=== PATIENT | female | born 1930 | race Caucasian/White ===

== ENCOUNTER 2016-12-04 10:26 | Day surgery (SDC) | payer MEDICARE, OTHER ==
[~2016-12-04] VITALS: Ht 162.6 cm; Wt 62.0 kg
[2016-12-04] VITALS (22 sets, daily range): BP systolic 93–155; BP diastolic 53–82; PULSE 64–80; RESP 13–22; TEMP 96–98.3; O2SAT 91–100; Ht 162.6 cm; Wt 62.0 kg
[~2016-12-04 10:26] MED LIST: ACET-1651 PO; ASCO-324 PO; CEFAZOLIN 1 GRAM INJECTION IV ONE; LEVO150T11 PO; LIDOCAINE 1% (10mg/ml) 2ml SDV INJ ONE; METH25VI19 IJ; MULT-806 PO; NORMAL SALINE 1,000 ML IV ONE; NOZIN NASAL SWAB NS PRN; RIVA1.5C7 PO; ROSU10TA13 PO
--- OUTSIDE RECORDS SUMMARY | 2016-12-04 10:29 | XMS REPORT | Referral Summary ---
Author Author [facility], Shobha [facility], Surgery Organization [facility], [facility], Surgery Address Unknown Phone Unavailable Care Team Providers Care Diamond Cleaver Name Role Phone ConradsofyaEl Primary Care Physician [phone] Encounter VC Date(s): 12/13/14 - 12/13/14 [facility] [address] [place], [place] [address] Discharge Diagnosis: Port-a-cath in place Discharge Disposition: 01-Home or Self Care Attending Physician: Robert Harrell MD Admitting Physician: Robert Harrell MD Referring Physician: Rhiannon Adkins MD Vital Signs No data available for this section Problem List Condition Effective Dates Status Health Status Informant Glucocorticoid Active deficiency(Confirmed ) COPD(Confirmed) Active Macular degeneration Active (senile) unspec(Confirmed) Generalized Active osteoarthrosis, involving multiple sites(Confirmed) Depressive disorder, Active not elsewhere classified(Confirmed ) High risk medication Active use(Confirmed) Essential Active hypertension (disorder)(Confirmed ) 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) Esophageal Active reflux(Confirmed) Personal history of Active unspecified circulatory disease(Confirmed) Unspecified Active hypothyroidism(Confi rmed) Malignant neoplasm Active of breast (female), unspecified site(Confirmed) Malignant neoplasm Active of rectosigmoid junction(Confirmed) Mixed Active hyperlipidemia(Confi rmed) Osteoarthrosis site Active unspecified(Confirme d) Pure Active hypercholesterolemia (Confirmed) Rheumatoid Active arthritis(Confirmed) Unspecified vitamin Active D deficiency(Confirmed ) Allergies, Adverse Reactions, Alerts Substance Reaction Severity Status aspirin Dizziness Active clindamycin Active EPINEPHrine Active omeprazole Dizziness Active vancomycin Active Medications Calcium 600+D 600 mg-200 intl units oral tablet 1 tabs, Oral, BID, # 600 tabs, 0 Refill(s), other reason (Rx) Start Date: 04/14/15 Status: Ordered Crestor 10 mg oral tablet 10 mg 1 tabs, Oral, Daily, # 30 tabs, 0 Refill(s) Start Date: 04/14/15 Status: Ordered escitalopram 10 mg oral tablet 10 mg 1 tabs, Oral, Daily, # 90 tabs, 0 Refill(s) Start Date: 04/14/15 Status: Ordered folic acid 1 mg oral tablet 3 mg 3 tabs, Oral, Daily, # 270 tabs, 3 Refill(s), Pharmacy: [facility], 3 tabs Oral Daily Start Date: 06/16/15 Status: Ordered Lasix 20 mg oral tablet 1 tabs, Oral, Daily, # 90 tabs, 0 Refill(s) Start Date: 04/12/14 Status: Ordered levothyroxine 137 mcg (0.137 mg) oral tablet 1 tabs, Oral, Daily, # 90 tabs, 0 Refill(s) Start Date: 04/12/14 Status: Ordered Lutein 20 mg oral tablet 40 mg 2 tabs, Oral, Daily, # 60 tabs, 0 Refill(s), other reason (Rx) Start Date: 04/14/15 Status: Ordered methotrexate 25 mg/mL injectable solution 0.9 mL, SubCutaneous, qWeek, ON TUESDAYS. PLEASE DISPENSE LARGE VIAL, PT CANNOT USE SMALL VIALS D/T HAND DEXERITY, # 10 mL, 1 Refill(s), Pharmacy: [facility], 0.9 mL SubCutaneous qWeek,Instr:ON TUESDAYS. PLEASE DISPENSE LARGE VIAL, P... Start Date: 12/08/14 Status: Ordered miconazole 50 mg buccal tablet 50 mg 1 tabs, Buccal, QID, # 40 tabs, 0 Refill(s), Pharmacy: [facility], 1 tabs Buccal QID Start Date: 06/16/15 Status: Ordered oxyCODONE-acetaminophen 7.5 mg-325 mg oral tablet 1 tabs, Oral, q6hr, as needed for pain, # 120 tabs, 0 Refill(s) Start Date: 06/16/15 Status: Ordered potassium chloride 20 mEq oral tablet, extended release See Instructions, TAKE 1 TABLET BY MOUTH DAILY WITH FUROSEMIDE, # 30 tabs, 2 Refill(s), eRx: [facility], TAKE 1 TABLET BY MOUTH DAILY WITH FUROSEMIDE Start Date: 04/26/14 Status: Ordered Tylenol Extra Strength 500 mg, Oral, TID, 0 Refill(s) Start Date: 04/12/14 Status: Ordered Vitamin C 500 mg oral tablet 1 tabs, Oral, Daily, # 90 tabs, 0 Refill(s) Start Date: 04/12/14 Status: Ordered Vitamin C 500 mg oral tablet 500 mg 1 tabs, Oral, Daily, # 30 tabs, 0 Refill(s), other reason (Rx) Start Date: 04/14/15 Status: Ordered Vitamin D3 1000 intl units oral tablet 1 tabs, Oral, Daily, # 30 tabs, 0 Refill(s) Start Date: 04/12/14 Status: Ordered Results No data available for this section Immunizations Vaccine Date Refusal Reason tetanus/diphth/pertuss (Tdap) adult/adol 06/03/01 influenza virus vaccine, H1N1, inactivat 07/21/09 influenza virus vaccine, live 05/02/11 influenza virus vaccine, live 04/14/09 influenza virus vaccine, live 05/16/07 pneumococcal 23-polyvalent vaccine 08/05/94 tetanus-diphth toxoids (Td) adult/adol 07/05/06 zoster vaccine live 09/05/07 Procedures Procedure Date Related Diagnosis Body Site Removal of tunneled central venous access 12/13/14 device, with subcutaneous port or pump, central or peripheral insertion Left hip hemiarthroplasty dislocation - 02/04/11 reduction Hip replacement L 09/2010 Colonoscopies 08/2008 Esophagogastroduodenoscopy 08/2008 Cataract extraction L1 06/17/04 Cataract extraction R 05/17/04 Colectomy 2003 Colon cancer surgery2 2003 RT Breast bx & Lt 2001 Left ankle and foot fusion 2000 Knee replacement L 1999 Right hip pinning 1990 Back surgery 1989 TAMIKA BSO - Total abdominal hysterectomy and 1974 bilateral salpingo-oophorectomy Back surgery 1970 Hysterectomy 1970 Tonsillectomy 195 Appendectomy 1950 Lt and rt breast bx with modified Mastectomy Modified radical rt breast Ring finger pinned Rt Carpal tunnel release 1Dr. Harsha 218 inches removed Social History Social History Type Response Smoking Status Never smoker Assessment and Plan Extracted from: Title: Ambulatory Patient Education Author: Robert Harrell MD Date : 12/13/14 Ophthalmology Incision Care An incision is when a surgeon cuts into your body tissues. After surgery, the incision needs to be cared for properly to prevent infection. HOME CARE INSTRUCTIONS Take all medicine as directed by your caregiver. Only take over-the- counter or prescription medicines for pain, discomfort, or fever as directed by your caregiver. Do not remove your bandage (dressing ) or get your incision wet until your surgeon gives you permission. In the event that your dressing becomes wet, dirty , or starts to smell, change the dressing and call your surgeon for instructions as soon as possible. Take showers. Do not take tub baths, swim, or do anything that may soak the wound until it is healed. Resume your normal diet and activities as directed or allowed. Avoid lifting any weight until you are instructed otherwise. Use anti-itch antihistamine medicine as directed by your caregiver. The wound may itch when it is healing. Do not pick or scratch at the wound. Follow up with your caregiver for stitch (suture ) or staple removal as directed. Drink enough fluids to keep your urine clear or pale yellow. SEEK MEDICAL CARE IF: You have redness, swelling, or increasing pain in the wound that is not controlled with medicine. You have drainage, blood, or pus coming from the wound that lasts longer than 1 day. You develop muscle aches, chills, or a general ill feeling. You notice a bad smell coming from the wound or dressing. Your wound edges separate after the sutures, enid, or skin adhesive strips have been removed. You develop persistent nausea or vomiting. SEEK IMMEDIATE MEDICAL CARE IF: You have a fever. You develop a rash. You develop dizzy episodes or faint while standing. You have difficulty breathing. You develop any reaction or side effects to medicine given. MAKE SURE YOU: Understand these instructions. Will watch your condition. Will get help right away if you are not doing well or get worse. Document Released: 02/08/2006 Document Revised: 10/13/2012 Document Reviewed: ExitCare Patient Information 2014 [employer]. No follow up information was provided. Extracted from: Title: Office Visit Note Author: Robert Harrell MD Date: 12/13/14 Assessment/Plan 1.Port-a-cath in place Left chest port-a-cath removed today in clinic. Technique: Skin and subcutaneous tissue injected with 1% lidocaine with epinephrine. Incision was made though prior scar and carried down to the port. Capsule was incised and scar divided that had grown in the anchoring points of the port. Scar was then incised around the catheter itself. Catheter was then slowly withdrawn easily with no resistance and pressure was held at the catheter insertion site of the left subclavianvein for 5 minutes. Hemostasis was good. 3-0 Vicryl U stitch was placed where catheter tunneled into the subcutaneous tissue. Incision was then closed in 2 layers. 3-0 Vicryl deep dermal sutures and 4-0 Monocryl subcuticular stitch. Dermabond skin glue was placed for dressing. Catheter was intact and the tip was not frayed. Incision care instructions given. Tylenol or ibuprofen as needed for pain. Instructed them to call with any questions or concerns.
--- OUTSIDE RECORDS SUMMARY | 2016-12-04 10:30 | XMS REPORT | Referral Summary ---
Author Author [facility], Rheumatology Organization [facility], Rheumatology Address Unknown Phone Unavailable Care Team Providers Care Registered Nurse Bone Marrow Transplant Name Role Phone El Yanez Primary Care Physician [phone] Encounter VC Date(s): 01/16/16 - 01/16/16 [facility], Rheumatology [address] [place], [place] [address] Discharge Diagnosis: Rheumatoid arthritis Discharge Diagnosis: Primary generalized (osteo)arthritis Discharge Diagnosis: Glucocorticoid deficiency Discharge Diagnosis: Depressive disorder, not elsewhere classified Discharge Diagnosis: High risk medication use Discharge Disposition: 01-Home or Self Care Attending Physician: Rhiannon Adkins MD Admitting Physician: Rhiannon Adkins MD Referring Physician: El Yanez MD Vital Signs Most recent to 1 oldest [Reference Range]: Temperature Oral 36.7 degC [35.8-37.3 degC] (01/16/16 9:44 AM) Peripheral Pulse 71 bpm Rate [60-100 bpm] (01/16/16 9:44 AM) Blood Pressure 109/58 mmHg [90-140/60-90 mmHg] (01/16/16 9:44 AM) Problem List Condition Effective Dates Status Health Status Informant Glucocorticoid Active deficiency(Confirmed ) COPD(Confirmed) Active Macular degeneration Active (senile) unspec(Confirmed) High risk medication Active use(Confirmed) Essential Active hypertension (disorder)(Confirmed ) 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) Personal history of Active unspecified circulatory disease(Confirmed) Unspecified Active hypothyroidism(Confi rmed) Primary generalized Active (osteo)arthritis(Con firmed) Malignant neoplasm Active of breast (female), unspecified site(Confirmed) Malignant neoplasm Active of rectosigmoid junction(Confirmed) Mixed Active hyperlipidemia(Confi rmed) Postmenopausal bone < 3/14/16 Resolved loss(Confirmed) Pure Active hypercholesterolemia (Confirmed) Depressive disorder, Active not elsewhere classified(Confirmed ) Rheumatoid Active arthritis(Confirmed) Allergies, Adverse Reactions, Alerts Substance Reaction Severity Status aspirin Dizziness Active clindamycin Active donepezil unwanted dreams, generalized unease Medium Active EPINEPHrine Active omeprazole Dizziness Active vancomycin [...] Daily, # 270 tabs, 3 Refill(s), Pharmacy: [facility], 3 tabs Oral Daily Start Date: 07/18/15 Status: Ordered Lasix 20 mg oral tablet [...] Status: Ordered methotrexate 25 mg/mL injectable solution 22.5 mg 0.9 mL, SubCutaneous, qWeek, ON TUESDAYS. PLEASE DISPENSE LARGE VIAL, PT CANNOT USE SMALL VIALS D/T HAND DEXERITY, # 10 mL, 1 Refill(s), Pharmacy: [facility], 0.9 mL SubCutaneous qWeek,Instr:ON TUESDAYS. PLEASE DISPENSE LARGE... Start Date: 07/18/15 Status: Ordered miconazole 50 mg buccal tablet 50 mg 1 tabs, Buccal, QID, # 40 tabs, 0 Refill(s), Pharmacy: [facility], 1 tabs Buccal QID Start Date: 06/16/15 Status: Ordered oxyCODONE-acetaminophen 7.5 mg-325 mg oral tablet 1 tabs, Oral, q6hr, as needed for pain, # 120 tabs, 0 Refill(s) Start Date: 06/16/15 Status: Ordered potassium chloride 20 mEq oral tablet, extended release See Instructions, TAKE 1 TABLET BY MOUTH DAILY WITH FUROSEMIDE, # 30 tabs, 2 Refill(s), eRx: [facility], TAKE 1 TABLET BY MOUTH DAILY WITH FUROSEMIDE Start Date: 04/26/14 Status: Ordered rivastigmine 1.5 mg oral capsule 1.5 mg 1 caps, Oral, BID, # 180 caps, 0 Refill(s) Start Date: 01/16/16 Status: Ordered Tylenol Extra Strength 500 mg, [...] vaccine, H1N1, inactivat 07/21/09 influenza virus vaccine, inactivated1 05/05/15 influenza virus vaccine, live 05/02/11 influenza virus vaccine, live 04/14/09 influenza virus vaccine, live 05/16/07 pneumococcal 23-polyvalent vaccine2 05/05/15 pneumococcal 23-polyvalent vaccine 08/05/94 tetanus-diphth toxoids (Td) adult/adol 07/05/06 zoster vaccine live 09/05/07 1Result Comment: [07/18/2015] PCP OFFICE 2Result Comment: [07/18/2015] PCP OFFICE Procedures Procedure Date Related Diagnosis Body Site Left hip hemiarthroplasty dislocation - 02/04/11 reduction Hip replacement L 09/2010 Colonoscopies 08/2008 Esophagogastroduodenoscopy 08/2008 Cataract extraction L1 06/17/04 Cataract extraction R 05/17/04 Colectomy 2003 Colon cancer surgery2 2002 RT Breast bx & Lt 2001 Left ankle and foot fusion 2000 Knee replacement L 1999 Right hip pinning 1990 Back surgery 1989 TAMIKA BSO - Total abdominal hysterectomy and 1974 bilateral salpingo-oophorectomy Back surgery 1970 Hysterectomy 1970 Tonsillectomy 1953 Appendectomy 1950 Lt and rt breast bx with modified Mastectomy Modified radical rt breast Ring finger pinned Rt Carpal tunnel release 1Dr. Harsha 218 inches removed Social History Social History Type Response Smoking Status Never smoker Assessment and Plan Extracted from: Title: Office Visit Note Author: Rhiannon Adkins MD Date: 01/16/16 Assessment/Plan 1.Rheumatoid arthritis 2.Primary generalized (osteo)arthritis 3.Depressive disorder, not elsewhere classified 4.Glucocorticoid deficiency 5.High risk medication use
--- OUTSIDE RECORDS SUMMARY | 2016-12-04 10:30 | XMS REPORT | Referral Summary ---
Author Author [facility], Rheumatology Organization [facility], Rhe[facility]ology Address Unknown Phone Unavailable Care Team Providers Care Digital Asset Specialist Name Role Phone Conradsofya El Primary Care Physician [phone] Encounter VC Date(s): 04/14/15 - 04/14/15 [facility], Rheumatology [address] [place], [place] [address] Discharge Diagnosis: Rheumatoid arthritis Discharge Diagnosis: Generalized osteoarthrosis, involving multiple sites Discharge Diagnosis: High risk medication use Discharge Diagnosis: Depressive disorder, not elsewhere classified Discharge Diagnosis: Unspecified vitamin D deficiency Discharge Disposition: 01-Home or Self Care Attending Physician: Rhiannon Adkins MD Admitting Physician: Rhiannon Adkins MD Vital Signs Most recent to 1 oldest [Reference Range]: Temperature Oral 36.6 degC [35.8-37.3 degC] (04/14/15 9:35 AM) Peripheral Pulse 70 bpm Rate [60-100 bpm] (04/14/15 9:35 AM) Blood Pressure 95/56 mmHg [90-140/60-90 mmHg] (04/14/15 9:35 AM) Problem List Condition Effective Dates Status [...] Mixed Active hyperlipidemia(Confi rmed) Postmenopausal bone < 14/16 Resolved loss(Confirmed) Pure Active hypercholesterolemia (Confirmed) Depressive [...] Daily, # 270 tabs, 3 Refill(s), Pharmacy: [facility], 3 tabs Oral Daily Start Date: 07/18/15 [...] # 10 mL, 1 Refill(s), Pharmacy: [facility], 0.9 mL SubCutaneous qWeek,Instr:ON TUESDAYS. PLEASE DISPENSE LARGE... Start Date: 07/18/15 Status: Ordered miconazole 50 mg buccal tablet 50 mg 1 tabs, Buccal, QID, # 40 tabs, 0 Refill(s), Pharmacy: [facility], 1 tabs Buccal QID Start Date: 06/16/15 Status: Ordered oxyCODONE-acetaminophen 7.5 mg-325 mg oral tablet 1 tabs, Oral, q6hr, as needed for pain, # 120 tabs, 0 Refill(s) Start Date: 06/16/15 Status: Ordered potassium chloride 20 mEq oral tablet, extended release See Instructions, TAKE 1 TABLET BY MOUTH DAILY WITH FUROSEMIDE, # 30 tabs, 2 Refill(s), eRx: [facility], TAKE 1 TABLET BY MOUTH DAILY WITH [...] Refill(s) Start Date: 04/12/14 Status: Ordered Results Hematology Most recent to 1 oldest [Reference Range]: WBC [4.8-10.8 6.4 10*3/uL 10*3/uL] (04/14/15 11:20 AM) RBC [4.00-5.20] 3.76 *LOW* (04/14/15 11:20 AM) Hgb [12.0-16.0 11.5 gm/dL gm/dL] *LOW* (04/14/15 11:20 AM) Hct [37.0-47.0 %] 35.9 % *LOW* (04/14/15 11:20 AM) MCV [82.0-99.0 fL] 95.5 fL (04/14/15 11:20 AM) MCH [27.0-32.0 pg] 30.6 pg (04/14/15 11:20 AM) MCHC [32.0-36.0 32.0 gm/dL gm/dL] (04/14/15 11:20 AM) RDW [11.5-14.5 %] 13.6 % (04/14/15 11:20 AM) Platelet [150-400 213 10*3/uL 10*3/uL] (04/14/1520 AM) MPV [8.8-14.8 fL] 10.5 fL (04/14/15 AM) Immature 0.3 % Granulocytes (04/14/15) [0.0-1.0 %] Neutrophils [51-75 59 % %] (04/14/15 AM) Lymphocytes [20-46 23 % %] (04/14/15 AM) Monocytes [4-11 %] 11 % (04/14/15 AM) Eosinophils [0-4 %] 6 % *HI* (04/14/15) Basophils [0-2 %] 1 % (04/14/15 AM) Neutro Absolute 3.82 10*3 [1.90-7.00 10*3] (04/14/15 AM) Lymph Absolute 1.47 10*3 [0.80-3.30 10*3] (04/14/15 AM) [place] Absolute 0.69 10*3 [0.30-1.00 10*3] (04/14/15 AM) Eos Absolute 0.40 10*3 [0.00-0.50 10*3] (04/14/15 AM) Baso Absolute 0.03 10*3 [0.00-0.20 10*3] (04/14/15 AM) Chemistry Most recent to 1 oldest [Reference Range]: Sodium Lvl [135-144 143 mEq/L mEq/L] (04/14/15 AM) Potassium Lvl 4.6 mEq/L [3.5-5.2 mEq/L] (04/14/15 AM) Chloride [99-111 108 mEq/L mEq/L] (04/14/15 AM) CO2 [22-31 mEq/L] 26 mEq/L (04/14/15 AM) AGAP [3-20] 9 (04/14/15 AM) BUN [10-20 mg/dL] 32 mg/dL *HI* (9/10/15 11:20 AM) Glucose Lvl [70-99 100 mg/dL mg/dL] *HI* (04/14/15 11:20 AM) Creatinine Lvl 1.65 mg/dL [0.57-1.11 mg/dL] *HI* (04/14/15 11:20 AM) eGFR [>60 mL/min] 30 mL/min 1 *ABN* (04/14/15 11:20 AM) Calcium Lvl 9.9 mg/dL [8.9-10.5 mg/dL] (04/14/15 11:20 AM) Albumin Lvl [3.4-4.8 4.0 gm/dL gm/dL] (04/14/15 11:20 AM) Total Protein 6.6 gm/dL [6.2-8.1 gm/dL] (04/14/15 11:20 AM) Globulin [1.8-4.0 2.6 gm/dL gm/dL] (04/14/15 11:20 AM) ALT [0-55 U/L] 11 U/L (04/14/15:20 AM) AST [5-34 U/L] 20 U/L (04/14/15 11:20 AM) Alk Phos [40-150 63 U/L U/L] (04/14/15 11:20 AM) Bili Total [0.2-1.2 0.4 mg/dL mg/dL] (04/14/15 11:20 AM) 1Result Comment: Multiply eGFR results by 1.21 for race. Immunizations Vaccine Date Refusal Reason tetanus/diphth/pertuss (Tdap) [...] surgery2 2003 RT Breast bx & Lt 2002 Left ankle and foot fusion 2001 Knee replacement L 1999 Right hip pinning [...] Extracted from: Title: Ambulatory Patient Education Author: Rhiannon Adkins MD Date: 05/19 Home Health Care Immunosuppression Immunosuppression is the use of medicine to lower your body's immune response. Your immune response is your body's natural reaction to defend against something new or unknown that enters your body, such as viruses and bacteria. WHY AM I RECEIVING IMMUNOSUPPRESSION? You may be receiving immunosuppression to hold back your body's immune response for one of the following reasons: As treatment for an autoimmune disorder. These disorders cause your body to use the immune response to attack itself. To prevent your body from rejecting a transplant of cells, tissues, or organs that you have received from a donor. When you receive a transplant from a donor, your immune system knows that something is new and unknown to your body. Sometimes this triggers an immune response to attack the transplant. To prevent inflammation caused by certain long-term (chronic) conditions such as asthma or chronic obstructive pulmonary disease (COPD). Often these types of chronic conditions are associated with severe immune responses. These responses can cause inflammation that can lead to life-threatening situations. Suppression of your body's immune system also affects your body's ability to defend itself and can lead to certain side effects. WHAT ARE THE SIDE EFFECTS OF IMMUNOSUPPRESSION? The major side effect of immunosuppression is an increased risk of infection. You should call your health care provider if you have the following signs or symptoms of an infection: A fever. Drainage or bad odor of drainage from your surgical scar if you had an organ transplant. Burning when you pass your urine. A cold or cough that will not go away. Body aches. Other side effects typically go away as your body adjusts to the medicine. These side effects can include: Nausea and vomiting. Loss of appetite. Increased hair growth. Shaky hands (hand tremor). Adjusting medicine dosages or treating the side effects will often decrease problems. WHY IS IT IMPORTANT FOR ME TO TAKE MY MEDICINE EXACTLY INSTRUCTED? In order for immunosuppression to work, your body needs to have just the right level of medicine all of the time. For this to happen, your health care provider will tell you exactly how much and exactly when you need to take your medicine. It is very important to follow your health care provider's instructions. Even missing a single dose can cause your condition to worsen. If you forget a dose of medicine, take it as soon as you remember and call your health care provider right away. However, if you miss a dose and it is time to take your next dose, do not take a double dose. WHAT CAN HELP ME DEVELOP A ROUTINE TO TAKE MY MEDICINE EXACTLY INSTRUCTED? Use a tool such as a pill organizer, a written chart from your health care provider, a notebook, a binder, or your own calendar to organize your daily medicine(s). Your tool should help you keep track of the: Name of the medicine and the dose. Days to take the medicine(s). Time of day to take the medicine(s). Set cues or reminders for taking your medicine(s), such as setting an alarm on a clock or cell phone. Review your medicine schedule with family members or friends so they can help you remember when to take your medicine(s) and how much to take. Document Released: 07/27/2014 Document Reviewed: 06/23/2014 ExitCare Patient Information 2015 [facility]. This information is not intended to replace advice given to you by your health care provider. Make sure you discuss any questions you have with your health care provider. No follow up information was provided. Extracted from: Title: Office Visit Note Author: Rhiannon Adkins MD Date: 04/14/15 Assessment/Plan 1.Rheumatoid arthritis 2.Generalized osteoarthrosis, involving multiple sites 3.Unspecified vitamin D deficiency 4.Depressive disorder, not elsewhere classified 5.High risk medication use Ordered: Comprehensive Metabolic Panel Orders: ascorbic acid, 500 mg 1 tabs, Oral, Daily, # 30 tabs, 0 Refill(s), other reason (Rx) calcium-vitamin D, 1 tabs, Oral, BID, # 600 tabs, 0 Refill(s), other reason ( Rx) lutein, 40 mg 2 tabs, Oral, Daily, # 60 tabs, 0 Refill(s), other reason (Rx) oxyCODONE-acetaminophen, 1 tabs, Oral, q6hr, as needed for pain, # 120 tabs, 0 Refill(s) CBC w/ Differential CBC w/ Differential CBC w/ Differential Comprehensive Metabolic Panel Comprehensive Metabolic Panel Comprehensive Metabolic Panel
--- OUTSIDE RECORDS SUMMARY | 2016-12-04 10:30 | XMS REPORT ---
Author Author HITESH CONROY [facility] and [facility] Address Unknown Phone Unavailable Care Team Providers Care Power House Control Room Operator Name Role Phone Dr. NILSA PACE Primary Care Physician Unavailable Allergies Allergy Description Allergy Type IODINE-CONTAINING Drug allergy (disorder) CONTRAST MEDIA, IODINE RELATED Drug allergy (disorder) Procedures Procedure Type Procedure Description Date Physicians No codified procedures found for this patient. Results TSH Observation Test Name Observation Test Result Observation Test Units Observation Test Date Observation Test Time TSH 0.27 uIU/mL 2012 15:57 THYROXINE (T4) FREE Observation Test Name Observation Test Result Observation Test Units Observation Test Date Observation Test Time FT4 1.19 ng/dL 2012 15:58 History of Immunizations Immunization Date Influenza, seasonal, injectable 05/06/2012 pneumococcal, unspecified formulation 05/05/2011 Plan of Care Item Text No plan of care items. Procedure Date/Time/Initials Critical? Status No plan of care procedures. Medication List Medication Dose Units Frequency Start Date/Time Status Diltiazem HCl 120MG Oral Tablet 120 MILLIGRAMS DAILY 10/06/12 Active Methotrexate Sodium 25MG/ML Injection Solution 0.9 EACH WEEKLY 10/06/12 Active Optive 0.5%-0.9% Ophthalmic Solution 1 EACH TWICE A DAY 10/06/12 Active Klor-Con 10 10MEQ Oral Tablet, Extended Release 20 MEQ DAILY 10/06/12 Inactive Tylenol Extra Strength 500MG Oral Capsule 500 MILLIGRAMS NEEDED 10/06/12 Active Vitamin C 500MG Oral Tablet 500 MILLIGRAMS DAILY 10/06/12 Active Crestor 10MG Oral Tablet 10 MILLIGRAMS AT BEDTIME 10/06/12 Active Calcitrate 950MG Oral Tablet 950 MILLIGRAMS THREE TIMES DAILY 10/06/12 Active Folic Acid 0.4MG Oral Tablet 0.4 MILLIGRAMS DAILY 10/06/12 Active Lasix 20MG Oral Tablet 20 MILLIGRAMS DAILY 10/06/12 Active Lutein 20MG Oral Tablet 20 MILLIGRAMS DAILY 10/06/12 Active Refresh Ophthalmic Solution 1 EACH NEEDED 10/06/12 Active Levothyroxine Sodium 0.137MG Oral Tablet 0.137 MILLIGRAMS DAILY 10/06/12 Active Doxycycline 100MG Oral Capsule 100 MILLIGRAMS TWICE A DAY 10/06/12 Inactive Problem List Problem Entered Date Resolved Date CHRONIC KIDNEY DISEASE 10/08/2012
--- OUTSIDE RECORDS SUMMARY | 2016-12-04 10:30 | XMS REPORT | Referral Summary ---
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 Discharge Diagnosis: CRI (chronic renal insufficiency) Discharge Disposition: 01-Home or Self Care Attending Physician: Rhiannon Adkins MD Admitting Physician: Rhiannon Adkins MD Referring Physician: Robert Rodriguez MD Vital Signs Most recent to 1 oldest [Reference Range]: Temperature Oral 36.8 degC [35.8-37.3 degC] (01/12/15 10:11 AM) Peripheral Pulse 78 bpm Rate [60-100 bpm] (01/12/15 10:11 AM) Blood Pressure 120/56 mmHg [90-140/60-90 mmHg] (01/12/15 10:11 AM) Problem List Condition Effective Dates Status [...] folic acid 1 mg oral tablet 3 tabs, Oral, Daily, 0 Refill(s) Start Date: 04/12/14 Status: Ordered Lasix 20 mg oral tablet [...] # 10 mL, 1 Refill(s), Pharmacy: [facility], 0.9 mL SubCutaneous qWeek,Instr:ON TUESDAYS. PLEASE DISPENSE LARGE VIAL, P... Start Date: 12/08/14 Status: Ordered oxyCODONE-acetaminophen 7.5 mg-325 mg oral tablet 1 tabs, Oral, q6hr, as needed for pain, # 120 tabs, 0 Refill(s) Start Date: 04/14/15 Status: Ordered potassium chloride 20 mEq oral tablet, extended release See Instructions, TAKE 1 TABLET BY MOUTH DAILY WITH FUROSEMIDE, # 30 tabs, 2 Refill(s), eRx: [facility], TAKE 1 TABLET BY MOUTH DAILY [...] to 1 oldest [Reference Range]: WBC [4.8-10.8 7.0 10*3/uL 10*3/uL] (01/12/15 11:43 AM) RBC [4.00-5.20 3.66 10*6/uL 10*6/uL] *LOW* (01/12/15 11:43 AM) Hgb [12.0-16.0 11.0 gm/dL gm/dL] *LOW* (01/12/15 11:43 AM) Hct [37.0-47.0 %] 34.6 % *LOW* (01/12/15 11:43 AM) MCV [82.0-99.0 fL] 94.5 fL (01/12/15 11:43 AM) MCH [27.0-32.0 pg] 30.1 pg (01/12/15 11:43 AM) MCHC [32.0-36.0 31.8 gm/dL gm/dL] *LOW* (01/12/15 11:43 AM) RDW [11.5-14.5 %] 16.3 % *HI* (01/12/15 11:43 AM) Platelet [150-400 184 10*3/uL 10*3/uL] (01/12/15 11:43 AM) MPV [8.8-14.8 fL] 10.3 fL (01/12/1543 AM) Immature 0.1 % Granulocytes (01/12/15) [0.0-1.0 %] Neutrophils [51-75 71 % %] (01/12/15 AM) Lymphocytes [20-46 19 % %] *LOW* (01/12/15) Monocytes [4-11 %] 7 % (01/12/15 AM) Eosinophils [0-4 %] 2 % (01/12/15 AM) Basophils [0-2 %] 0 % (01/12/1543 AM) Neutro Absolute 5.01 10*3 [1.90-7.00 10*3] (01/12/15 AM) Lymph Absolute 1.33 10*3 [0.80-3.30 10*3] (01/12/1543 AM) [place] Absolute 0.52 10*3 [0.30-1.00 10*3] (01/12/1543 AM) Eos Absolute 0.14 10*3 [0.00-0.50 10*3] (01/12/1543 AM) Baso Absolute 0.02 10*3 [0.00-0.20 10*3] (01/12/15 AM) Chemistry Most recent to 1 oldest [Reference Range]: Sodium Lvl [135-144 145 mEq/L mEq/L] *HI* (01/12/15 AM) Potassium Lvl 4.2 mEq/L [3.5-5.2 mEq/L] (01/12/15 AM) Chloride [99-111 110 mEq/L mEq/L] (01/12/15 AM) CO2 [22-31 mEq/L] 23 mEq/L (01/12/15 AM) AGAP [3-20] 12 (01/12/15 AM) BUN [10-20 mg/dL] 20 mg/dL (01/12/1543 AM) Glucose Lvl [70-99 84 mg/dL mg/dL] (01/12/15 AM) Creatinine Lvl 1.71 mg/dL [0.57-1.11 mg/dL] *HI* (01/12/15 11:43 AM) eGFR [>60 mL/min] 28 mL/min 1 *ABN* (01/12/15 11:43 AM) Calcium Lvl 9.3 mg/dL [8.9-10.5 mg/dL] (01/12/15 11:43 AM) Albumin Lvl [3.4-4.8 4.0 gm/dL gm/dL] (01/12/15 11:43 AM) Total Protein 6.5 gm/dL [6.2-8.1 gm/dL] (01/12/15 11:43 AM) Globulin [1.8-4.0 2.5 gm/dL gm/dL] (01/12/15 11:43 AM) ALT [0-55 U/L] 7 U/L (01/12/15 11:43 AM) AST [5-34 U/L] 18 U/L (01/12/15 11:43 AM) Alk Phos [40-150 57 U/L U/L] (01/12/15 11:43 AM) Bili Total [0.2-1.2 0.4 mg/dL mg/dL] (01/12/15 11:43 AM) 1Result Comment: Multiply eGFR results by [...] L1 06/17/04 Cataract extraction R 05/17/04 Colectomy 2002 Colon cancer surgery2 2002 RT Breast bx & Lt 2001 Left ankle and foot fusion 2000 Knee replacement L 1999 Right hip pinning 1990 Back surgery 1989 TAMIKA BSO - Total abdominal hysterectomy and 1974 bilateral salpingo-oophorectomy Back surgery 1970 Hysterectomy 1970 Tonsillectomy 1952 Appendectomy 1949 Lt and rt breast bx with modified Mastectomy Modified radical rt breast Ring finger pinned Rt Carpal tunnel release 1Dr. Harsha 218 inches removed Social History Social History Type Response Smoking Status Never smoker Assessment and Plan Extracted from: Title: Ambulatory Patient Education Author: Rhiannon Adkins MD Date: 05/19 [facility] Medicine Yesenia Infection, Adult A yesenia infection (also called yeast, fungus and Monilia infection) is an overgrowth of yeast that can occur anywhere on the body. A yeast infection commonly occurs in warm, moist body areas. Usually, the infection remains localized but can spread to become a systemic infection. A yeast infection may be a sign of a more severe disease such as diabetes, leukemia, or AIDS. A yeast infection can occur in both men and women. In women, Yesenia vaginitis is a vaginal infection. It is one of the most common causes of vaginitis. Men usually do not have symptoms or know they have an infection until other problems develop. Men may find out they have a yeast infection because their sex partner has a yeast infection. Uncircumcised men are more likely to get a yeast infection than circumcised men. This is because the uncircumcised glans is not exposed to air and does not remain as dry as that of a circumcised glans. Older adults may develop yeast infections around dentures. CAUSES Women Antibiotics. Steroid medication taken for a long time. Being overweight (obese ). Diabetes. Poor immune condition. Certain serious medical conditions. Immune suppressive medications for organ transplant patients. Chemotherapy. . Menstration. Stress and fatigue. Intravenous drug use. Oral contraceptives. Wearing tight-fitting clothes in the crotch area. Catching it from a sex partner who has a yeast infection. Spermicide. Intravenous, urinary, or other catheters. Men Catching it from a sex partner who has a yeast infection. Having oral or anal sex with a person who has the infection. Spermicide. Diabetes. Antibiotics. Poor immune system. Medications that suppress the immune system. Intravenous drug use. Intravenous, urinary, or other catheters. SYMPTOMS Women Thick, white vaginal discharge. Vaginal itching. Redness and swelling in and around the vagina. Irritation of the lips of the vagina and perineum. Blisters on the vaginal lips and perineum. Painful sexual intercourse. Low blood sugar (hypoglycemia ). Painful urination. Bladder infections. Intestinal problems such as constipation, indigestion, bad breath, bloating , increase in gas, diarrhea, or loose stools. Men Men may develop intestinal problems such as constipation, indigestion, bad breath, bloating, increase in gas, diarrhea, or loose stools. Dry, cracked skin on the penis with itching or discomfort. Jock itch. Dry, flaky skin. Athlete's foot. Hypoglycemia. DIAGNOSIS Women A history and an exam are performed. The discharge may be examined under a microscope. A culture may be taken of the discharge. Men A history and an exam are performed. Any discharge from the penis or areas of cracked skin will be looked at under the microscope and cultured. Stool samples may be cultured. TREATMENT Women Vaginal antifungal suppositories and creams. Medicated creams to decrease irritation and itching on the outside of the vagina. Warm compresses to the perineal area to decrease swelling and discomfort. Oral antifungal medications. Medicated vaginal suppositories or cream for repeated or recurrent infections. Wash and dry the irritation areas before applying the cream. Eating yogurt with lactobacillus may help with prevention and treatment. Sometimes painting the vagina with gentian jayde solution may help if creams and suppositories do not work. Men Antifungal creams and oral antifungal medications. Sometimes treatment must continue for 30 days after the symptoms go away to prevent recurrence. HOME CARE INSTRUCTIONS Women Use cotton underwear and avoid tight-fitting clothing. Avoid colored, scented toilet paper and deodorant tampons or pads. Do not douche. Keep your diabetes under control. Finish all the prescribed medications. Keep your skin clean and dry. Consume milk or yogurt with lactobacillus active culture regularly. If you get frequent yeast infections and think that is what the infection is, there are kaqk-nwb-[id number] medications that you can get. If the infection does not show healing in 3 days, talk to your caregiver. Tell your sex partner you have a yeast infection. Your partner may need treatment also, especially if your infection does not clear up or recurs. Men Keep your skin clean and dry. Keep your diabetes under control. Finish all prescribed medications. Tell your sex partner that you have a yeast infection so they can be treated if necessary. SEEK MEDICAL CARE IF: Your symptoms do not clear up or worsen in one week after treatment. You have an oral temperature above 102 F (38.9 C). You have trouble swallowing or eating for a prolonged time. You develop blisters on and around your vagina. You develop vaginal bleeding and it is not your menstrual period. You develop abdominal pain. You develop intestinal problems as mentioned above. You get weak or lightheaded. You have painful or increased urination. You have pain during sexual intercourse. MAKE SURE YOU: Understand these instructions. Will watch your condition. Will get help right away if you are not doing well or get worse. Document Released: 08/29/2005 Document Revised: 10/13/2012 Document Reviewed: [facility] Patient Information 2014 [place]. No follow up information was provided.
--- OUTSIDE RECORDS SUMMARY | 2016-12-04 10:31 | XMS REPORT | Continuity of Care Document ---
Author Author Rhiannon Adkins MD [facility] Address [address] [place] [address] Phone Care Team Providers Care Surveillance Supervisor Name Role Phone Will, Jaya Shen Payers Payer name Insurance type Covered alliance party ID Authorization(s) Unknown Problems Condition Effective Dates (start - stop) Clinical Status Rheumatoid Arthritis - *Controlled Rheumatoid Arthritis - *Controlled Osteoarthritis, Generalized - *Chronic Therapeutic Drug Monitoring - *Chronic Cough - *Chronic Other diseases of nasal cavity and sinuses - *Acute Rheumatoid arthritis - *Chronic Unspecified acquired hypothyroidism - *Chronic Other and unspecified hyperlipidemia - *Chronic Unspecified essential hypertension - *Chronic Depressive disorder, not elsewhere classified - *Chronic Malignant neoplasm of breast (female), unspecified site - * Chronic Other malaise and fatigue - *Chronic Rheumatoid Arthritis - *Controlled Osteoarthritis, Generalized - *Stable Therapeutic Drug Monitoring - *Chronic Rheumatoid Arthritis - *Controlled Osteoarthritis, Generalized - *Stable Therapeutic Drug Monitoring - Chronic Lumbago - *Worse Pain in limb - *Acute Anxiety state, unspecified - *Chronic Esophageal reflux - *Chronic 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 - *Acute Esophageal reflux - *Chronic Anxiety state, unspecified - *Chronic - Pain in limb - *Chronic GLUCOCORTICOID DEFICIENT - *Chronic Open wound of foot except toe(s) alone, complicated - *Acute Exudative senile macular degeneration of retina - *Chronic Rheumatoid Arthritis - *Chronic Osteoarthritis, Generalized - *Chronic Therapeutic Drug Monitoring - *Chronic HX-CIRCULATORY DIS NOS - MAL DIDI RECTOSIGMOID JCT - MALIGN NEOPL BREAST NOS - HYPOTHYROIDISM NOS - GLUCOCORTICOID DEFICIENT - VITAMIN D DEFICIENCY NOS - PURE HYPERCHOLESTEROLEM - 311 - DEPRESSIVE DISORDER NEC - MACULAR DEGENERATION NOS - 496 - CHR AIRWAY OBSTRUCT NEC - ESOPHAGEAL REFLUX - RHEUMATOID ARTHRITIS - OSTEOARTHROS NOS-UNSPEC - Rheumatoid Arthritis - *Controlled Depression - *Controlled Osteoarthritis, Generalized - *Chronic Therapeutic Drug Monitoring - *Chronic Rheumatoid Arthritis - *Controlled Depression - *Controlled Osteoarthritis, Generalized - Chronic Therapeutic Drug Monitoring - Chronic Chronic kidney disease, unspecified - *Chronic Pain in limb - *Acute Osteoarthrosis, generalized, involving unspecified site - * Chronic Rheumatoid Arthritis - *Controlled Osteoarthritis, Generalized - *Chronic Therapeutic Drug Monitoring - *Chronic Glucocorticoid deficiency - Asymptomatic Unspecified hypothyroidism - *Controlled Lumbago - *Worse Unspecified vitamin d deficiency - *Chronic Rheumatoid Arthritis - Chronic Osteoarthritis, Generalized - Chronic Therapeutic Drug Monitoring - Chronic Depression - Chronic Rheumatoid Arthritis - Chronic Osteoarthritis, Generalized - Chronic Therapeutic Drug Monitoring - Chronic Depression - Chronic Esophageal reflux - *Chronic Shortness of breath - *Chronic Chronic airway obstruction, not elsewhere classified - Mild Cough - *Acute Acute bronchitis - *Acute Unspecified cellulitis and abscess of toe - *Acute Acute bronchitis - *Acute Pain in limb - *Acute Family History Family Member Diagnosis Age At Onset Status Father (Unknown) epilepsy Yes sibling (Unknown) Cancer -colon Yes siblings (Unknown) Cancer -brain tumor Yes sibling (Unknown) Fibrocystic Breast Disease Yes Daughter (Unknown) Diabetes Yes Mother (Unknown) Cancer -breast Yes sibling (Unknown) Diabetes Yes Social History Social History Element Description Quantity Unknown Allergies, Adverse Reactions, Alerts Substance Reaction Severity Status ASPIRIN Dizziness Unknown OMEPRAZOLE Dizziness Unknown OMEPRAZOLE MAGNESIUM Dizziness Unknown VANCOMYCIN Unknown EPINEPHRINE Unknown MEPERIDINE HCL Unknown ESOMEPRAZOLE MAG Unknown CLINDAMYCIN Unknown METHOTREXATE Unknown NALTREXONE ANALOGUES Unknown METOPROLOL SUCCINATE MENTAL CHANGES,CONFUSION Unknown KETOROLAC TROMETHAMINE Unknown WARNIN allergie(s) could not be collected because the type is not supported. Please contact the source practice for further details. Medications Medication Instructions Dosage Effective Dates (start - stop) Status mupirocin 2 % topical ointment apply by topical route 2 times every day a small amount to the affected area 0 - Active Crestor 10 mg tablet take 1 tablet (10MG) by oral route every day 10 MG - Active lutein 6 mg capsule dly - Active Vitamin C 500 mg tablet take 1 Tablet by Oral route every day 0 2010 - Active multivitamin tablet take 1 tablet by oral route every day with food 0 - Active CALCIUM + VIT D (unknown strength) take 1 Tablet by Oral route every day - Active diltiazem 120 mg tablet as directed - Active Lasix 20 mg tablet take 1 tablet (20MG) by oral route every day 20 MG - Active Levothroid 137 mcg tablet take 1 tablet (137MCG) by oral route every day 137 MCG - Active Tylenol Extra Strength 500 mg tablet take 1 tablet tid - Active methotrexate sodium 25 mg/mL injection solution INJECT 0.9 ML'S INTRAMUSCULARLY ONCE WEEKLY. - Active folic acid 1 mg tablet TAKE 3 TABLETS DAILY - Active potassium chloride ER 20 mEq tablet,extended release(part/cryst) take 1 by Oral route every day 0 - Active Immunizations Vaccine Date Status Comments flu (split) (3 yrs or older) completed - Completed reason: Previously given Influenza, H1N1, IM completed - Completed reason: Previously Given pneumo (2 yrs or older) (PPV23) completed - Completed reason: Previously Given Tdap completed - Completed reason: Previously Given flu (split) (3 yrs or older) completed flu (split) (3 yrs or older) completed - Completed reason: other registry Td (adult) completed - Completed reason: Previously Given Zoster completed - Completed reason: previously given Results Test Name Date and Time Measure Units Reference Range Abnormal Flag Comments Panel Description: CBC WBC 10:11:00 12.1 K/uL 4.8-10.8 H RBC 10:11:00 4.07 M/uL 4.00-5.20 HGB 10:11:00 12.2 g/dl 12.0-16.0 HCT 10:11:00 37.6 % 37.0-47.0 MCV 10:11:00 92.4 fL 82.0-99.0 MCH 10:11:00 30.0 pg 27.0-32.0 MCHC 10:11:00 32.4 g/dL 32.0-36.0 RDW 10:11:00 15.3 % 11.5-14.5 H MPV 10:11:00 11.0 fL 8.8-14.8 Platelet Count 10:11:00 221 K/uL 150-400 Immature Granulocytes 10:11:00 0.2 % 0.0-1.0 Absolute Neutrophils 10:11:00 8.00 THOUS 1.90-7.00 H Absolute Lymphocytes 10:11:00 2.22 THOUS 0.80-3.30 Absolute Monocytes 10:11:00 1.59 THOUS 0.30-1.00 H Absolute Eosinophils 10:11:00 0.25 THOUS 0.00-0.50 Absolute Basophils 10:11:00 0.03 THOUS 0.00-0.20 Neutrophils 10:11:00 66 % 51-75 Lymphocytes 10:11:00 18 % 20-46 L Monocytes 10:11:00 13 % 4-11 H Eosinophils 10:11:00 2 % 0-4 Basophils 10:11:00 0 % 0-2 Testing performed at [facility] [address] [facility] [address] Custom Framing Specialist Mello Ramirez MD Panel Description: Chemistry Profile Glucose 10:11:00 67 mg/dL 70-99 L BUN 10:11:00 28 mg/dL 10-20 H Creatinine 10:11:00 1.44 mg/dL 0.57-1.11 H Calcium 10:11:00 9.8 mg/dL 8.9-10.5 Sodium 10:11:00 144 mEq/L 135-144 Potassium 10:11:00 4.4 mEq/L 3.5-5.2 Chloride 10:11:00 110 mEq/L 99-111 CO2 10:11:00 25 mEq/L 22-31 Albumin 10:11:00 4.0 g/dL 3.4-4.8 Bilirubin Total 10:11:00 0.5 mg/dL 0.2-1.2 Alkaline Phosphatase 10:11:00 59 U/L 40-150 Protein 10:11:00 6.9 g/dL 6.2-8.1 ALT (SGPT) 10:11:00 11 U/L 0-55 AST (SGOT) 10:11:00 17 U/L 5-34 Anion Gap 10:11:00 9 3-20 Globulin 10:11:00 2.9 g/dL 1.8-4.0 Testing performed at [facility] [address] [address] Custom Framing Specialist Mello Ramirez MD Panel Description: EGFR-[facility] eGFR 10:11:00 35 mL/min >60 A Multiply eGFR results by 1.21 for race.Testing performed at [facility] [address] [address] Custom Framing Specialist Mello Ramirez MD Vital Signs Date / Time: Height Weight Pulse Rate Blood Pressure Temperature /10:15:00 64.00 in 134.00 lbs 73 /min 106/56 mm[Hg] 97.5 F Procedures Procedure Date Unknown Encounters Encounter Location Date Patient Visit [facility] Rheum Patient Visit [facility] Patient Visit [facility] Patient Visit [facility] Patient Visit [facility] Endo Patient Visit [facility] Patient Visit [facility] Patient Visit [facility] Patient Visit [facility] Patient Visit [facility] Patient Visit [facility] Patient [facility] Patient Visit [facility] Patient Visit [facility] Patient Visit [facility] Rhe[facility] Patient Visit [facility] Patient Visit [facility] Patient Visit [facility] Patient Visit [facility] Patient Visit [facility] Patient Visit [facility] Patient Visit [facility] Patient Visit [facility] Patient Visit [facility] Patient Visit [facility] Patient Visit [facility] Patient Visit [facility] Advance Directives Directive Effective Date Unknown
--- OUTSIDE RECORDS SUMMARY | 2016-12-04 10:31 | XMS REPORT | Referral Summary ---
Author Author [facility] Organization [facility] Address Unknown Phone Unavailable Care Team Providers Care Survey Associate Name Role Phone El Yanez Primary Care Physician [phone] Encounter VC Date(s): 01/16/16 - 01/16/16 [facility] [address] [place], [place] [address] Discharge Diagnosis: Rheumatoid arthritis Discharge Diagnosis: [...] Daily, # 270 tabs, 3 Refill(s), Pharmacy: [facility], 3 tabs Oral Daily Start Date: [...] # 10 mL, 1 Refill(s), Pharmacy: [facility], 0.9 mL SubCutaneous qWeek,Instr:ON TUESDAYS. PLEASE DISPENSE LARGE... Start Date: 07/18/15 Status: Ordered miconazole 50 mg buccal tablet 50 mg 1 tabs, Buccal, QID, # 40 tabs, 0 Refill(s), Pharmacy: [facility], 1 tabs Buccal QID Start Date: 06/16/15 Status: Ordered oxyCODONE-acetaminophen 7.5 mg-325 mg oral tablet 1 tabs, Oral, q6hr, as needed for pain, # 120 tabs, 0 Refill(s) Start Date: 06/16/15 Status: Ordered potassium chloride 20 mEq oral tablet, extended release See Instructions, TAKE 1 TABLET BY MOUTH DAILY WITH FUROSEMIDE, # 30 tabs, 2 Refill(s), eRx: [facility], TAKE 1 TABLET BY MOUTH DAILY [...]
--- OUTSIDE RECORDS SUMMARY | 2016-12-04 10:31 | XMS REPORT | CCD ---
Author Author ROBY AMADOR Organization Unknown Address [address], [place] [id number] Phone 0 Care Team Providers Care Education Instructor Name Role Phone MARCIAPerlitaLATASHA Attending Physician [phone] Vital Signs Unknown or Not Available. Allergies Allergy Code Allergy Type Reaction Status CONTRAST MEDIA, IODINE RELATED 0 Drug allergy LOW GFR, NEPHRO DRMelissa STATES NEVER TO HAVE CONTRAST DYE Active IODINE-CONTAINING 0 Drug allergy LOW GFR- NEPHRO STATES NEVER TO HAVE CONTRAST DYE Active Procedures Unknown or Not Available. History of Immunizations Immunization Code Date pneumococcal, unspecified formulation 109 05/05/2011 Influenza, seasonal, injectable 141 05/06 Problems Problem Code Start Date Resolved Date Status CHRONIC KIDNEY DISEASE [id number] Active Results Unknown or Not Available. Active Medications Medication Code Dose Units Frequency Route Modification Start Date/Time Lasix 20MG Oral Tablet 914104 20 MILLIGRAMS DAILY ORAL 10/06/2012 09:17 Prescription Detail 20 MILLIGRAMS ORAL DAILY Levothyroxine Sodium 0.137MG Oral Tablet 317608 0.137 MILLIGRAMS DAILY ORAL 10/06/2012 09:17 Prescription Detail 0.137 MILLIGRAMS ORAL DAILY Lutein 20MG Oral Tablet [id number] 20 MILLIGRAMS DAILY ORAL 10/06/2012 09:17 Prescription Detail 20 MILLIGRAMS ORAL DAILY Refresh Ophthalmic Solution [id number] 1 EACH NEEDED OPTHALMIC 10/06/2012 09:17 Prescription Detail 1 EACH OPTHALMIC NEEDED Calcitrate 950MG Oral Tablet [id number] 950 MILLIGRAMS THREE TIMES DAILY ORAL 10/06/2012 09:17 Prescription Detail 950 MILLIGRAMS ORAL THREE TIMES DAILY Crestor 10MG Oral Tablet [id number] 10 MILLIGRAMS AT BEDTIME ORAL 10/06/2012 09:17 Prescription Detail 10 MILLIGRAMS ORAL AT BEDTIME Methotrexate Sodium 25MG/ML Injection Solution [id number] 0.9 EACH WEEKLY INJECTION 10/06/2012 09:17 Prescription Detail 0.9 EACH INJECTION WEEKLY Optive 0.5%-0.9% Ophthalmic Solution [id number] 1 EACH TWICE A DAY OPTHALMIC 10/06/2012 09:17 Prescription Detail 1 EACH OPTHALMIC TWICE A DAY Tylenol Extra Strength 500MG Oral Capsule [id number] 500 MILLIGRAMS NEEDED ORAL 10/06/2012 09:17 Prescription Detail 500 MILLIGRAMS ORAL NEEDED Vitamin C 500MG Oral Tablet [id number] 500 MILLIGRAMS DAILY ORAL 10/06/2012 09:17 Prescription Detail 500 MILLIGRAMS ORAL DAILY Diltiazem HCl 120MG Oral Tablet [id number] 120 MILLIGRAMS DAILY ORAL 10/06/2012 09:17 Prescription Detail 120 MILLIGRAMS ORAL DAILY Medications Administered During Visit Unknown or Not Available. Encounters Encounter Diagnosis Diagnosis Code Start Date Encounter for screening mammogram for malignant neoplasm of breast Z1231 05/06/2015 Social History Smoking Status Code Start Date End Date Never smoker [id number] Patient Decision Aids Unknown or Not Available. Discharge Instructions You were admitted to [facility] on 05/06/2015 with a principal diagnosis of Encounter for screening mammogram for malignant neoplasm of breast. You were discharged from [facility] on 05/06/2015. Should you have any questions prior to discharge, please contact a member of your healthcare team. If you have left the hospital and have any questions, please contact your primary care physician. Chief Complaint and Reason For Visit Chief Complaint Date of Onset MAMMO Function Status Unknown or Not Available. Plan of Care Unknown or Not Available. Referral/Transition of Care Unknown or Not Available.
--- OUTSIDE RECORDS SUMMARY | 2016-12-04 10:31 | XMS REPORT | Continuity of Care Document ---
Author Author Renee Mendes [facility] Address [address] [place] [address] Phone Care Team Providers Care Nurse Supervisor Name Role Phone WillJaya PP Payers Payer name Insurance type Covered republican ID Authorization(s) Unknown Problems Condition Effective Dates (start - stop) Clinical Status Rheumatoid Arthritis - *Controlled Osteoarthritis, Generalized - *Stable Therapeutic Drug Monitoring - *Chronic Rheumatoid Arthritis - *Controlled Osteoarthritis, Generalized - *Stable Therapeutic Drug Monitoring - Chronic Lumbago - *Worse Rheumatoid arthritis - *Chronic Unspecified acquired hypothyroidism - *Chronic Other and unspecified hyperlipidemia - *Chronic Unspecified essential hypertension - *Chronic Depressive disorder, not elsewhere classified - *Chronic Malignant neoplasm of breast (female), unspecified site - * Chronic Other malaise and fatigue - *Chronic Esophageal reflux - *Chronic Shortness of breath - *Chronic Chronic airway obstruction, not elsewhere classified - 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 - *Chronic Rheumatoid Arthritis - *Chronic Osteoarthritis, Generalized - *Chronic Therapeutic Drug Monitoring - *Chronic Pain in limb - *Acute Anxiety state, unspecified - *Chronic Esophageal reflux - *Chronic 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 - *Acute Esophageal reflux - *Chronic Anxiety state, unspecified - *Chronic - Pain in limb - *Chronic GLUCOCORTICOID DEFICIENT - *Chronic Open wound of foot except toe(s) alone, complicated - *Acute HX-CIRCULATORY DIS NOS - MAL DIDI RECTOSIGMOID [...] Drug Monitoring - Chronic Depression - Chronic Cough - *Acute Acute bronchitis - *Acute [...] Dosage Effective Dates (start - stop) Status Tylenol Extra Strength 500 mg tablet take 1 tablet tid - Active Crestor 10 mg tablet take [...] 120 mg tablet as directed - Active Advair Diskus 250 mcg-50 mcg/dose powder for inhalation inhale 1 puff by inhalation route 2 times every day in the morning and evening approximately 12 hours apart 0 - Active Lasix 20 mg tablet take 1 tablet (20MG) by oral route every day 20 MG - Active Levothroid 137 mcg tablet take 1 tablet (137MCG) by oral route every day 137 MCG - Active as directed - Active folic acid 1 mg tablet TAKE 3 TABLETS DAILY - Active potassium chloride ER 20 mEq tablet,extended release(part/cryst) take 1 by Oral route every day 0 - Active methotrexate sodium 25 mg/mL Injection INJECT 0.9 ML'S INTRAMUSCULARLY ONCE WEEKLY. - Active Immunizations Vaccine Date Status Comments Tdap completed - Completed reason: Previously Given pneumo (2 yrs or older) (PPV23) completed - Completed reason: Previously Given flu (split) (3 yrs or older) completed - Completed reason: Previously given Influenza, H1N1, IM completed - Completed reason: Previously Given flu (split) (3 yrs or older) completed flu (split) (3 yrs or older) completed - Completed reason: other registry Zoster completed - Completed reason: previously given Td (adult) completed - Completed reason: Previously Given Results Test Name Date and Time Measure Units Reference Range Abnormal Flag Comments Panel Description: CBC WBC 11:25:00 5.4 K/uL 4.8-10.8 RBC 11:25:00 4.13 M/uL 4.00-5.20 HGB 11:25:00 12.0 g/dl 12.0-16.0 HCT 11:25:00 38.2 % 37.0-47.0 MCV 11:25:00 92.5 fL 82.0-99.0 MCH 11:25:00 29.1 pg 27.0-32.0 MCHC 11:25:00 31.4 g/dL 32.0-36.0 L RDW 11:25:00 14.8 % 11.5-14.5 H MPV 11:25:00 10.7 fL 8.8-14.8 Platelet Count 11:25:00 269 K/uL 150-400 Immature Granulocytes 11:25:00 0.2 % 0.0-1.0 Absolute Neutrophils 11:25:00 2.86 THOUS 1.90-7.00 Absolute Lymphocytes 11:25:00 1.32 THOUS 0.80-3.30 Absolute Monocytes 11:25:00 0.95 THOUS 0.30-1.00 Absolute Eosinophils 11:25:00 0.22 THOUS 0.00-0.50 Absolute Basophils 11:25:00 0.08 THOUS 0.00-0.20 Neutrophils 11:25:00 53 % 51-75 Lymphocytes 11:25:00 24 % 20-46 Monocytes 11:25:00 18 % 4-11 H Eosinophils 11:25:00 4 % 0-4 Basophils 11:25:00 2 % 0-2 Testing performed at [facility] [address] [place] [address] Polishing Wheel Repairer Mello Ramirez MD Panel Description: Chemistry Profile Glucose 11:25:00 87 mg/dL 70-99 BUN 11:25:00 28 mg/dL 10-20 H Creatinine 11:25:00 1.65 mg/dL 0.57-1.11 H Calcium 11:25:00 9.9 mg/dL 8.9-10.5 Sodium 11:25:00 144 mEq/L 135-144 Potassium 11:25:00 4.5 mEq/L 3.5-5.2 Chloride 11:25:00 108 mEq/L 99-111 CO2 11:25:00 26 mEq/L 22-31 Albumin 11:25:00 4.3 g/dL 3.4-4.8 Bilirubin Total 11:25:00 0.5 mg/dL 0.2-1.2 Alkaline Phosphatase 11:25:00 58 U/L 40-150 Protein 11:25:00 6.9 g/dL 6.2-8.1 ALT (SGPT) 11:25:00 13 U/L 0-55 AST (SGOT) 11:25:00 26 U/L 5-34 Anion Gap 11:25:00 10 3-20 Globulin 11:25:00 2.6 g/dL 1.8-4.0 Testing performed at [facility] [address] [place] [address] Polishing Wheel Repairer Mello Ramirez MD Panel Description: EGFR-[facility] eGFR 11:25:00 30 mL/min >60 A Multiply eGFR results by 1.21 for race.Testing performed at [facility] [address] [address] Polishing Wheel Repairer Mello Ramirez MD Vital Signs Date / Time: Height Weight Pulse Rate Blood Pressure Temperature /10:25:00 64.00 in 136.00 lbs 68 /min 102/62 mm[Hg] 97.9 F Procedures Procedure Date Unknown Encounters Encounter Location Date Patient Visit [facility] [place] Rhe[place] Patient Visit [facility] Patient Visit [facility] Patient Visit [facility] Patient Visit [facility] Patient Visit [facility] [place] Patient Visit [facility] [place] Patient Visit [facility] [place] [facility] Patient Visit [facility] [place] [facility] Patient Visit [facility] Patient Visit [facility] Patient Visit [facility] Patient Visit [facility] Patient Visit [facility] Patient [place] Patient Visit [facility] [place] [facility] Patient Visit [facility] Patient Visit [facility] Patient Visit [facility] [place] Patient Visit [facility] [place] Patient Visit [facility] Patient Visit [facility] [place] Patient Visit [facility] Patient Visit [facility] Patient Visit [facility] Advance Directives Directive Effective Date Unknown
--- OUTSIDE RECORDS SUMMARY | 2016-12-04 10:31 | XMS REPORT | Referral Summary ---
Author Author [facility] Organization [facility] Address Unknown Phone Unavailable Care Team Providers Care Range Examiner Name Role Phone El Yanez Primary Care Physician [phone] Encounter VC Date(s): 02/08/15 - 02/08/15 [facility] [address] [place], [place] [address] Discharge Diagnosis: Middle ear effusion Discharge Diagnosis: Bilateral hearing loss Discharge Disposition: -Home or Self Care Attending Physician: Amy Saravia Admitting Physician: Amy Saravia Referring Physician: Self Referred, X Vital Signs No data available for this [...] of rectosigmoid junction(Confirmed) Mixed Active hyperlipidemia(Confi rmed) Pure Active hypercholesterolemia (Confirmed) Rheumatoid Active arthritis(Confirmed) [...] Daily, # 270 tabs, 3 Refill(s), Pharmacy: [facility], 3 tabs Oral Daily Start Date: 07/18/15 [...] 10 mL, 1 Refill(s), Pharmacy: Via [facility], 0.9 mL SubCutaneous qWeek,Instr:ON TUESDAYS. PLEASE DISPENSE LARGE... Start Date: 07/18/15 Status: Ordered miconazole 50 mg buccal tablet 50 mg 1 tabs, Buccal, QID, # 40 tabs, 0 Refill(s), Pharmacy: [facility], 1 tabs Buccal QID Start Date: 06/16/15 Status: Ordered oxyCODONE-acetaminophen 7.5 mg-325 mg oral tablet 1 tabs, Oral, q6hr, as needed for pain, # 120 tabs, 0 Refill(s) Start Date: 06/16/15 Status: Ordered potassium chloride 20 mEq oral tablet, extended release See Instructions, TAKE 1 TABLET BY MOUTH DAILY WITH FUROSEMIDE, # 30 tabs, 2 Refill(s), eRx: [facility], TAKE 1 TABLET BY MOUTH DAILY WITH [...] surgery 1970 Hysterectomy 1970 Tonsillectomy 1952 Appendectomy 1950 Lt and rt breast bx with modified Mastectomy Modified radical rt breast Ring finger pinned Rt Carpal tunnel release 1Dr. Harsha 218 inches removed Social History Social History Type Response Smoking Status Never smoker Assessment and Plan No data available for this section
--- OUTSIDE RECORDS SUMMARY | 2016-12-04 10:31 | XMS REPORT | Referral Summary ---
Author Author [facility] Organization [facility] Address Unknown Phone Unavailable Care Team Providers Care Metallurgical Specialist Name Role Phone El Yanez Primary Care Physician [phone] Encounter VC Date(s): 01/12/15 - 01/12/15 [facility] [address] [place], [place] [address] Discharge Diagnosis: Oral candidiasis Discharge Diagnosis: [...] # 10 mL, 1 Refill(s), Pharmacy: [facility], 0.9 mL SubCutaneous qWeek,Instr:ON TUESDAYS. PLEASE [...] Absolute 1.33 10*3 [0.80-3.30 10*3] (01/12/1543 AM) [place] Absolute 0.52 10*3 [0.30-1.00 10*3] (01/12/1543 AM) [...] Education Author: Rhiannon Adkins MD Date: 05/19 [facility] Medicine Yesenia Infection, Adult A yesenia [...] is what the infection is, there are yoyg-pwq-zmagarm medications that you can get. If the [...] Released: 08/29/2005 Document Revised: 10/13/2012 Document Reviewed: [facility] Patient Information 2014 [employer]. No follow up information was provided.
--- OUTSIDE RECORDS SUMMARY | 2016-12-04 10:32 | XMS REPORT ---
Author Author Mateus Mancia Organization [employer] Address Unknown Phone Unavailable Care Team Providers Care Duco Polisher Name Role Phone Mateus Mancia CP Unavailable Allergies, Adverse Reactions, Alerts Substance Reaction Event Type Latex Exam Gloves Info Not Available Drug Allergy Problems Problem Type Condition Code Onset Dates Condition Status Assessment Encounter for dental examination and cleaning without abnormal findings Z01.20 Active Medications No Known Medications Procedures Procedure Coding System Code Date LTD ORAL EVALUATION - PROBLEM FOCUS CPT-4 D0140 Jun 05, 2016 TRUDI GALEAS DENTAL PAIN-MINOR PROC CPT-4 D9110 Jun 05, 2016 INTRAORL-PERIAPICAL 1 FILM 34361 CPT-4 D0220 Jun 05, 2016 Results No Known Results Summary Purpose [employer] Submission
--- OUTSIDE RECORDS SUMMARY | 2016-12-04 10:32 | XMS REPORT | Referral Summary ---
Author Author [facility] Organization [facility] Address Unknown Phone Unavailable Care Team Providers Care Inspector Floor Name Role Phone El Yanez Primary Care Physician [phone] Encounter VC Date(s): 10/17/15 - 10/17/15 [facility] [address] [place], [place] [address] Discharge Diagnosis: Rheumatoid arthritis Discharge Diagnosis: Primary generalized (osteo)arthritis Discharge Diagnosis: Depressive disorder, not elsewhere classified Discharge Diagnosis: High risk medication use Discharge Disposition: 01-Home or Self Care Attending Physician: Rhiannon Adkins MD Admitting Physician: Rhiannon Adkins MD Vital Signs Most recent to 1 oldest [Reference Range]: Temperature Oral 36.4 degC [35.8-37.3 degC] (10/17/15 10:25 AM) Peripheral Pulse 89 bpm Rate [60-100 bpm] (10/17/15 10:25 AM) Blood Pressure 128/67 mmHg [90-140/60-90 mmHg] (10/17/15 10:25 AM) Problem List Condition Effective Dates Status [...] Mixed Active hyperlipidemia(Confi rmed) Postmenopausal bone < 10/17/15 Resolved loss(Confirmed) Pure Active hypercholesterolemia (Confirmed) Depressive [...] Daily, # 270 tabs, 3 Refill(s), Pharmacy: [facility], 3 tabs Oral Daily Start Date: [...] # 10 mL, 1 Refill(s), Pharmacy: [facility], 0.9 mL SubCutaneous qWeek,Instr:ON TUESDAYS. PLEASE DISPENSE LARGE... Start Date: 07/18/15 Status: Ordered miconazole 50 mg buccal tablet 50 mg 1 tabs, Buccal, QID, # 40 tabs, 0 Refill(s), Pharmacy: [facility], 1 tabs Buccal QID Start Date: 06/16/15 Status: Ordered oxyCODONE-acetaminophen 7.5 mg-325 mg oral tablet 1 tabs, Oral, q6hr, as needed for pain, # 120 tabs, 0 Refill(s) Start Date: 06/16/15 Status: Ordered potassium chloride 20 mEq oral tablet, extended release See Instructions, TAKE 1 TABLET BY MOUTH DAILY WITH FUROSEMIDE, # 30 tabs, 2 Refill(s), eRx: [facility], TAKE 1 TABLET BY MOUTH DAILY [...] to 1 oldest [Reference Range]: WBC [4.8-10.8 8.4 10*3/uL 10*3/uL] (10/17/15 11:12 AM) RBC [4.00-5.20] 3.81 *LOW* (10/17/15 11:12 AM) Hgb [12.0-16.0 11.2 gm/dL gm/dL] *LOW* (10/17/15 11:12 AM) Hct [37.0-47.0 %] 35.9 % *LOW* (10/17/15 11:12 AM) MCV [82.0-99.0 fL] 94.2 fL (10/17/15 11:12 AM) MCH [27.0-32.0 pg] 29.4 pg (10/17/15 11:12 AM) MCHC [32.0-36.0 31.2 gm/dL gm/dL] *LOW* (10/17/15 11:12 AM) RDW [11.5-14.5 %] 14.2 % (10/17/15 11:12 AM) Platelet [150-400 251 10*3/uL 10*3/uL] (10/17/15 11:12 AM) MPV [8.8-14.8 fL] 10.6 fL (10/17/15 11:12 AM) Immature 0.1 % Granulocytes (10/17/15 11:12 AM) [0.0-1.0 %] Neutrophils [51-75 66 % %] (10/17/15 11:12 AM) Lymphocytes [20-46 17 % %] *LOW* (10/17/15 11:12 AM) Monocytes [4-11 %] 12 % *HI* (10/17/15 11:12 AM) Eosinophils [0-4 %] 5 % *HI* (10/17/15 11:12 AM) Basophils [0-2 %] 0 % (10/17/15 11:12 AM) Neutro Absolute 5.56 10*3 [1.90-7.00 10*3] (10/17/15 11:12 AM) Lymph Absolute 1.46 10*3 [0.80-3.30 10*3] (10/17/15 11:12 AM) [place] Absolute 1.01 10*3 [0.30-1.00 10*3] *HI* (10/17/15 11:12 AM) Eos Absolute 0.38 10*3 [0.00-0.50 10*3] (10/17/15 11:12 AM) Baso Absolute 0.03 10*3 [0.00-0.20 10*3] (10/17/15 11:12 AM) Chemistry Most recent to 1 oldest [Reference Range]: Sodium Lvl [135-144 146 mEq/L mEq/L] *HI* (10/17/15 11:12 AM) Potassium Lvl 4.7 mEq/L [3.5-5.2 mEq/L] (10/17/15 11:12 AM) Chloride [99-111 114 mEq/L mEq/L] *HI* (10/17/15 11:12 AM) CO2 [22-31 mEq/L] 24 mEq/L (10/17/15 11:12 AM) AGAP [3-20] 8 (10/17/15 11:12 AM) BUN [10-20 mg/dL] 29 mg/dL *HI* (10/17/15 11:12 AM) Glucose Lvl [70-99 75 mg/dL mg/dL] (10/17/15 11:12 AM) Creatinine Lvl 1.35 mg/dL [0.57-1.11 mg/dL] *HI* (10/17/15 11:12 AM) eGFR [>60 mL/min] 37 mL/min 1 *ABN* (10/17/15 11:12 AM) Calcium Lvl 9.4 mg/dL [8.9-10.5 mg/dL] (10/17/15 11:12 AM) Albumin Lvl [3.4-4.8 3.9 gm/dL gm/dL] (10/17/15 11:12 AM) Total Protein 6.6 gm/dL [6.2-8.1 gm/dL] (10/17/15 11:12 AM) Globulin [1.8-4.0 2.7 gm/dL gm/dL] (10/17/15 11:12 AM) ALT [0-55 U/L] 11 U/L (10/17/15 11:12 AM) AST [5-34 U/L] 16 U/L (10/17/15 11:12 AM) Alk Phos [40-150 79 U/L U/L] (10/17/15 11:12 AM) Bili Total [0.2-1.2 0.4 mg/dL mg/dL] (10/17/15 11:12 AM) 1Result Comment: Multiply eGFR results by [...] TAMIKA BSO - Total abdominal hysterectomy and 1973 bilateral salpingo-oophorectomy Back surgery 1970 Hysterectomy 1970 Tonsillectomy 1952 Appendectomy 1950 Lt and rt breast bx with modified Mastectomy Modified radical rt breast Ring finger pinned Rt Carpal tunnel release 1Dr. Harsha 218 inches removed Social History Social History Type Response Smoking Status Never smoker Assessment and Plan Extracted from: Title: Office Visit Note Author: Rhiannon Adkins MD Date: 10/17/15 Assessment/Plan 1.Rheumatoid arthritis 2.Primary generalized (osteo)arthritis 3.Depressive disorder, not elsewhere classified 4.High risk medication use
--- OUTSIDE RECORDS SUMMARY | 2016-12-04 10:32 | XMS REPORT | Referral Summary ---
Author Author [facility] Organization [facility] Address Unknown Phone Unavailable Care Team Providers Care Data Center Consultant Name Role Phone El Yanez Primary Care Physician [phone] Encounter VC Date(s): 01/12/15 - 01/12/15 [facility] [address] [place], [place] [address] Discharge Diagnosis: Oral candidiasis Discharge Diagnosis: Rheumatoid [...] Daily, # 270 tabs, 3 Refill(s), Pharmacy: [facility], 3 tabs Oral Daily [...] # 10 mL, 1 Refill(s), Pharmacy: Via [facility], 0.9 mL SubCutaneous qWeek,Instr:ON TUESDAYS. PLEASE DISPENSE LARGE... Start Date: 07/18/15 Status: Ordered miconazole 50 mg buccal tablet 50 mg 1 tabs, Buccal, QID, # 40 tabs, 0 Refill(s), Pharmacy: [facility], 1 tabs Buccal QID [...] AM) RDW [11.5-14.5 %] 16.3 % *HI* (01/12/15:43 AM) Platelet [150-400 184 10*3/uL 10*3/uL] (01/12/1543 AM) MPV [8.8-14.8 fL] 10.3 fL (01/12/1543 AM) Immature 0.1 % Granulocytes (01/12/1543 ) [0.0-1.0 %] Neutrophils [51-75 71 % %] (01/12/1543 AM) Lymphocytes [20-46 19 % %] *LOW* (01/12/15 AM) Monocytes [4-11 %] 7 % (01/12/15 AM) Eosinophils [0-4 %] 2 % (01/12/15 AM) Basophils [0-2 %] 0 % (01/12/1543 AM) Neutro Absolute 5.01 10*3 [1.90-7.00 10*3] (01/12/1543 AM) Lymph Absolute 1.33 10*3 [0.80-3.30 10*3] (01/12/15:43 AM) [place] Absolute 0.52 10*3 [0.30-1.00 10*3] (01/12/15:43 AM) Eos Absolute 0.14 10*3 [0.00-0.50 10*3] (01/12/15:43 AM) Baso Absolute 0.02 10*3 [0.00-0.20 10*3] (01/12/15:43 AM) Chemistry Most recent to 1 oldest [Reference Range]: Sodium Lvl [135-144 145 mEq/L mEq/L] *HI* (01/12/1543 AM) Potassium Lvl 4.2 mEq/L [3.5-5.2 mEq/L] (01/12/1543 AM) Chloride [99-111 110 mEq/L mEq/L] (01/12/15:43 AM) CO2 [22-31 mEq/L] 23 mEq/L (01/12/1543 AM) AGAP [3-20] 12 (6/10/15 11:43 AM) BUN [10-20 mg/dL] 20 mg/dL (01/12/15:43 AM) Glucose Lvl [70-99 84 mg/dL mg/dL] (01/12/15:43 AM) Creatinine Lvl 1.71 mg/dL [0.57-1.11 mg/dL] *HI* (01/12/15:43 AM) eGFR [>60 mL/min] 28 mL/min 1 *ABN* (01/12/15:43 AM) Calcium Lvl 9.3 mg/dL [8.9-10.5 mg/dL] (01/12/15:43 AM) Albumin Lvl [3.4-4.8 4.0 gm/dL gm/dL] (01/12/15:43 AM) Total Protein 6.5 gm/dL [6.2-8.1 gm/dL] (01/12/15:43 AM) Globulin [1.8-4.0 2.5 gm/dL gm/dL] (01/12/15:43 AM) ALT [0-55 U/L] 7 U/L (01/12/15:43 AM) AST [5-34 U/L] 18 U/L (01/12/15:43 AM) Alk Phos [40-150 57 U/L U/L] (01/12/15:43 AM) Bili Total [0.2-1.2 0.4 mg/dL mg/dL] [...] toxoids (Td) adult/adol 07/05/06 zoster vaccine live 2/1/08 1Result Comment: [07/18/2015] PCP OFFICE 2Result Comment: [...] Education Author: Rhiannon Adkins MD Date: 05/19 Family Medicine Yesenia Infection, Adult A yesenia infection [...] is what the infection is, there are zsfd-nrf-ltcaqlc medications that you can get. If the [...] Released: 08/29/2005 Document Revised: 10/13/2012 Document Reviewed: [employer] Patient Information 2014 [employer]. No follow up information was provided.
--- OUTSIDE RECORDS SUMMARY | 2016-12-04 10:32 | XMS REPORT | Referral Summary ---
Author Author [facility] Organization [facility] Address Unknown Phone Unavailable Care Team Providers Care Forest Resource Specialist Name Role Phone Conradsofya El Primary Care Physician [phone] Encounter VC Date(s): 07/18/15 - 07/18/15 [facility] [address] [place], [place] [address] Discharge Diagnosis: Primary generalized (osteo)arthritis Discharge Diagnosis: Shoulder pain Discharge Diagnosis: High risk medication use Discharge Diagnosis: Glucocorticoid deficiency Discharge Diagnosis: Rheumatoid arthritis Discharge Disposition: 01-Home or Self Care Attending Physician: Rhiannon Adkins MD Admitting Physician: Rhiannon Adkins MD Vital Signs Most recent to 1 oldest [Reference Range]: Temperature Oral 36.3 degC [35.8-37.3 degC] (07/18/15 9:54 AM) Peripheral Pulse 70 bpm Rate [60-100 bpm] (07/18/15 9:54 AM) Blood Pressure 104/50 mmHg [90-140/60-90 mmHg] (07/18/15 9:54 AM) Problem List Condition Effective Dates Status [...] Daily, # 270 tabs, 3 Refill(s), Pharmacy: [facility], 3 tabs Oral Daily Start Date: [...] # 10 mL, 1 Refill(s), Pharmacy: [facility], 0.9 mL SubCutaneous qWeek,Instr:ON TUESDAYS. PLEASE DISPENSE LARGE... Start Date: 07/18/15 Status: Ordered miconazole 50 mg buccal tablet 50 mg 1 tabs, Buccal, QID, # 40 tabs, 0 Refill(s), Pharmacy: [facility], 1 tabs Buccal QID Start Date: 06/16/15 Status: Ordered oxyCODONE-acetaminophen 7.5 mg-325 mg oral tablet 1 tabs, Oral, q6hr, as needed for pain, # 120 tabs, 0 Refill(s) Start Date: 06/16/15 Status: Ordered potassium chloride 20 mEq oral tablet, extended release See Instructions, TAKE 1 TABLET BY MOUTH DAILY WITH FUROSEMIDE, # 30 tabs, 2 Refill(s), eRx: [facility], TAKE 1 TABLET BY MOUTH DAILY [...] to 1 oldest [Reference Range]: WBC [4.8-10.8 5.4 10*3/uL 10*3/uL] (07/18/15 9:46 AM) RBC [4.00-5.20] 3.81 *LOW* (07/18/15 9:46 AM) Hgb [12.0-16.0 11.4 gm/dL gm/dL] *LOW* (07/18/15 9:46 AM) Hct [37.0-47.0 %] 35.6 % *LOW* (07/18/15 9:46 AM) MCV [82.0-99.0 fL] 93.4 fL (07/18/15 9:46 AM) MCH [27.0-32.0 pg] 29.9 pg (07/18/15 9:46 AM) MCHC [32.0-36.0 32.0 gm/dL gm/dL] (07/18/15 9:46 AM) RDW [11.5-14.5 %] 14.6 % *HI* (07/18/15 9:46 AM) Platelet [150-400 222 10*3/uL 10*3/uL] (07/18/15 9:46 AM) MPV [8.8-14.8 fL] 10.5 fL (07/18/15 9:46 AM) Immature 0.2 % Granulocytes (07/18/15 9:46 AM) [0.0-1.0 %] Neutrophils [51-75 60 % %] (07/18/15 9:46 AM) Lymphocytes [20-46 21 % %] (07/18/15 9:46 AM) Monocytes [4-11 %] 14 % *HI* (07/18/15 9:46 AM) Eosinophils [0-4 %] 4 % (07/18/15 9:46 AM) Basophils [0-2 %] 1 % (07/18/15 9:46 AM) Neutro Absolute 3.22 10*3 [1.90-7.00 10*3] (07/18/15 9:46 AM) Lymph Absolute 1.13 10*3 [0.80-3.30 10*3] (07/18/15 9:46 AM) [place] Absolute 0.76 10*3 [0.30-1.00 10*3] (07/18/15 9:46 AM) Eos Absolute 0.23 10*3 [0.00-0.50 10*3] (07/18/15 9:46 AM) Baso Absolute 0.04 10*3 [0.00-0.20 10*3] (07/18/15 9:46 AM) Chemistry Most recent to 1 oldest [Reference Range]: Sodium Lvl [135-144 142 mEq/L mEq/L] (07/18/15 9:46 AM) Potassium Lvl 4.8 mEq/L [3.5-5.2 mEq/L] (07/18/15 9:46 AM) Chloride [99-111 110 mEq/L mEq/L] (07/18/15 9:46 AM) CO2 [22-31 mEq/L] 25 mEq/L (07/18/15 9:46 AM) AGAP [3-20] 7 (07/18/15 9:46 AM) BUN [10-20 mg/dL] 24 mg/dL *HI* (07/18/15 9:46 AM) Glucose Lvl [70-99 85 mg/dL mg/dL] (07/18/15 9:46 AM) Creatinine Lvl 1.38 mg/dL [0.57-1.11 mg/dL] *HI* (07/18/15 9:46 AM) eGFR [>60 mL/min] 36 mL/min 1 *ABN* (07/18/15 9:46 AM) Calcium Lvl 9.5 mg/dL [8.9-10.5 mg/dL] (07/18/15 9:46 AM) Albumin Lvl [3.4-4.8 3.8 gm/dL gm/dL] (07/18/15 9:46 AM) Total Protein 6.6 gm/dL [6.2-8.1 gm/dL] (07/18/15 9:46 AM) Globulin [1.8-4.0 2.8 gm/dL gm/dL] (07/18/15 9:46 AM) ALT [0-55 U/L] 6 U/L (07/18/15 9:46 AM) AST [5-34 U/L] 16 U/L (07/18/15 9:46 AM) Alk Phos [40-150 70 U/L U/L] (07/18/15 9:46 AM) Bili Total [0.2-1.2 0.4 mg/dL mg/dL] (07/18/15 9:46 AM) 1Result Comment: Multiply eGFR results by [...] Procedures Procedure Date Related Diagnosis Body Site Arthrocentesis, aspiration and/or injection, 07/18/15 major joint or bursa (eg, shoulder, hip, knee, subacromial bursa); without ultrasound guidance Left hip hemiarthroplasty dislocation - 02/04/11 reduction [...]
--- OUTSIDE RECORDS SUMMARY | 2016-12-04 10:32 | XMS REPORT | Referral Summary ---
Author Author [facility] Organization [facility] Address Unknown Phone Unavailable Care Team Providers Care Paraprofessional Education Assistant Name Role Phone El Yanez Primary Care Physician [phone] Encounter VC Date(s): 01/12/15 - 01/12/15 [facility] [address] [place], [place] [address] Discharge Diagnosis: Oral candidiasis Discharge Diagnosis: Rheumatoid [...] # 10 mL, 1 Refill(s), Pharmacy: [facility], 0.9 mL SubCutaneous qWeek,Instr:ON [...] Absolute 1.33 10*3 [0.80-3.30 10*3] (01/12/1543 AM) [place] Absolute 0.52 10*3 [0.30-1.00 10*3] (01/12/1543 AM) [...] Education Author: Rhiannon Adkins MD Date: 05/19 [facility] Medicine Yesenia Infection, Adult A yesenia [...] is what the infection is, there are otmn-pil-igmygtu medications that you can get. If the [...] Released: 08/29/2005 Document Revised: 10/13/2012 Document Reviewed: [facility] Patient Information 2014 [employer]. No follow up information was provided.
--- OUTSIDE RECORDS SUMMARY | 2016-12-04 10:32 | XMS REPORT | Referral Summary ---
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 Discharge Diagnosis: Left shoulder pain Discharge Diagnosis: Rheumatoid arthritis Discharge Diagnosis: High risk medication use Discharge Disposition: Home or Self Care Attending Physician: Rhiannon Adkins MD Admitting Physician: Rhiannon Adkins MD Vital Signs Most recent to 1 oldest [Reference Range]: Temperature Oral 36.5 degC [35.8-37.3 degC] (10/13/14 9:48 AM) Peripheral Pulse 81 bpm Rate [60-100 bpm] (10/13/14 9:48 AM) Blood Pressure 103/56 mmHg [90-140/60-90 mmHg] (10/13/14 9:48 AM) Problem List Condition Effective Dates Status Health Status Informant Generalized Active osteoarthritis (disorder)(Confirmed ) High risk medication Active use(Confirmed) Essential Active hypertension (disorder)(Confirmed ) 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 (disorder)(Confirmed ) Hypothyroidism Active (disorder)(Confirmed ) Malignant neoplasm Active of female breast (disorder)(Confirmed ) Rheumatoid arthritis Active (disorder)(Confirmed ) Allergies, Adverse Reactions, Alerts Substance Reaction Severity Status aspirin Dizziness Active clindamycin Active EPINEPHrine Active omeprazole Dizziness Active vancomycin Active Medications Calcium 600+D 1 tabs, Oral, Daily, 0 Refill(s) Start Date: 04/12/14 Status: Ordered diltiazem 120 mg oral tablet 1 tabs, Oral, 0 Refill(s) Start Date: 04/12/14 Status: Ordered folic acid 1 mg oral tablet 3 tabs, Oral, Daily, 0 Refill(s) Start Date: 04/12/14 Status: Ordered Lasix 20 mg oral tablet 1 tabs, Oral, Daily, # 90 tabs, 0 Refill(s) Start Date: 04/12/14 Status: Ordered levothyroxine 137 mcg (0.137 mg) oral tablet 1 tabs, Oral, Daily, # 90 tabs, 0 Refill(s) Start Date: 04/12/14 Status: Ordered Lutein 6 mg oral capsule 1 caps, Oral, Daily, # 30 caps, 0 Refill(s) Start Date: 04/12/14 Status: Ordered methotrexate 25 mg/mL injectable solution 0.9 mL, SubCutaneous, qWeek, ON TUESDAYS. PLEASE DISPENSE LARGE VIAL, PT CANNOT USE SMALL VIALS D/T HAND DEXERITY, # 10 mL, 1 Refill(s), Pharmacy: [facility], 0.9 mL SubCutaneous qWeek,Instr:ON TUESDAYS. PLEASE DISPENSE LARGE VIAL, P... Special Instructions: ON TUESDAYS. PLEASE DISPENSE LARGE VIAL, PT CANNOT USE SMALL VIALS D/T HAND DEXERITY Start Date: 04/14/14 Status: Ordered oxyCODONE-acetaminophen 7.5 mg-325 mg oral tablet 1/2-1 tab, Oral, q6hr, # 50 tabs, 0 Refill(s) Start Date: 10/13/14 Status: Ordered potassium chloride 20 mEq oral tablet, extended release See Instructions, TAKE 1 TABLET BY MOUTH DAILY WITH FUROSEMIDE, # 30 tabs, 2 Refill(s), eRx: [facility], TAKE 1 TABLET BY MOUTH DAILY WITH FUROSEMIDE Special Instructions: TAKE 1 TABLET BY MOUTH DAILY WITH FUROSEMIDE Start Date: 04/26/14 Status: Ordered Tylenol Extra Strength 500 mg, Oral, TID, 0 Refill(s) Start Date: 04/12/14 Status: Ordered Vitamin C 500 mg oral tablet 1 tabs, Oral, Daily, # 90 tabs, 0 Refill(s) Start Date: 04/12/14 Status: Ordered Vitamin D3 1000 intl units oral tablet 1 tabs, Oral, Daily, # 30 tabs, 0 Refill(s) Start Date: 04/12/14 Status: Ordered Results Hematology Most recent to 1 oldest [Reference Range]: WBC [4.8-10.8 K/uL] 4.3 K/uL *LOW* (3/11/15 11:43 AM) RBC [4.00-5.20 M/uL] 3.76 M/uL *LOW* (10/13/1443 AM) Hgb [12.0-16.0 10.8 gm/dL gm/dL] *LOW* (10/13/14:43 AM) Hct [37.0-47.0 %] 34.5 % *LOW* (10/13/1443 AM) MCV [82.0-99.0 fL] 91.8 fL (10/13/1443 AM) MCH [27.0-32.0 pg] 28.7 pg (10/13/14 AM) MCHC [32.0-36.0 31.3 gm/dL gm/dL] *LOW* (10/13/1443 AM) RDW [11.5-14.5 %] 14.8 % *HI* (10/13/14 AM) Platelet [150-400 285 K/uL K/uL] (10/13/1443 AM) MPV [8.8-14.8 fL] 10.2 fL (10/13/14:43 AM) Immature 0.2 % Granulocytes (10/13/14 AM) [0.0-1.0 %] Neutrophils [51-75 50 % %] *LOW* (10/13/1443 AM) Lymphocytes [20-46 30 % %] (10/13/14 AM) Monocytes [4-11 %] 16 % *HI* (10/13/1443 AM) Eosinophils [0-4 %] 3 % (10/13/14:43 AM) Basophils [0-2 %] 1 % (10/13/1443 AM) Neutro Absolute 2.16 THOUS [1.90-7.00 THOUS] (10/13/1443 AM) Lymph Absolute 1.29 THOUS [0.80-3.30 THOUS] (10/13/14:43 AM) [place] Absolute 0.69 THOUS [0.30-1.00 THOUS] (10/13/1443 AM) Eos Absolute 0.13 THOUS [0.00-0.50 THOUS] (10/13/14:43 AM) Baso Absolute 0.05 THOUS [0.00-0.20 THOUS] (10/13/14 AM) Chemistry Most recent to 1 oldest [Reference Range]: Sodium Lvl [135-144 146 mEq/L mEq/L] *HI* (10/13/1443 AM) Potassium Lvl 4.4 mEq/L [3.5-5.2 mEq/L] (10/13/1443 AM) Chloride [99-111 109 mEq/L mEq/L] (10/13/1443 AM) CO2 [22-31 mEq/L] 26 mEq/L (10/13/14 AM) AGAP [3-20] 11 (10/13/1443 AM) BUN [10-20 mg/dL] 26 mg/dL *HI* (10/13/1443 AM) Glucose Lvl [70-99 85 mg/dL mg/dL] (10/13/14 AM) Creatinine Lvl 1.48 mg/dL [0.57-1.11 mg/dL] *HI* (10/13/1443 AM) eGFR [>60 mL/min] 34 mL/min 1 *ABN* (10/13/14 AM) Calcium Lvl 9.3 mg/dL [8.9-10.5 mg/dL] (10/13/1443 AM) Albumin Lvl [3.4-4.8 3.8 gm/dL gm/dL] (10/13/1443 AM) Total Protein 6.3 gm/dL [6.2-8.1 gm/dL] (10/13/1443 AM) Globulin [1.8-4.0 2.5 gm/dL gm/dL] (10/13/14 AM) ALT [0-55 unit/L] 8 unit/L (10/13/1443 AM) AST [5-34 unit/L] 18 unit/L (10/13/1443 AM) Alk Phos [40-150 63 unit/L unit/L] (3/11/15 11:43 AM) Bili Total [0.2-1.2 0.4 mg/dL mg/dL] (10/13/14 11:43 AM) 1Result Comment: Multiply eGFR results by 1.21 for race. Immunizations Vaccine Date Refusal Reason influenza virus vaccine, H1N1, inactivat 07/21/09 influenza virus vaccine, live 05/02/11 influenza virus vaccine, live 04/14/09 influenza virus vaccine, live 05/16/07 tetanus-diphth toxoids (Td) adult/adol 07/05/06 zoster vaccine live 09/05/07 Procedures No data available for this section Social History Social History Type Response Smoking Status Never smoker Assessment and Plan Extracted from: Title: Ambulatory Patient Education Author: Rhiannon Adkins MD Date: 06/19 No follow up information was provided. Extracted from: Title: Office Visit Note Author: Rhiannon Adkins MD Date: 10/13/14 Assessment/Plan 1.Rheumatoid arthritis 2.Left shoulder pain 3.Degenerative joint disease involving multiple joints 4.High risk medication use Orders: oxyCODONE-acetaminophen, 1/2-1 tab, Oral, q6hr, # 50 tabs, 0 Refill(s)
--- OUTSIDE RECORDS SUMMARY | 2016-12-04 10:32 | XMS REPORT | Referral Summary ---
Author Author [facility] Organization [facility] Address Unknown Phone Unavailable Care Team Providers Care Mold Carrier Name Role Phone El Yanez Primary Care Physician [phone] Encounter VC Date(s): 01/16/16 - 01/16/16 [facility] [address] [place], [place] [address] Discharge Diagnosis: Rheumatoid arthritis Discharge Diagnosis: Primary [...] # 270 tabs, 3 Refill(s), Pharmacy: [facility], 3 tabs Oral Daily Start [...] 10 mL, 1 Refill(s), Pharmacy: [facility], 0.9 mL SubCutaneous qWeek,Instr:ON TUESDAYS. PLEASE DISPENSE LARGE... Start Date: 07/18/15 Status: Ordered miconazole 50 mg buccal tablet 50 mg 1 tabs, Buccal, QID, # 40 tabs, 0 Refill(s), Pharmacy: [facility], 1 tabs Buccal QID Start Date: 06/16/15 Status: Ordered oxyCODONE-acetaminophen 7.5 mg-325 mg oral tablet 1 tabs, Oral, q6hr, as needed for pain, # 120 tabs, 0 Refill(s) Start Date: 06/16/15 Status: Ordered potassium chloride 20 mEq oral tablet, extended release See Instructions, TAKE 1 TABLET BY MOUTH DAILY WITH FUROSEMIDE, # 30 tabs, 2 Refill(s), eRx: [facility], TAKE 1 TABLET BY MOUTH DAILY [...]
--- OUTSIDE RECORDS SUMMARY | 2016-12-04 10:32 | XMS REPORT | CCD ---
Author Author ROBY AMADOR Organization Unknown Address [address], [place] [id number] Phone 0 Care Team Providers Care Assistant Shift Supervisor Name Role Phone ESTER CALDERON Attending Physician 0 Vital Signs Unknown or Not Available. Allergies [...] Date Resolved Date Status CHRONIC KIDNEY DISEASE [id number] Active Results Unknown or Not Available. Active Medications Medication Code Dose Units Frequency Route Modification Start Date/Time Lasix 20MG Oral Tablet 20 MILLIGRAMS DAILY ORAL 10/06/2012 09:17 Prescription Detail 20 MILLIGRAMS ORAL DAILY Levothyroxine Sodium 0.137MG Oral Tablet 304330 0.137 MILLIGRAMS DAILY ORAL 10/06/2012 09:17 Prescription Detail 0.137 MILLIGRAMS ORAL DAILY Lutein 20MG Oral Tablet [id number] 20 MILLIGRAMS DAILY ORAL 10/06/2012 09:17 Prescription Detail 20 MILLIGRAMS ORAL DAILY Refresh Ophthalmic Solution [id number] 1 EACH NEEDED OPTHALMIC 10/06/2012 09:17 Prescription Detail 1 EACH OPTHALMIC NEEDED Calcitrate 950MG Oral Tablet [id number] 950 MILLIGRAMS THREE TIMES DAILY ORAL 10/06/2012 09:17 Prescription Detail 950 MILLIGRAMS ORAL THREE TIMES DAILY Crestor 10MG Oral Tablet [id number] 10 MILLIGRAMS AT BEDTIME ORAL 10/06/2012 09:17 Prescription Detail 10 MILLIGRAMS ORAL AT BEDTIME Methotrexate Sodium 25MG/ML Injection Solution [id number] 0.9 EACH WEEKLY INJECTION 10/06/2012 09:17 Prescription Detail 0.9 EACH INJECTION WEEKLY Optive 0.5%-0.9% Ophthalmic Solution [id number] 1 EACH TWICE A DAY OPTHALMIC 10/06/2012 09:17 Prescription Detail 1 EACH OPTHALMIC TWICE A DAY Tylenol Extra Strength 500MG Oral Capsule [id number] 500 MILLIGRAMS NEEDED ORAL 10/06/2012 09:17 Prescription Detail 500 MILLIGRAMS ORAL NEEDED Vitamin C 500MG Oral Tablet 418260 500 MILLIGRAMS DAILY ORAL 10/06/2012 09:17 Prescription Detail 500 MILLIGRAMS ORAL DAILY Diltiazem HCl 120MG Oral Tablet [id number] 120 MILLIGRAMS DAILY ORAL 10/06/2012 09:17 Prescription Detail 120 MILLIGRAMS ORAL DAILY Medications Administered During Visit Unknown or Not Available. Encounters Encounter Diagnosis Diagnosis Code Start Date Encounter for screening mammogram for malignant neoplasm of breast [id number] 05/28/2016 Social History Smoking Status Code Start Date End Date Never smoker [id number] Patient Decision Aids Unknown or Not Available. Discharge Instructions You were admitted to [facility] on 05/28/2016 09:30 with a principal diagnosis of Encntr screen mammogram for malignant neoplasm of breas You were discharged from [facility] on 05/28/2016 09:31 Should you have any questions prior to discharge, please contact a member of your healthcare team. If you have left the hospital and have any questions, please contact your primary care physician. Chief Complaint and Reason For Visit Chief Complaint Date of Onset MM BILAT SCREEN Function Status Unknown or Not Available. Plan of Care Unknown or Not Available. Referral/Transition of Care Unknown or Not Available.
--- OUTSIDE RECORDS SUMMARY | 2016-12-04 10:32 | XMS REPORT | Referral Summary ---
Author Author [facility] Organization [facility] Address Unknown Phone Unavailable Care Team Providers Care Program/Music Director Name Role Phone Ana Brice Primary Care Physician [phone] Encounter VC Date(s): 04/16/16 - 04/16/16 [facility] [address] [place], [place] [address] Discharge Diagnosis: Dementia Discharge Diagnosis: Primary generalized (osteo)arthritis Discharge Diagnosis: High risk medication use Discharge Diagnosis: Rheumatoid arthritis Discharge Disposition: 01-Home or Self Care Attending Physician: Rhiannon Adkins MD Admitting Physician: Rhiannon Adkins MD Referring Physician: El Yaenz MD Vital Signs Most recent to 1 oldest [Reference Range]: Temperature Oral 36.7 degC [35.8-37.3 degC] (04/16/16 9:57 AM) Peripheral Pulse 74 bpm Rate [60-100 bpm] (04/16/16 9:57 AM) Blood Pressure 118/65 mmHg [90-140/60-90 mmHg] (04/16/16 9:57 AM) Problem List Condition Effective Dates Status [...] not elsewhere classified(Confirmed ) Rheumatoid Active arthritis(Confirmed) Dementia(Confirmed) Active Allergies, Adverse Reactions, Alerts Substance Reaction Severity [...] Daily, # 270 tabs, 3 Refill(s), Pharmacy: [facility], 3 tabs Oral Daily Start [...] # 10 mL, 1 Refill(s), Pharmacy: [facility], 0.9 mL SubCutaneous qWeek,Instr:ON TUESDAYS. PLEASE DISPENSE LARGE... Start Date: 07/18/15 Status: Ordered miconazole 50 mg buccal tablet 50 mg 1 tabs, Buccal, QID, # 40 tabs, 0 Refill(s), Pharmacy: [facility], 1 tabs Buccal QID Start Date: 06/16/15 Status: Ordered oxyCODONE-acetaminophen 7.5 mg-325 mg oral tablet 1 tabs, Oral, q6hr, as needed for pain, # 120 tabs, 0 Refill(s), Indication: Chronic Pain Start Date: 04/16/16 Status: Ordered potassium chloride 20 mEq oral tablet, extended release See Instructions, TAKE 1 TABLET BY MOUTH DAILY WITH FUROSEMIDE, # 30 tabs, 2 Refill(s), eRx: [facility], TAKE 1 TABLET BY MOUTH DAILY [...] to 1 oldest [Reference Range]: WBC [4.8-10.8 5.8 10*3/uL 10*3/uL] (04/16/16 11:13 AM) RBC [4.00-5.20] 3.75 *LOW* (04/16/16 11:13 AM) Hgb [12.0-16.0 10.4 gm/dL gm/dL] *LOW* (04/16/16 11:13 AM) Hct [37.0-47.0 %] 34.2 % *LOW* (04/16/16 11:13 AM) MCV [82.0-99.0 fL] 91.2 fL (04/16/16 11:13 AM) MCH [27.0-32.0 pg] 27.7 pg (04/16/16 11:13 AM) MCHC [32.0-36.0 30.4 gm/dL gm/dL] *LOW* (04/16/16 AM) RDW [11.5-14.5 %] 15.2 % *HI* (04/16/16:13 AM) Platelet [150-400 326 10*3/uL 10*3/uL] (04/16/1613 AM) MPV [8.8-14.8 fL] 10.3 fL (04/16/16 AM) Immature 0.2 % Granulocytes (04/16/16 AM) [0.0-1.0 %] Neutrophils [51-75 55 % %] (04/16/16 AM) Lymphocytes [20-46 26 % %] (04/16/16 AM) Monocytes [4-11 %] 14 % *HI* (04/16/16 AM) Eosinophils [0-4 %] 4 % (04/16/16 AM) Basophils [0-2 %] 1 % (04/16/16:13 AM) Neutro Absolute 3.18 10*3 [1.90-7.00 10*3] (04/16/16:13 AM) Lymph Absolute 1.49 10*3 [0.80-3.30 10*3] (04/16/16:13 AM) [place] Absolute 0.82 10*3 [0.30-1.00 10*3] (04/16/16: AM) Eos Absolute 0.21 10*3 [0.00-0.50 10*3] (04/16/16:13 AM) Baso Absolute 0.06 10*3 [0.00-0.20 10*3] (04/16/16:13 AM) Sed Rate [0-23] 59 *HI* (04/16/16 AM) Chemistry Most recent to 1 oldest [Reference Range]: Sodium Lvl [135-144 143 mEq/L mEq/L] (04/16/16:13 AM) Potassium Lvl 5.0 mEq/L [3.5-5.2 mEq/L] (04/16/16: AM) Chloride [99-111 112 mEq/L mEq/L] *HI* (04/16/16 11:13 AM) CO2 [22-31 mEq/L] 26 mEq/L (04/16/16:13 AM) AGAP [3-20] 5 (04/16/16:13 AM) BUN [10-20 mg/dL] 30 mg/dL *HI* (04/16/16: AM) Glucose Lvl [70-99 87 mg/dL mg/dL] (04/16/16: AM) Creatinine Lvl 1.46 mg/dL [0.57-1.11 mg/dL] *HI* (04/16/16: AM) eGFR [>60 mL/min] 34 mL/min 1 *ABN* (04/16/16 AM) Calcium Lvl 9.3 mg/dL [8.9-10.5 mg/dL] (04/16/16: AM) Albumin Lvl [3.4-4.8 3.9 gm/dL gm/dL] (04/16/16 AM) Total Protein 6.8 gm/dL [6.0-7.6 gm/dL] (04/16/16:13 AM) Globulin [1.8-4.0 2.9 gm/dL gm/dL] (04/16/16:13 AM) ALT [0-55 U/L] 9 U/L (04/16/16:13 AM) AST [5-34 U/L] 16 U/L (04/16/16: AM) Alk Phos [40-150 86 U/L U/L] (04/16/16:13 AM) Bili Total [0.2-1.2 0.3 mg/dL mg/dL] (04/16/16:13 AM) 1Result Comment: Multiply eGFR results by [...] Visit Note Author: Rhiannon Adkins MD Date: 04/16/16 Assessment/Plan 1.Rheumatoid arthritis Ordered: C-Reactive Protein (CRP) Sedimentation Rate 2.Primary generalized (osteo)arthritis 3.Dementia 4.High risk medication use Ordered: CBC w/ Differential Comprehensive Metabolic Panel Orders: oxyCODONE-acetaminophen, 1 tabs, Oral, q6hr, as needed for pain, # 120 tabs, 0 Refill(s), Indication: Chronic Pain
--- OUTSIDE RECORDS SUMMARY | 2016-12-04 10:32 | XMS REPORT | Referral Summary ---
Author Author [facility] Organization [facility] Address Unknown Phone Unavailable Care Team Providers Care Label Stitcher Name Role Phone El Yanez Primary Care Physician [phone] Encounter Date(s): 02/21/15 - 02/21/15 [facility] [address] [place], [place] [address] Discharge Diagnosis: ETD (eustachian tube dysfunction) Discharge Diagnosis: SNHL (sensorineural hearing loss) Discharge Diagnosis: Cerumen impaction Discharge Disposition: 01-Home or Self Care Attending Physician: Unruly Zamarripa MD Admitting Physician: Unruly Zamarripa MD Referring Physician: Amy Saravia Vital Signs No data available for this [...] Daily, # 270 tabs, 3 Refill(s), Pharmacy: [facility], 3 tabs Oral Daily Start Date: [...] mL, 1 Refill(s), Pharmacy: [facility], 0.9 mL SubCutaneous qWeek,Instr:ON TUESDAYS. PLEASE DISPENSE LARGE... Start Date: 07/18/15 Status: Ordered miconazole 50 mg buccal tablet 50 mg 1 tabs, Buccal, QID, # 40 tabs, 0 Refill(s), Pharmacy: [facility], 1 tabs Buccal QID Start Date: 06/16/15 Status: Ordered oxyCODONE-acetaminophen 7.5 mg-325 mg oral tablet 1 tabs, Oral, q6hr, as needed for pain, # 120 tabs, 0 Refill(s) Start Date: 06/16/15 Status: Ordered potassium chloride 20 mEq oral tablet, extended release See Instructions, TAKE 1 TABLET BY MOUTH DAILY WITH FUROSEMIDE, # 30 tabs, 2 Refill(s), eRx: [facility], TAKE 1 TABLET BY MOUTH [...] Procedure Date Related Diagnosis Body Site Removal impacted cerumen requiring 02/21/15 instrumentation, unilateral. Left hip hemiarthroplasty dislocation - 02/04/11 reduction [...] Extracted from: Title: Office Visit Note Author: Unruly Zamarripa MD Date: 02/21/15 Assessment/Plan 1.Cerumen impaction I counseled the patient that her middle ear effusion has cleared. Her ETD is manageable with medication in my opinion. I would not recommend a tube placement. Return to clinic prn. 2.ETD (eustachian tube dysfunction) 3.SNHL (sensorineural hearing loss)
--- OUTSIDE RECORDS SUMMARY | 2016-12-04 10:33 | XMS REPORT | Referral Summary ---
Author Author [facility] Organization [facility] Address Unknown Phone Unavailable Care Team Providers Care Towel Cabinet Repairer Name Role Phone El Yanez Primary Care Physician [phone] Encounter VC Date(s): 02/08/15 - 02/08/15 [facility] [address] [place] [address]- Discharge Diagnosis: ETD (eustachian tube dysfunction) Discharge Disposition: 01-Home or Self Care Attending Physician: Ruby Gr Vital Signs No data available for this [...] # 10 mL, 1 Refill(s), Pharmacy: [facility], 0.9 mL SubCutaneous qWeek,Instr:ON TUESDAYS. PLEASE DISPENSE LARGE... Start Date: 07/18/15 Status: Ordered miconazole 50 mg buccal tablet 50 mg 1 tabs, Buccal, QID, # 40 tabs, 0 Refill(s), Pharmacy: [facility], 1 tabs Buccal QID Start Date: 06/16/15 Status: Ordered oxyCODONE-acetaminophen 7.5 mg-325 mg oral tablet 1 tabs, Oral, q6hr, as needed for pain, # 120 tabs, 0 Refill(s) Start Date: 06/16/15 Status: Ordered potassium chloride 20 mEq oral tablet, extended release See Instructions, TAKE 1 TABLET BY MOUTH DAILY WITH FUROSEMIDE, # 30 tabs, 2 Refill(s), eRx: [facility], TAKE 1 TABLET BY MOUTH [...]
--- OUTSIDE RECORDS SUMMARY | 2016-12-04 10:33 | XMS REPORT | Continuity of Care Document ---
Author Author [facility] Organization [facility] Address Unknown Phone Unavailable Allergies Active Description Code Type Severity Reaction Onset Reported/Identified Relationship to Patient Clinical Status Yes ARICEPT [id number] Drug Allergy N/A N/A Yes NKDA N/A N/A Medications Medication Packaging Start Date Stop Date Route Dosage Sig [id number] 10/04/2014 at bed-time Problems Procedures Results Encounters ACCT No. Visit Date/Time Discharge Status Pt. Type Provider Facility Loc./Unit Complaint [id number] 10/07/2013 10:14:00 10/07/2013 23 :59:59 CLS Outpatient [id number] 07/06/2013 10:16:00 07/06/2013 23 :59:59 CLS Outpatient
[2016-12-04] MEDS ORDERED: HYDROCORTISONE 100mg/2ml Injection IV ONE (11:00)
--- NOTE | 2016-12-04 11:27 | ANESPREOP ---
Anesthesia Record Date and Time DATE: 12/04/16 TIME: 11:24 Pre-Op Diagnosis Left inguinal hernia Proposed Surgical Procedure open left inguinal hernia repair NPO since: Midnight Allergies: Coded Allergies: hydrocodone (Verified Allergy, Intermediate, CRAZY/DIZZY, 08/26/11) ibuprofen (Verified Allergy, Mild, PHASES ME OUT, 08/26/11) epinephrine (Verified Allergy, Unknown, UNKNOWN; PER HISTORY, 05/14/15) iodine (Verified Allergy, Unknown, UNKNOWN; PER HISTORY, 05/14/15) iron (Verified Allergy, Unknown, UNKNOWN; PER HISTORY, 05/14/15) metoprolol (Verified Allergy, Unknown, UNKNOWN; PER HISTORY, 05/14/15) omeprazole (Verified Allergy, Unknown, UNKNOWN; PER HISTORY, 05/14/15) vancomycin (Verified Allergy, Unknown, HEARING LOSS, 08/26/11) etodolac (Verified Adverse Reaction, Intermediate, CONFUSION, 09/19/11) aspirin (Verified Adverse Reaction, Mild, EARS RINGING, 08/26/11) Clindamycin Palmitate HCl (Verified Adverse Reaction, Unknown, 05/14/15) clindamycin HCl (Verified Adverse Reaction, Unknown, 05/14/15) clindamycin phosphate (Verified Adverse Reaction, Unknown, 05/14/15) propoxyphene (Verified Adverse Reaction, Unknown, DIZZINESS, CRAZY DREAMS , 08/26/11) verapamil (Verified Adverse Reaction, Unknown, 05/14/15) Ht/Wt/BMI Height: 5 ' 4.00 " Weight: 60.500 kg BMI: 22.9 kg/m2 Vital Signs Date Time Temp Pulse Resp B/P Pulse Ox O2 Delivery O2 Flow Rate FiO2 12/04/16 11:10 97.7 80 14 155/72 99 Room Air Medications Inpatient Medications Current Medications Medications (Trade) Dose Ordered Sig/Eugenio Start Time Stop Time Status Last Admin Dose Admin Multi-Ingredient Antiseptic (Nozin Nasal Swab) 3 each PREOP PRN 12/04/16 07:00 Acetaminophen (Tylenol Extra Strength) 500 Mg Tablet, 500 MG PO TID, (Reported) Ascorbate Calcium (Vitamin C) 500 Mg Tablet, 1 TAB PO DAILY, (Reported) Levothyroxine Sodium (Levothyroxine Sodium) 150 Mcg Tablet, 1 TAB PO DAILY, ( Reported) Methotrexate Sodium/Pf (Methotrexate 25 Mg/Ml Vial) 25 Mg/Ml Vial, 0.9 ML IJ WEEKLY ON TUESDAYS, (Reported) Multivitamins (Multivitamin) 1 Tab Tablet, 1 TAB PO DAILY, (Reported) Rivastigmine Tartrate (Rivastigmine) 1.5 Mg Capsule, 1 TAB PO BID, (Reported) Rosuvastatin (Crestor) 10 Mg Tablet, 10 MG PO HS, (Reported) Currently on Beta Karla: No Medical/Surgical History Anesthesia PMH: Reports: *Dyspnea (WITH EXERTION), Anesthesia Reactions ( HYPOTENSION WITH GENERAL SBP <40 AFTER ANESTHESIA, HAS DIFFICULTY WAKING), Arthritis (RHEUMATOID ARTHRITIS), Cancer (R BREAST CANCER, COLON CANCER), Headaches (OCCAS), Hyperlipidemia, Pneumonia (HX- as child), Reflux, Renal Disease (STAGE III CHRONIC KIDNEY DISEASE-sees tu), Rheumatic Fever (as a child), Thyroid Disease, Denies: *Angina, *Diabetes, *Hypertension, *SD, Asthma , Blood Transfusion Reac, CHF, COPD, CVA/Stroke/TIA, Clotting Problems, Deep Vein Thrombosis, Glaucoma (MACULAR DEGENERATION), Hepatitis, Hiatal Hernia, Malignant Hyperthermia, Seizures, Sleep Apnea, Tuberculosis Smoking Status: Former smoker Has pt. smoked today?: No Use Chewing Tobacco?: No Second Hand Exposure: No Substance Use Type: does not use Alcohol Intake: none HX of Last Menstrual Period: hyst. Past Surgical History Orthopedic Surgeries: Yes - L BREAST BX, L CTR, R FINGER FX, R PATELLA REPLACED , L ANKLE, [place]. HIP Abdominal Surgeries: - COLON RESECTION; APPY Genitourinary Surgeries: Yes - CYSTO Cardiac Surgeries: Yes - HEART CATH X 3 Endocrine Surgeries: No Reproductive Surgeries: Yes - RIGHT MASTECTOMY, HYST, L BREAST BX Neurological Surgeries: Yes - L4-5 LUMBAR VERTEBRAL FUSION, LT FEM HEAD REPL, CR LT HIP, LT HIP ACETAB RE Ear Surgeries: No Nose Surgeries: Yes - POLYPS REMOVED Throat Surgeries: Yes - TONSILLECTOMY, EGD WITH BX Other Surgeries: Yes - PAC, COLONOSCOPY, B CATARACTS Anesthesia Adverse Reactions: FOUND other (Hypotension) Family Hx of Anesthesia Advers: none Pertinent Findings EKG Rhythm: Sinus Rhythm Physical Exam Respiratory: Lungs clear Cardiovascular: FOUND Regular rate, rhythm Airway Assessment Mallampati Score: II TMD: 3 Fingerbreadths Neck Extension: Fair Teeth: Upper Dentures, Lower Dentures Overall Assessment: May Be Diff Intubation ASA: 3 Plan Anesthesia Plan: GETA Discussion Discussed risks/options/alternatives of anesthesia and questions answered. Patient consents. Nursing pain assessment noted. Present: Family Member Attestation Statement Prior to the delivery of any anesthetic medication, I examined the patient, developed the plan, obtained the patient's consent and discussed the risk and benefits of the procedure with the patient/guardian. TENNILLE CASTLE SENIOR TECHNICAL PROGRAM MANAGER December 04, 2016 11:27
[2016-12-04 11:40] LABS: BASOPHILS % (AUTO) 0.7 % (0-2); EOSINOPHILS # (AUTO) 0.3 T/MM3 (0-0.5); EOSINOPHILS % (AUTO) 6.1 % (0-4); HCT - HEMATOCRIT 38.3 % (36-46); HGB - HEMOGLOBIN 11.7 GM/DL (12-16); LYMPHOCYTES # (AUTO) 1.6 T/MM3 (1-4.8); LYMPHOCYTES % (AUTO) 38.7 % (23-45); MEAN CORPUSCULAR HGB 27.4 UUG (26-34); MEAN CORPUSCULAR HGB CONC(MCHC 30.5 GM/DL (31-37); MEAN CORPUSCULAR VOLUME 89.7 UM3 (80-100); MEAN PLATELET VOLUME 10.1 UM3 (9.4-12.4); MONOCYTES # (AUTO) 0.4 T/MM3 (0-0.8); MONOCYTES % (AUTO) 8.6 % (0-9.0); NEUTROPHILS #(AUTO)-ABSOLUTE 1.9 T/MM3 (1.8-7.7); NEUTROPHILS % (AUTO) 45.9 % (33-66); RED BLOOD COUNT 4.27 M/MM3 (4.00-5.20); WBC - WHITE BLOOD COUNT 4.1 T/MM3 (4.5-11.0)
[2016-12-04 11:49] LABS: ALBUMIN/GLOBULIN RATIO 1.2 RATIO (1.1-2.2); ALKALINE PHOSPHATASE 84 U/L (38-126); ALT (SGPT) 28 U/L (9-52); ANION GAP 14 MEQ/L (5-15); AST (SGOT) 21 U/L (14-36); BUN/CREATININE RATIO 22 RATIO (6-26); CALCIUM 9.8 MG/DL (8.4-10.2); CHLORIDE 111 MEQ/L (98-107); CO2 - CARBON DIOXIDE 23 MEQ/L (22-30); CREATININE 1.5 MG/DL (0.7-1.2); GLOMERULAR FILTRATION RATE 33; GLUCOSE 103 MG/DL (65-110); SODIUM 148 MEQ/L (134-144); TOTAL PROTEIN 7.4 G/DL (6.3-8.2)
[2016-12-04] MEDS ORDERED: OMEP20CA10 PO (12:11)
[2016-12-04] MEDS ORDERED: FOLI0.4T2 PO (12:11)
[2016-12-04] MEDS ORDERED: OXYC-532 PO (12:11)
[2016-12-04] MEDS ORDERED: ESCI10TA47 PO (12:11)
[2016-12-04] MEDS ORDERED: [UNRECOGNIZED DRUG - OTHER] PO (12:11)
[2016-12-04] MEDS ORDERED: ACET-3088 PO (12:11)
[2016-12-04] MEDS ORDERED: NORMAL SALINE 1,000 ML IV ONE (13:29)
[2016-12-04] MEDS ORDERED: BUPIVACAINE 0.25% (2.5mg/ml) INJ 30ml SDV ONE (13:43)
[2016-12-04] MEDS ORDERED: PROPOFOL 500mg 100 ML IV ONE (14:04)
[2016-12-04] MEDS ORDERED: PROPOFOL 200mg 20 ML IV ONE (14:04)
[2016-12-04] MEDS ORDERED: LIDOCAINE JELLY 2% 30ml TUBE ONE (14:11)
[2016-12-04] MEDS ORDERED: FENTANYL 100mcg/2ml INJECTION ONE (14:19)
[2016-12-04] MEDS ORDERED: PHENYLEPHRINE 10mg/ml INJECTION ONE (14:27)
[2016-12-04] MEDS ORDERED: SALINE FLUSH 10ml SYRINGE ONE (14:28)
[2016-12-04] MEDS ORDERED: ONDANSETRON 4mg/2ml INJECTION IV PRN ×2 (15:00→15:45)
[2016-12-04] MEDS ORDERED: HYDROMORPHONE 2mg/ml INJECTION IV PRN (15:00)
--- NOTE | 2016-12-04 15:36 | GSPOSTPROC ---
Immediate Operative Note DATE: 12/04/16 TIME: 15:35 Postop Diagnosis: Left inguinal hernia Surgical Procedure: Other (Repair of left inguinal hernia) Surgeon: Ivet ASA: 3 MARCO A BORGES MD December 04, 2016 15:36
[2016-12-04] MEDS ORDERED: MORPHINE SULFATE 10 MG SYRINGE IV PRN (15:45)
[2016-12-04] MEDS ORDERED: PROMETHAZINE 25 MG INJECTION IV PRN (15:45)
--- NOTE | 2016-12-04 15:59 | ANESPO ---
Post-Op Note Date 12/04/16 Time: 15:58 Status Pt Participated in Evaluation: Pt participated in person Vital Signs Date Time Temp Pulse Resp B/P Pulse Ox O2 Delivery O2 Flow Rate FiO2 12/04/16 15:39 98.3 70 16 95/53 100 Mask 6.00 Respiratory Function: Airway patent, Regular respirations Cardiovascular Function: Regular pulse Mental Status: Alert/oriented Pain Level Intensity: 0 Unable to Assess Pain Due To: Medicated/Sleeping Hydration: IV infusing Complications during Recovery None apparent Follow-Up Instructions Instructions Per Surgeon MARIZOL ROJAS CRNA December 04, 2016 15:59
--- NOTE | 2016-12-04 16:40 | NUR ---
ADMIT PT TO ROOM 133 PER OR CART. REQUESTED TO BE UP TO BR RIGHT AWAY. WAS ABLE TO WALK TO BR WITH ASSIST OF 2 USING CANE AND GB. C/O "SOME BURNING" AT INCISION SITE BUT DENIES PAIN. DRESSING D&I
--- NOTE | 2016-12-04 19:12 | NUR ---
SUMMARY PT UP TO BR AFTER ADMIT. MISSED HAT. WANTED COFFEE RIGHT AWAY AND ENJOYED IT! TOLERATED SOLID FOOD FOR EVENING MEAL WITHOUT N/V. DRESSING D&I. PT DENIES PAIN. SEE VITAL SIGNS DOCUMENTATION.
[2016-12-04] MEDS: RIVASTIGMINE 1.5 MG CAPSULE PO SCH (21:19)
[2016-12-04] MEDS: ACETAMINOPHEN 500 MG TABLET PO PRN (21:20)
[2016-12-04] MEDS: OXYCODONE I.R. 5 MG TABLET PO PRN (22:02)
[2016-12-05] VITALS: BP 91/48; PULSE 72; RESP 22; TEMP 96.8; O2SAT 96
[2016-12-05] MEDS: OXYCODONE I.R. 5 MG TABLET PO PRN ×4 (03:53→11:19)
[2016-12-05 04:00] VITALS: BP 115/57; PULSE 55; RESP 20; TEMP 97.1; O2SAT 100
--- NOTE | 2016-12-05 04:47 | NUR ---
SUMMARY PT ALERT AND ORIENTED TO SELF, MODERATE CONFUSION NOTED. VSS. IVL IN THE LT FOREARM. HAS REPORTED PAIN A COUPLE OF TIMES PRN ROXICODONE GIVEN ORDERED. AMBULATES TO THE BATHROOM WITH ASSIST OF ONE, USING A CANE. GOOD OUTPUT. DRESSING IS CLEAN, DRY, AND INTACT.
[2016-12-05] MEDS ORDERED: LEVOTHYROXINE 150 MCG TABLET PO SCH (06:30)
[2016-12-05 06:51] VITALS: BP 111/63; PULSE 66; RESP 16; TEMP 95.9; O2SAT 98
[2016-12-05 07:46] VITALS: BP 121/61; PULSE 67; RESP 18; TEMP 96.9; O2SAT 99
[2016-12-05] MEDS: RIVASTIGMINE 1.5 MG CAPSULE PO SCH (08:55)
[2016-12-05] MEDS ORDERED: FOLIC ACID 1 MG TABLET PO SCH (09:00)
[2016-12-05] MEDS ORDERED: ESCITALOPRAM 10 MG TABLET PO SCH (09:00)
[2016-12-05 09:31] VITALS: PULSE 67; RESP 18; O2SAT 99
[2016-12-05] MEDS: ACETAMINOPHEN 500 MG TABLET PO PRN (09:33)
--- NOTE | 2016-12-05 09:34 | NUR ---
CM CM IN TO VISIT WITH PT. SHE IS ALERT AND ANSWERS QUESTIONS APPROPRIATELY. SHE IS TEARFUL. SHE REPORTS PAIN AND NAUSEA. "I CAN BARELY EAT. I'M JUST NOT USED TO FEELING THIS WAY." PT RN, ASH, COMES IN TO OFFER PT MEDICATIONS. SHE REFUSED ZOFRAN. SHE WOULD LIKE SOME TYLENOL. PT REPORTS THAT SHE RESIDES WITH SPOUSE. SHE DENIES DC NEEDS. SHE STATES, "I AM NOT HELPLESS. 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 SHE IS GIVEN CM CONTACT INFORMATION. LACE SCORE IS 3. Addendum: 12/05/16 at 0936 by JAY CASTELAN RN Amended: Links added.
--- NOTE | 2016-12-05 09:37 | NUR ---
CONFUSION PATIENT TELLS THIS RN THAT SHE NEEDS SOMETHING FOR NAUSEA. THIS RN OFFERS IV ZOFRAN. PT TELLS THIS RN THAT "THOSE DON'T WORK FOR ME". PATIENT THEN TELLS RN THAT SHE ISN'T NAUSEOUS BUT SHE IS IN, "A LOT OF PAIN". THIS RN PULLS EXTRA STRENGTH TYLENOL. PATIENT TELLS RN WHEN SHE RETURNS THAT SHE ISN'T IN PAIN. PATIENT GRIMACING AND GRABBING ABDOMEN. THIS RN ENCOURAGED PATIENT TO TAKE 1,00 MG TYLENOL FOR PAIN. PATIENT AGREED. WILL CONTINUE TO MONITOR.
--- NOTE | 2016-12-05 09:40 | OPNOTEF ---
DATE OF OPERATION 12/04/2016 PREOPERATIVE DIAGNOSIS Left inguinal hernia. POSTOPERATIVE DIAGNOSIS Left inguinal hernia. OPERATION Open repair of left inguinal hernia. SURGEON Dr. Ivet VARMA ASA CLASS 3 FINDINGS This patient did have an indirect left inguinal hernia. The patient had an indirect inguinal hernia sac which came out through a dilated internal inguinal ring. There was some preperitoneal adipose tissue around the outside of the hernia sac which came out through the internal inguinal ring along with the hernia sac. There was no direct inguinal hernia. DESCRIPTION OF OPERATION The patient was placed in supine position on the operating table. The patient was premedicated with intravenous sedation medication administered by the nurse senior data analyst. The left inguinal area was prepped and draped in routine sterile fashion. Skin and subcutaneous tissue at a left inguinal incision were infiltrated with bupivacaine 0.25% without epinephrine. An obliquely oriented left inguinal incision was made. The incision was extended down through the subcutaneous tissue. The incision was extended down to the level of the external oblique aponeurosis. Bupivacaine was infiltrated beneath the external oblique aponeurosis. The external inguinal ring was identified. The external oblique aponeurosis was opened in the direction of its fibers up to the external inguinal ring. The inguinal canal was entered. The ilioinguinal nerve was dissected out and preserved from injury. The iliohypogastric nerve was dissected out and preserved from injury. The round ligament was dissected out and identified. The indirect inguinal hernia sac was identified. The preperitoneal adipose tissue around the outside of the indirect inguinal hernia sac was dissected free of the indirect inguinal hernia sac up to the level of the internal inguinal ring. The preperitoneal adipose tissue which came out through the internal inguinal ring into the inguinal canal was excised and discarded. The indirect inguinal hernia sac was dissected free of the round ligament. The round ligament was divided at each end of the inguinal canal and excised and discarded. The indirect inguinal hernia sac was reduced back through the internal inguinal ring and reduced back towards the peritoneal cavity. The indirect inguinal hernia sac was not excised in this case. The hernia was then repaired with a mesh plug technique. A large-size Bard mesh PerFix plug kit was used. This kit contained a cone-shaped piece of polypropylene mesh as well as a flat piece of polypropylene mesh. The mesh plug was inserted with the tapered end first into the dilated internal inguinal ring. The margins of the mesh hernia plug were secured to the margins of the internal inguinal ring with a series of simple interrupted stitches using 2-0 PDS suture to hold the mesh plug in proper position within the ring. The repair was then reinforced with the flat piece of polypropylene mesh from the Bard mesh PerFix plug kit. This flat piece of polypropylene mesh was placed at the floor of the inguinal canal against the posterior inguinal wall. The medial end of the flat piece of mesh did extend up over the pubic tubercle. The lateral end of the flat piece of mesh did rest over the dilated internal inguinal ring over the mesh plug which was in place in the dilated internal inguinal ring. The inferior margin of the flat piece of mesh was secured down to the shelving edge of the inguinal ligament with a series of simple interrupted stitches using 2-0 PDS suture. The medial end of the flat piece of mesh was secured down to fascia adjacent to the pubic tubercle with some simple interrupted stitches of 2-0 PDS suture. The superior margin of the flat piece of mesh was secured down to the underlying internal oblique fascia with some simple interrupted stitches using 2-0 PDS suture. The ilioinguinal nerve and the iliohypogastric nerve were both carefully identified and preserved from injury throughout all this time. The ilioinguinal nerve was returned to normal anatomic position on top of the flat piece of mesh. The margins of the external oblique aponeurosis were then reapproximated in normal anatomic fashion with continuous simple [id number] stitch using 3-0 Vicryl suture. Eduarda's fascia margins at the wound were reapproximated with a continuous simple [id number]-[id number] stitch using 3-0 Vicryl suture. Skin margins at the wound were reapproximated with skin enid. Sterile dressings were applied. Sponge, needle and instrument counts were all correct. The patient did continue to receive intravenous sedation medication administered by the nurse senior data analyst throughout the operation as needed to maintain patient comfort. The patient did appear to tolerate the operation well. The patient was transferred from the operating room to the recovery room in satisfactory condition. JACOBO
--- NOTE | 2016-12-05 12:31 | NUR ---
CM PT SPOUSE VISIT WITH CM. HE HAS CONCERNS ABOUT CARING FOR PT AT HOME SECONDARY TO DEMENTIA. HE HAS SPOKEN WITH [facility] ABOUT POSSIBLE PLACEMENT. HE IS AWARE THAT MEDICARE WOULD NOT COVER HER STAY AND THAT IT WOULD BE PRIVATE PAY. HE IS REASSURED THAT CM CAN ASSIST WITH SETTING UP TRANSPORTATION.
--- NOTE | 2016-12-05 12:45 | PDOCECFAO ---
Admission Orders Admission Orders Admit to: [facility] Allergies: Coded Allergies: hydrocodone (Verified Allergy, Intermediate, CRAZY/DIZZY, 12/04/16) ibuprofen (Verified Allergy, Mild, PHASES ME OUT, 12/04/16) epinephrine (Verified Allergy, Unknown, UNKNOWN; PER HISTORY, 12/04/16) iodine (Verified Allergy, Unknown, UNKNOWN; PER HISTORY, 12/04/16) iron (Verified Allergy, Unknown, UNKNOWN; PER HISTORY, 12/04/16) metoprolol (Verified Allergy, Unknown, UNKNOWN; PER HISTORY, 12/04/16) omeprazole (Verified Allergy, Unknown, UNKNOWN; PER HISTORY, 12/04/16) vancomycin (Verified Allergy, Unknown, HEARING LOSS, 12/04/16) etodolac (Verified Adverse Reaction, Intermediate, CONFUSION, 12/04/16) aspirin (Verified Adverse Reaction, Mild, EARS RINGING, 12/04/16) Clindamycin Palmitate HCl (Verified Adverse Reaction, Unknown, 12/04/16) clindamycin HCl (Verified Adverse Reaction, Unknown, 12/04/16) clindamycin phosphate (Verified Adverse Reaction, Unknown, 12/04/16) propoxyphene (Verified Adverse Reaction, Unknown, DIZZINESS, CRAZY DREAMS , 12/04/16) verapamil (Verified Adverse Reaction, Unknown, 12/04/16) Admitting Diagnosis Open Lt Inguinal Hernia Repair Admitting Physician Cristo Cooney MD Code Status Full Code Anticipated LOS: 30 days or less Rehab Potential: Good Rehab Prognosis: Good Diet: Regular May use Facility Protocol /SO: Yes May Have Flu Vaccine: Yes Group Home Certification I certify that SNF services are required to be given on an Inpatient basis because of the patients need for correction care on a continuing basis for the condition(s) for which he/she received inpatient hospital services prior to his/her transfer to the SNF. SNF inpatient care is necessary for the following reasons Not Applicable Cardiac or Respiratory Arrest In Event of Arrest: Start CPR,call 911,to ER Resident is Aware of Diagnosis: Yes CRISTO COONEY MD December 05, 2016 12:45
--- NOTE | 2016-12-05 14:48 | NUR ---
CM PT SPOUSE SPOKE WITH [facility] ABOUT PRIVATE PAY. HE AND PATIENT HAVE DECIDED AGAINST PLACEMENT. CM VISITS WITH THEM ABOUT [facility]. PT IS RELUCTANT BUT AGREES TO [facility]. THEY WOULD LIKE TO USE [facility]. LATER, SPOUSE REQUESTS CM RETURN. HE WANTS TO TALK ABOUT FUTURE PLACEMENT.CM INQUIRES IF HE FEEL THAT PT CAN HURT HIM OR HERSELF. HE DENIES THAT HE FEELS THREATENED. HE IS ENCOURAGED TO CONTACT CM, [facility] OR PCP IF HE DECIDES UPON PLACEMENT IN THE FUTURE. HE VERBALIZED UNDERSTANDING. CM INQUIRES IF HE HAS CHANGED HIS MIND AND WANT TO PLACE PT TODAY. HE DENIES. HE STATES THAT THEY WILL RETURN HOME WITH [facility].
[2016-12-05] MEDS ORDERED: OXYC5CAP3 PO (14:56)
--- NOTE | 2016-12-05 16:49 | PNF ---
DATE 12/05/2016 POSTOP DAY #1 HISTORY The patient is doing well overall since her operation yesterday. She is tolerating her diet well. She is up in the chair at this time. She does not have any problems with the wound. PHYSICAL EXAMINATION Vital signs: Temperature is 96.9 degrees axillary. Pulse is 67. Respiratory rate is 18. Blood pressure is 121/61. Oxygen saturation is 99% on room air. The left inguinal incision looks good. No sign of any wound-healing problems. IMPRESSION Doing well following left inguinal hernia repair on 12/04/2016. PLAN The patient has plans at this time to be dismissed from [facility] today and go to the [facility] [place], [place] for continued recuperation. JACOBO
== END 2016-12-05 15:12 | disposition home health service (06) ==
LOC: SCU 10:26 → SRG 10:31 → SCU 12-05 15:12
PROVIDERS: ATTEND Surgery
DX: K40.90 Unilateral inguinal hernia, without obstruction or gangrene, not specified as recurrent (principal); E65 Localized adiposity; I25.10 Atherosclerotic heart disease of native coronary artery without angina pectoris; I27.2 Other secondary pulmonary hypertension; N18.3 Chronic kidney disease, stage 3 (moderate); E03.9 Hypothyroidism, unspecified; E78.5 Hyperlipidemia, unspecified; K21.9 Gastro-esophageal reflux disease without esophagitis; M06.9 Rheumatoid arthritis, unspecified; E27.49 Other adrenocortical insufficiency; K44.9 Diaphragmatic hernia without obstruction or gangrene; K57.30 Diverticulosis of large intestine without perforation or abscess without bleeding; R42 Dizziness and giddiness; Z79.899 Other long term (current) drug therapy
CPT/HCPCS: 36415; 49505; 80053; 85025; A9270; C1781; J1170; J1720; J2370; J2704; J3010; J7030

== ENCOUNTER 2016-12-16 20:51 | Emergency (ER) | payer MEDICARE, OTHER ==
[~2016-12-16] VITALS: Ht 160 cm; Wt 59.4 kg
[~2016-12-16 20:51] MED LIST changes: -ACET-1651 PO; +ACET-3088 PO; -CEFAZOLIN 1 GRAM INJECTION IV ONE; +ESCI10TA47 PO; +FOLI0.4T2 PO; -LIDOCAINE 1% (10mg/ml) 2ml SDV INJ ONE; -NORMAL SALINE 1,000 ML IV ONE; -NOZIN NASAL SWAB NS PRN; +OMEP20CA10 PO; +OXYC-532 PO; +OXYC5CAP3 PO; +[UNRECOGNIZED DRUG - OTHER] PO
[2016-12-16 20:53] VITALS: Ht 160 cm; Wt 59.4 kg
--- OUTSIDE RECORDS SUMMARY | 2016-12-16 20:55 | XMS REPORT | Continuity of Care Document ---
Author Author [facility] Organization [facility] Address Unknown Phone Unavailable Support Name Relationship Address Phone MARCO A BORGES MD Caregiver [address] [place] [address] [place] [address] Unavailable ESTER CALDERON MD Caregiver [address] [place] [address] Unavailable JOSEPHMAIKOL BRADLEY Ankit Next Of Kin [address] [id number] Insurance Providers Guarantor Santa Ruiz Address [address] [address] C Email DENIED 16 Payer Medicare Policy Number [id number] Subscriber's Name Santa Ruiz Relationship 18 Self Effective Date 94 Payer [place] Policy Number [id number] Subscriber's Name Santa Ruiz Relationship 18 Self Group Number [id number] Advance Directives Directive Response Recorded Date/Time Advanced Directives Type Living Will 01/07/14 12:23pm Ordered Resuscitation Status Full Code 01/07/14 1:24pm Resuscitation Documents on File Yes 01/07/14 12:23pm DPOA for Healthcare Only Y KARIS RUIZ-SON 12/04/16 11:25am Living Will Yes 12/04/16 11:25am Problems Active Problems Medical Problem Onset Date Status ACUTE POSTOPERATIVE BLOOD LOSS ANEMIA 12/12/2010 ACUTE POSTOPERATIVE BLOOD LOSS ANEMIA Unknown Abrasion of right elbow Unknown Acute Adrenal hypofunction 12/11/2010 Chronic Adrenal hypofunction Unknown Adrenal hypofunction Unknown Asymptomatic coronary heart disease 12/11/2010 Chronic Asymptomatic coronary heart disease Unknown Asymptomatic coronary heart disease Unknown Chronic kidney disease stage 3 12/11/2010 Chronic Chronic kidney disease stage 3 Unknown Chronic kidney disease stage 3 Unknown Chronic renal impairment 12/11/2010 Chronic Chronic renal impairment Unknown Closed fracture of femur 12/11/2010 Acute Closed fracture of femur Unknown Closed fracture of femur Unknown Fall as cause of accidental injury in home as place of occurrence Unknown Acute Hypothyroidism 12/11/2010 Chronic Hypothyroidism Unknown Hypothyroidism Unknown Laceration of left hand Unknown Acute Laceration of right forearm Unknown Acute Pulmonary hypertension 12/11/2010 Chronic Pulmonary hypertension Unknown Pulmonary hypertension Unknown Rheumatoid arthritis 12/11/2010 Chronic Rheumatoid arthritis Unknown Rheumatoid arthritis Unknown UTI (urinary tract infection) Unknown Acute s 12/11/2010 Medications Current Home Medications Medication Dose Units Route Directions Days Qty Instructions Start Date Acetaminophen (Tylenol Arthritis) 650 Mg Tablet.er 1 Tab Oral As Needed as needed for Pain 12/04/16 Ascorbate Calcium (Vitamin C) 500 Mg Tablet 1 Tab Oral Daily 08/21 Calcium Citr 600 Mg Oral Daily 12/04/16 Escitalopram Oxalate 10 Mg Tablet 1 Tab Oral Daily 12/04/16 Folic Acid 0.4 Mg Tablet 1 Tab Oral Daily 12/04/16 Levothyroxine Sodium 150 Mcg Tablet 1 Tab Oral Daily 12/03/16 Methotrexate Sodium/Pf (Methotrexate 25 Mg/Ml Vial) 25 Mg/Ml Vial 0.9 Ml Injection Weekly On Tuesdays10/21/08 Multivitamins (Multivitamin) 1 Tab Tablet 1 Tab Oral Daily Omeprazole 20 Mg Capsule.dr 20 Mg Oral Before Breakfast Take 1 capsule, by mouth, one time a day (before breakfast). 12/04/16 Oxycodone Hcl 5 Mg Capsule 1 Cap Oral Every 4 Hours 40 Capsule 10/19 Oxycodone Hcl/Acetaminophen (Oxycodon-Acetaminophen 7.5-325) 7.5-325 Tablet 1 Tab Oral Every 6 Hr Prn Take 1 tablet,by mouth, every 4 hours for Pain 12/04/16 Rivastigmine Tartrate (Rivastigmine) 1.5 Mg Capsule 1 Tab Oral Twice A Day 60 12/03/16 Rosuvastatin Calcium (Crestor) 10 Mg Tablet 10 Mg Oral Bedtime Past Home Medications Medication Directions Ordered Status Amoxicillin Trihydrate (Amoxicillin) 500 Mg Tablet, 500 Mg Oral 2 Tabs Bid Discontinued Ascorbic Acid (Vitamin C) 500 Mg Tablet, 500 Mg Oral Daily 08/26/11 Discontinued Calcium Carbonate/Vitamin D3 (Calcium + Vitamin D Tablet) 1 Tab Tablet, 1 Tab Oral Four Times Daily 10/21/08 Discontinued Calcium Citrate/Vitamin D3 (Calcium Citrate + D Caplet) 1 Tab Tablet, 1 Tab Oral Four Times Daily 09/12/10 Discontinued Carboxymethylcellulos/Glycerin (Optive Eye Drops) 30 Ml Drops, 30 Ml Ophthalmic Bedtime 09/20/11 Discontinued Cephalexin 500 Mg Tablet, 1 Tab Oral Three Times A Day 05/14/15 Discontinued Ciprofloxacin Hcl (Cipro) 500 Mg Tablet, 500 Mg Oral Twice A Day 09/12/10 Discontinued Folic Acid 5 Mg Capsule, 5 Mg Oral Daily 09/12/10 Discontinued Furosemide (Lasix) 20 Mg Tablet, 20 Mg Oral Daily 08/26/11 Discontinued Hydrocortisone 10 Mg Tablet, 10 Mg Oral Daily 09/12/10 Discontinued Hydrocortisone 5 Mg Tablet, 5 Mg Oral Evening 09/19/11 Discontinued Levothyroxine Sodium 150 Mcg Tablet, 150 Mcg Oral Daily 10/21/08 Discontinued Lutein 20 Mg Capsule, 20 Mg Oral Daily 09/12/10 Discontinued Lutein 6 Mg Capsule, 6 Mg Oral Daily 10/21/08 Discontinued Minocycline Hcl 100 Mg Capsule, 100 Mg Oral Twice A Day 12/07/10 Discontinued Minocycline Hcl 100 Mg Capsule, 100 Mg Oral Twice A Day 09/12/10 Discontinued Sodium Chloride 3.5 Gm Oint..gm., 3.5 Gm Ophthalmic Bedtime 09/20/11 Discontinued Verapamil Hcl (Calan Sr) 120 Mg Tablet.sa, 120 Mg Oral Daily 10/21/08 Discontinued Social History Social History Problem Response Recorded Date/Time Onset Date Status Reason for Hospitalization INGUINAL HERNIA REPAIR 12/05/2016 2:50pm Not Applicable Not Applicable Chewing Tobacco Status No 01/08/2014 6:59am Not Applicable Not Applicable Hx Substance Use No 12/03/2016 10:44am Not Applicable Not Applicable Hx Alcohol Use No 12/03/2016 10:44am Not Applicable Not Applicable Has the pt used tobacco in the last 12 months No 12/03/2016 10:44am Not Applicable Not Applicable Tobacco Usage none 05/15/2015 6:08pm Not Applicable Not Applicable Query Response Start Date Stop Date Smoking Status Never smoker Hospital Discharge Instructions Instructions: Care Instructions: I was in the hospital because (patient own words): "SURGERY TO REPAIR HERNIA" Discharge Diet: Resume previous diet. Discharge Activity: Restricted. Follow Up Appointments: FOLLOW UP WITH DR. BORGES IN HIS OFFICE ON 12/13/16 AT 11:15 Pending Lab / Results: No Pending Lab Expected Signs/Symptoms: Usual incisional discomfort Notify Physician If: Any concerns about appearance of wound. During Business Hours:: Please call the physician's office at [phone] and choose option 2. After Business Hours:: Please call [phone] and have the watch engine operator page Dr. Borges. Pain Management/Treatment: Take analgesics as prescribed. Wound/Incision Care: May shower over wound starting tomorrow. Condition at time of discharge: Good Plan of Care Discharge Date 12/05/16 3:12pm Instructions/Education Provided Inguinal Hernia (DC) Inguinal Hernia Repair (DC) Prescriptions See Medication Section Functional Status Query Response Date Recorded Mobility Status Ambulatory December 04, 2016 4:40pm Assistive Devices None December 04, 2016 4:40pm Activity Limitations None December 04, 2016 4:40pm Feeding Ability Independent December 04, 2016 4:40pm Toileting Ability Independent December 04, 2016 4:40pm Grooming Ability Independent December 04, 2016 4:40pm Dressing Ability Independent December 04, 2016 4:40pm Driving Ability Independent December 04, 2016 4:40pm Housework Ability Independent December 04, 2016 4:40pm Meal Preparation Ability Independent December 04, 2016 4:40pm Stair Climbing Ability Independent December 04, 2016 4:40pm Ability to complete ADL's impeded by No change December 04, 2016 4:40pm Cognitive/Perceptual Impairments Impaired vision December 04, 2016 4:40pm Visual Assistive Devices Glasses With patient December 04, 2016 4:40pm Preferred Method of Learning Demonstration Listening Hands on December 04, 2016 4:40pm Allergies, Adverse Reactions, Alerts Allergen Type Severity Reaction Status Last Updated clindamycin HCl Adverse Reaction Unknown Active 12/04/16 clindamycin phosphate Adverse Reaction Unknown Active 12/04/16 Clindamycin Palmitate HCl Adverse Reaction Unknown Active 12/04/16 Iron Allergy Unknown UNKNOWN; PER HISTORY Active 12/04/16 Iodine Allergy Unknown UNKNOWN; PER HISTORY Active 12/04/16 Hydrocodone Allergy Intermediate CRAZY/DIZZY Active 12/04/16 Propoxyphene Adverse Reaction Unknown DIZZINESS, CRAZY DREAMS Active 12/04 Aspirin Adverse Reaction Mild EARS RINGING Active 12/04/16 Epinephrine Allergy Unknown UNKNOWN; PER HISTORY Active 12/04/16 Ibuprofen Allergy Mild PHASES ME OUT Active 12/04/16 Omeprazole Allergy Unknown UNKNOWN; PER HISTORY Active 12/04/16 Etodolac Adverse Reaction Intermediate CONFUSION Active 12/04/16 Metoprolol Allergy Unknown UNKNOWN; PER HISTORY Active 12/04/16 Verapamil Adverse Reaction Unknown Active 12/04/16 Vancomycin Allergy Unknown HEARING LOSS Active 12/04/16 Immunizations Query Response on File Recorded Date/Time Hx Influenza Vaccination Y 2015 12/04/16 11:27am Hx Pneumococcal Vaccination Y MAY 2011 12/04/16 11:27am Hx Tetanus, Diptheria, Pertussis N/A SKIN INTACT 08/26/11 3:05pm Hx Influenza Vaccination Y 2015 12/04/16 11:27am Hx Tetanus, Diptheria, Pertussis N/A SKIN INTACT 08/26/11 3:05pm Influenza Vaccine Hx FALL 201512/05/16 1:21pm Vital Signs Acute Vital Signs Vital Response Date/Time Temperature (Fahrenheit) 96.9 deg F (96.8 - 99.1) 12/05/2016 7:46am Temperature (Calculated Celsius) 36.25543 degrees C (36.0 - 37.3) 12/05/2016 7:46am Temperature Source Axillary 12/05/2016 7:46am Pulse Rate (adult) 67 bpm (60 - 100) 12/05/2016 9:31am Respiratory Rate 18 breaths/min (10 - 20) 12/05/2016 9:31am O2 Sat by Pulse Oximetry 99 % (90 - 100) 12/05/2016 9:31am Oxygen Delivery Method Room Air 12/05/2016 7:46am Oxygen Delivery Method Room Air 12/05/2016 9:31am Oxygen Flow Rate 1.00 L/min 12/04/2016 5:30pm Blood Pressure 121/61 mm Hg 12/05/2016 7:46am Blood Pressure Source Automatic Cuff 12/05/2016 7:46am Height (Feet) 5 feet 12/04/2016 11:09am Height (Inches) 4.00 inches 12/04/2016 11:09am Weight (Kilograms) 62.000 kg 12/05/2016 7:44am Body Mass Index (BMI) 22.9 12/04/2016 11:09am Results Laboratory Results Test Name Result Units Flags Reference Collection Date/Time Result Date/ Time Comments White Blood Count 4.1 T/MM3 L 4.5-11.0 12/04/2016 11:10am 12/04/2016 11: 40am Red Blood Count 4.27 M/MM3 4.00-5.20 12/04/2016 11:12/04/2016 11: 40am Hemoglobin 11.7 GM/DL L 12-16 12/04/2016 11:12/04/2016 11:40am Hematocrit 38.3 % 36-46 12/04/2016 11:12/04/2016 11:40am Mean Corpuscular Volume 89.7 UM3 80-100 12/04/2016 11:12/04/2016 11:40am Mean Corpuscular Hemoglobin 27.4 UUG 26-34 12/04/2016 11:2016 11:40am Mean Corpuscular Hemoglobin Concent 30.5 GM/DL L 31-37 12/04/2016 11: 12/04/2016 11:40am RDW Standard Deviation 50.3 FL H 36.9-50.2 12/04/2016 11:2016 11:40am Platelet Count 230 T/MM3 130-400 12/04/2016 11:12/04/2016 11:40am Mean Platelet Volume 10.1 UM3 9.4-12.4 12/04/2016 11:12/04/2016 11 :40am Neutrophils (%) (Auto) 45.9 % 33-66 12/04/2016 11:12/04/2016 11: 40am Lymphocytes (%) (Auto) 38.7 % 23-45 12/04/2016 11:12/04/2016 11: 40am Monocytes (%) (Auto) 8.6 % 0-9.0 12/04/2016 11:12/04/2016 11:40am Eosinophils (%) (Auto) 6.1 % H 0-4 12/04/2016 11:12/04/2016 11: 40am Basophils (%) (Auto) 0.7 % 0-2 12/04/2016 11:12/04/2016 11:40am Immature Granulocyte % (Auto) 0.0 % 0.0-0.5 12/04/2016 11:2016 11:40am Absolute Neutrophils (auto) 1.9 T/MM3 1.8-7.7 12/04/2016 11:2016 11:40am Absolute Lymphocytes (auto) 1.6 T/MM3 1-4.8 12/04/2016 11:2016 11:40am Absolute Monocytes (auto) 0.4 T/MM3 0-0.8 12/04/2016 11:2016 11:40am Absolute Eosinophils (auto) 0.3 T/MM3 0-0.5 12/04/2016 11:2016 11:40am Absolute Basophils (auto) 0.0 T/MM3 0-0.2 12/04/2016 11:2016 11:40am Absolute Immature Granulocyte (auto 0.00 T/MM3 0.00-0.03 12/04/2016 11: 12/04/2016 11:40am Icterus Index < 2 0-7 12/04/2016 11:12/04/2016 11:49am Chemistry Specimen Hemolysis < 15 0-25 12/04/2016 11:12/04/2016 11:49am 0-25: Specimen Exhibited No Hemolysis. Turbidity < 20 0-20 12/04/2016 11:12/04/2016 11:49am Sodium Level 148 MEQ/L H 134-144 12/04/2016 11:12/04/2016 11:49am Potassium Level 5.0 MEQ/L 3.6-5 12/04/2016 11:12/04/2016 11:49am Chloride Level 111 MEQ/L H 98-107 12/04/2016 11:12/04/2016 11:49am Carbon Dioxide Level 23 MEQ/L 22-30 12/04/2016 11:12/04/2016 11: 49am Anion Gap 14 MEQ/L 5-15 12/04/2016 11:12/04/2016 11:49am Blood Urea Nitrogen 33.0 MG/DL H 7-17 12/04/2016 11:12/04/2016 11: 49am Creatinine 1.5 MG/DL H 0.7-1.2 12/04/2016 11:12/04/2016 11:49am BUN/Creatinine Ratio 22 RATIO 6-26 12/04/2016 11:12/04/2016 11: 49am Glomerular Filtration Rate Calc 33 12/04/2016 11:12/04/2016 11 :49am Glucose Level 103 MG/DL 65-110 12/04/2016 11:12/04/2016 11:49am Calculated Osmolality 291 MOSM/KG H 261-280 12/04/2016 11:2016 11:49am Calcium Level 9.8 MG/DL 8.4-10.2 12/04/2016 11:12/04/2016 11:49am Total Bilirubin 0.70 MG/DL 0.20-1.30 12/04/2016 11:12/04/2016 11: 49am Alkaline Phosphatase 84 U/L 38-126 12/04/2016 11:12/04/2016 11: 49am Total Protein 7.4 G/DL 6.3-8.2 12/04/2016 11:12/04/2016 11:49am Albumin 4.0 G/DL 3.5-5.0 12/04/2016 11:12/04/2016 11:49am Globulin 3.4 G/DL 2.4-3.6 12/04/2016 11:12/04/2016 11:49am Albumin/Globulin Ratio 1.2 RATIO 1.1-2.2 12/04/2016 11:12/04/2016 11:49am Aspartate Amino Transf (AST/SGOT) 21 U/L 14-36 12/04/2016 11:12/04 11:49am Alanine Aminotransferase (ALT/SGPT) 28 U/L 9-52 12/04/2016 11:09/2016 11:49am Procedures Procedure Status Date Provider(s) Inguinal hernia repair Completed 12/04/16 MARCO A BORGES MD Encounters Encounter Location Arrival/Admit Date Discharge/Depart Date Attending Provider Departed [facility] 12/04/16 10:26am 12/05/16 3 :12pm MARCO A BORGES MD
--- OUTSIDE RECORDS SUMMARY | 2016-12-16 20:55 | XMS REPORT ---
Author Author HITESH CONROY [facility] and [facility] Address Unknown Phone Unavailable Care Team Providers Care Warp Changer Name Role Phone Dr. NILSA PACE Primary [...]
--- OUTSIDE RECORDS SUMMARY | 2016-12-16 20:57 | XMS REPORT | Continuity of Care Document ---
Author Author [facility] Organization [facility] Address Unknown Phone Unavailable Allergies Active Description Code Type Severity Reaction Onset Reported/Identified Relationship to Patient Clinical Status Yes ARICEPT [id number] Drug Allergy N/A N/A Yes NKDA N/A N/A Medications Medication Packaging Start Date Stop Date Route Dosage Sig [id number] 10/04/2014 at bed-time Problems Procedures Results Encounters ACCT No. Visit Date/Time Discharge Status Pt. Type Provider Facility Loc./Unit Complaint [id number] 10/07/2013 10:14:00 10/07/2013 23 :59:59 CLS Outpatient [id number] 07/06/2013 10:16:00 07/06/2013 23 :59:59 CLS Outpatient
--- OUTSIDE RECORDS SUMMARY | 2016-12-16 21:03 | XMS REPORT ---
Author Author HITESH CONROY [facility] Address Unknown Phone Unavailable Care Team Providers Care Piling Setter Name Role Phone Dr. NILSA PACE Primary [...]
--- OUTSIDE RECORDS SUMMARY | 2016-12-16 21:04 | XMS REPORT | Continuity of Care Document ---
Author Author [facility] Organization [facility] Address Unknown Phone Unavailable Allergies Active Description Code Type Severity Reaction Onset Reported/Identified Relationship to Patient Clinical Status Yes ARICEPT [id number] Drug Allergy N/A N/A Yes NKDA N/A N/A Medications Medication Packaging Start Date Stop Date Route Dosage Sig [id number] 10/04/2014 at bed-time Problems Procedures Results Encounters ACCT No. Visit Date/Time Discharge Status Pt. Type Provider Facility Loc./Unit Complaint [id number] 10/07/2013 10:14:00 10/07/2013 23 :59:59 CLS Outpatient [id number] 07/06/2013 10:16:00 07/06/2013 23 :59:59 CLS Outpatient
--- NOTE | 2016-12-16 21:09 | ERPDOC ---
Departure Disposition Decision Date: December 16, 2016 Disposition Decision Time: 21:56 Disposition: 01 DISCHARGED HOME, SELF-CARE Impression Impression Impression: Primary Impression: Seroma Severity: Moderate Condition: Stable Seen By: Mid-level only Referrals: ESTER CALDERON MD (Family) Patient Instructions: Incision and Drainage (ED) Problems/Meds/Labs Reviewed?: Yes Medications reviewed and manag: Yes Additional Instructions: I want you to call Dr Cooney's office first thing in the morning so that he can get you into the clinic tomorrow to have the seroma drained. Take the pain medication as needed for the discomfort at home. Follow up care ordered?: Yes Mental Status: Alert HPI - Skin General General Chief Complaint: Post-Surgical Problem Stated Complaint: PAINFUL WOUND, NEEDS DRAINING Time Seen by Provider: 20:56 Source: patient Exam Limitations: no limitations HPI - Skin General Initial Comments She has a left hernia repair per Dr Cooney on December 04. Had to be evaluated in clinic last week and had some fluid drained on and then again on Saturday. It was about 20 ml each time. She recalls that the incision was flat on Saturday, 2 days ago. Overnight last night the wound has swollen up again and is more tender and has some erythema as well. She has not had any fever or chills. Has not had any drainage at all from the incision itself. Was worried to wait until tomorrow for clinic to open for reevaluation. Occurred At: home Onset: Gradual Duration: other (Over the last 2 days) Severity: moderate Location: torso (left lower abdomen/groin) Possible Cause: other (post inguinal hernia repair) Associated Symptoms: DENIES: blisters, change in skin texture, edema, fever, flushing, headache, hives, jaundice, malaise, nasal congestion, numbness, pallor , paresthesia, petechiae, rash, sore throat, swelling/mass/lumps, tingling Hx of Similar Symptoms: No Allergies: Coded Allergies: hydrocodone (Verified Allergy, Intermediate, CRAZY/DIZZY, 12/16/16) ibuprofen (Verified Allergy, Mild, PHASES ME OUT, 12/16/16) epinephrine (Verified Allergy, Unknown, UNKNOWN; PER HISTORY, 12/16/16) iodine (Verified Allergy, Unknown, UNKNOWN; PER HISTORY, 12/16/16) iron (Verified Allergy, Unknown, UNKNOWN; PER HISTORY, 12/16/16) metoprolol (Verified Allergy, Unknown, UNKNOWN; PER HISTORY, 12/16/16) omeprazole (Verified Allergy, Unknown, UNKNOWN; PER HISTORY, 12/16/16) vancomycin (Verified Allergy, Unknown, HEARING LOSS, 12/16/16) etodolac (Verified Adverse Reaction, Intermediate, CONFUSION, 12/16/16) aspirin (Verified Adverse Reaction, Mild, EARS RINGING, 12/16/16) Clindamycin Palmitate HCl (Verified Adverse Reaction, Unknown, 12/16/16) clindamycin HCl (Verified Adverse Reaction, Unknown, 12/16/16) clindamycin phosphate (Verified Adverse Reaction, Unknown, 12/16/16) propoxyphene (Verified Adverse Reaction, Unknown, DIZZINESS, CRAZY DREAMS , 12/16/16) verapamil (Verified Adverse Reaction, Unknown, 12/16/16) Past History Past Medical History Metabolic: cancer, hypercholesterolemia, hypothyroidism, other Cardiac: CAD, other Female: renal insufficiency Musculoskeletal: rheumatoid arthritis Hematologic: anemia Surgical History General: appendix, back, other Joint: carpal tunnel, hand, hip, knee, other Vaccines Hx Influenza Vaccination: Yes (2015) Hx Pneumococcal Vaccination: Yes (MAY 2011) Social History Does patient use chewing tobac: No Second Hand Exposure: No Substance Use Type: does not use Review of Systems Constitutional Constitutional: DENIES: chills, dizziness, fatigue, fever, weakness Cardiovascular Cardiac: DENIES: chest pain, orthopnea Rhythm/Rate: DENIES: irregular beat, palpitations Pulmonary Respiratory: DENIES: cough, dyspnea, sputum, tachypnea GI Upper Abdomen: DENIES: nausea, pain, vomiting Lower Abdomen: DENIES: constipation, diarrhea, pain Integumentary Skin: other (She has a well approximated incision with enid in place in the left lower groin.) Physical Exam General General Nourishment: well nourished, well developed, appears stated age, no acute distress, adult General Body Habitus: well groomed Vitals and Pain First Documented Vital Signs Date Time Temp Pulse Resp B/P Pulse Ox O2 Delivery O2 Flow Rate FiO2 12/16/16 20:53 97.8 74 20 139/64 98 Room Air Weight: Kilograms: Height (feet): 5 Height (inches): 4.00 Triage Pain Scale: RN VS reviewed by Provider: Yes Normal Exams: Neck: Full range of motion, without adenopathy, JVD, bruits or thyromegaly Chest/Resp: Clear all zuluaga, with good airflow, and symmetry bilaterally CV: Regular rate and rhythm, without murmur or gallop, Pulses 2+ all extremities, capillary refill, <2 seconds all ext., no pedal edema noted Abdomen: Bowel sounds positive, soft, non-tender, non-distended, no hepatosplenomegaly, masses or bruits noted Lymphatic: No lymphadenopathy, or lymphedema noted Neurologic: Patient is alert, and oriented Psychiatric: Patient exhibits, appropriate attention, emotion and affect Integumentary (brief) Integumentary Brief: FOUND: other (There is a well approximated incision on the left lower groin with enid in place. There is some erythema noted around the incision as well. The lateral aspect of the incision is noticable swollen and feels slightly firm. This extends away from the incision approximately 2cm in each direction. No drainage noted from the incision. This is TTP. ) Differential Diagnoses Considering: Abscess, Other (post op wound infection, hematoma, wound dehisence. ) Progress Results/Orders Orders Procedure Category Date Status Time Cbc W/Auto LAB 12/16/16 Complete Diff-Reflex Manual Bmp - Basic Metabolic LAB 12/16/16 Complete Panel Lab Results Laboratory Tests Test 12/16/16 21:21 White Blood Count 5.1T/MM3 Red Blood Count 3.78M/MM3 Hemoglobin 10.6GM/DL Hematocrit 33.4% Mean Corpuscular Volume 88.4UM3 Mean Corpuscular Hemoglobin 28.0UUG Mean Corpuscular Hemoglobin Concent 31.7GM/DL RDW Standard Deviation 48.9FL Platelet Count 387T/MM3 Mean Platelet Volume 9.5UM3 Immature Granulocyte % (Auto) 0.4% Neutrophils (%) (Auto) 50.1% Lymphocytes (%) (Auto) 35.4% Monocytes (%) (Auto) 9.8% Eosinophils (%) (Auto) 3.1% Basophils (%) (Auto) 1.2% Absolute Immature Granulocyte (auto 0.02T/MM3 Absolute Neutrophils (auto) 2.5T/MM3 Absolute Lymphocytes (auto) 1.8T/MM3 Absolute Monocytes (auto) 0.5T/MM3 Absolute Eosinophils (auto) 0.2T/MM3 Absolute Basophils (auto) 0.1T/MM3 Turbidity < 20 Sodium Level 145MEQ/L Potassium Level 4.4MEQ/L Chloride Level 111MEQ/L Carbon Dioxide Level 21MEQ/L Anion Gap 13MEQ/L Blood Urea Nitrogen 27.0MG/DL Creatinine 1.4MG/DL Glomerular Filtration Rate Calc 36 BUN/Creatinine Ratio 19RATIO Glucose Level 149MG/DL Calculated Osmolality 287MOSM/KG Calcium Level 9.4MG/DL Icterus Index < 2 Chemistry Specimen Hemolysis < 15 Progress Progress CBC and BMP today are normal. I did call and speak with Dr Thomas about the incision. He does recommend having her call Dr Cooney's office in the morning to schedule an appointment for reevaluation and drainage of the seroma. IRENE MORGAN APRN December 16, 2016 21:09
[2016-12-16 21:27] LABS: BASOPHILS # (AUTO) 0.1 T/MM3 (0-0.2); BASOPHILS % (AUTO) 1.2 % (0-2); EOSINOPHILS # (AUTO) 0.2 T/MM3 (0-0.5); EOSINOPHILS % (AUTO) 3.1 % (0-4); HCT - HEMATOCRIT 33.4 % (36-46); HGB - HEMOGLOBIN 10.6 GM/DL (12-16); IMMATURE GRANULOCYTE # (AUTO) 0.02 T/MM3 (0.00-0.03); IMMATURE GRANULOCYTE % (AUTO) 0.4 % (0.0-0.5); LYMPHOCYTES # (AUTO) 1.8 T/MM3 (1-4.8); LYMPHOCYTES % (AUTO) 35.4 % (23-45); MEAN CORPUSCULAR HGB CONC(MCHC 31.7 GM/DL (31-37); MEAN CORPUSCULAR VOLUME 88.4 UM3 (80-100); MEAN PLATELET VOLUME 9.5 UM3 (9.4-12.4); MONOCYTES # (AUTO) 0.5 T/MM3 (0-0.8); MONOCYTES % (AUTO) 9.8 % (0-9.0); NEUTROPHILS #(AUTO)-ABSOLUTE 2.5 T/MM3 (1.8-7.7); NEUTROPHILS % (AUTO) 50.1 % (33-66); RED BLOOD COUNT 3.78 M/MM3 (4.00-5.20); WBC - WHITE BLOOD COUNT 5.1 T/MM3 (4.5-11.0)
--- NOTE | 2016-12-16 21:30 | NUR ---
STATUS PT RESTING WITH EYES CLOSED. WILL ANSWER WHEN SPOKEN TO. AT SIDE. BOTH DENY NEEDS AT THIS TIME.
[2016-12-16 21:36] LABS: ANION GAP 13 MEQ/L (5-15); BUN/CREATININE RATIO 19 RATIO (6-26); CALCIUM 9.4 MG/DL (8.4-10.2); CHLORIDE 111 MEQ/L (98-107); CO2 - CARBON DIOXIDE 21 MEQ/L (22-30); CREATININE 1.4 MG/DL (0.7-1.2); GLOMERULAR FILTRATION RATE 36; GLUCOSE 149 MG/DL (65-110); POTASSIUM 4.4 MEQ/L (3.6-5); SODIUM 145 MEQ/L (134-144)
--- NOTE | 2016-12-16 22:05 | NUR ---
DEPART PT AND SPOUSE GIVEN DI FOR INCISION AND DRAINAGE AND F/U. BOTH VERBALIZE UNDERSTANDING OF DI. QUESTIONS ASKED/ANSWERED - DENIES FURTHER QUESTIONS/NEEDS AT THIS TIME. PERSONAL BELONGINGS GATHERED. PT AMBULATED/ESCORTED TO ED EXIT - GAIT STABLE, NO SIGN OF DISTRESS. SPOUSE AT SIDE.
[2016-12-16 22:14] VITALS: BP 136/63; PULSE 72; RESP 20; TEMP 97.8; O2SAT 98
== END 2016-12-16 22:05 | disposition home or self-care (01) ==
LOC: ED 20:51
DX: L76.34 Postprocedural seroma of skin and subcutaneous tissue following other procedure (principal); Y83.8 Other surgical procedures as the cause of abnormal reaction of the patient, or of later complication, without mention of misadventure at the time of the procedure
CPT/HCPCS: 36415; 80048; 85025

== ENCOUNTER 2017-05-20 23:45 | Inpatient (IN) ==
--- OUTSIDE RECORDS SUMMARY | 2017-05-21 00:05 | External Medical Summary | Referral Summary ---
:1930 Author Organization [facility], [facility], Surgery Address [address] [place] [address] Care Team Providers Name Role Phone El Yanez Primary Care Physician Encounter VC Date(s): 12/13/14 - 12/13/14 [facility], [facility], Surgery [address] [place] [address]- Discharge Diagnosis: Port-a-cath in place Discharge Disposition: 01-Home or Self Care Attending Physician: Robert Harrell MD Admitting Physician: Robert Harrell MD Referring Physician: Rhiannon Adkins MD Vital Signs No data available for this section Problem List Condition Effective Dates Status Health Status Informant Glucocorticoid deficiency(Confirmed) Active COPD(Confirmed) Active Macular degeneration (senile) Active unspec(Confirmed) Generalized osteoarthrosis, involving Active multiple sites(Confirmed) Depressive disorder, not elsewhere Active classified(Confirmed) High risk medication use(Confirmed) Active Essential hypertension Active (disorder)(Confirmed) 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) Esophageal reflux(Confirmed) Active Personal history of unspecified Active circulatory disease(Confirmed) Unspecified hypothyroidism(Confirmed) Active Malignant neoplasm of breast (female), Active unspecified site(Confirmed) Malignant neoplasm of rectosigmoid Active junction(Confirmed) Mixed hyperlipidemia(Confirmed) Active Osteoarthrosis site Active unspecified(Confirmed) Pure hypercholesterolemia(Confirmed) Active Rheumatoid arthritis(Confirmed) Active Unspecified vitamin D Active deficiency(Confirmed) Allergies, Adverse Reactions, Alerts Substance Reaction Severity Status aspirin Dizziness Active clindamycin Active EPINEPHrine Active omeprazole Dizziness Active vancomycin Active Medications Calcium 600+D 600 mg-200 intl units oral tablet 1 tabs, Oral, BID, # 600 tabs, 0 Refill(s), other reason (Rx) Start Date: 04/14/15 Status: OrderedCrestor 10 mg oral tablet 10 mg 1 tabs, Oral, Daily, # 30 tabs, 0 Refill(s) Start Date: 04/14/15 Status: Orderedescitalopram 10 mg oral tablet 10 mg 1 tabs, Oral, Daily, # 90 tabs, 0 Refill(s) Start Date: 04/14/15 Status: Orderedfolic acid 1 mg oral tablet 3 mg 3 tabs, Oral, Daily, # 270 tabs, 3 Refill(s), Pharmacy: [facility], 3 tabs Oral Daily Start Date: 06/16/15 Status: OrderedLasix 20 mg oral tablet 1 tabs, Oral, Daily, # 90 tabs, 0 Refill(s) Start Date: 04/12/14 Status: Orderedlevothyroxine 137 mcg (0.137 mg) oral tablet 1 tabs, Oral, Daily, # 90 tabs, 0 Refill(s) Start Date: 04/12/14 Status: OrderedLutein 20 mg oral tablet 40 mg 2 tabs, Oral, Daily, # 60 tabs, 0 Refill(s), other reason (Rx) Start Date: 04/14/15 Status: Orderedmethotrexate 25 mg/mL injectable solution 0.9 mL, SubCutaneous, qWeek, ON TUESDAYS. PLEASE DISPENSE LARGE VIAL, PT CANNOT USE SMALL VIALS D/THAND DEXERITY, # 10 mL, 1 Refill(s), Pharmacy: [facility], 0.9 mL SubCutaneous qWeek,Instr:ON TUESDAYS. PLEASE DISPENSE LARGE VIAL, P... Start Date: 12/08/14 Status: Orderedmiconazole 50 mg buccal tablet 50 mg 1 tabs, Buccal, QID, # 40 tabs, 0 Refill(s), Pharmacy: [facility], 1 tabs Buccal QID Start Date: 06/16/15 Status: OrderedoxyCODONE-acetaminophen 7.5 mg-325 mg oral tablet 1 tabs, Oral, q6hr, as needed for pain, # 120 tabs, 0 Refill(s) Start Date: 06/16/15 Status: Orderedpotassium chloride 20 mEq oral tablet, extended release See Instructions, TAKE 1 TABLET BY MOUTH DAILY WITH FUROSEMIDE, # 30 tabs, 2 Refill(s), eRx: [facility], TAKE 1 TABLET BY MOUTH DAILY WITH FUROSEMIDE Start Date: 04/26/14 Status: OrderedTylenol Extra Strength 500 mg, Oral, TID, 0 Refill(s) Start Date: 04/12/14 Status: OrderedVitamin C 500 mg oral tablet 1 tabs, Oral, Daily, # 90 tabs, 0 Refill(s) Start Date: 04/12/14 Status: OrderedVitamin C 500 mg oral tablet 500 mg 1 tabs, Oral, Daily, # 30 tabs, 0 Refill(s), other reason (Rx) Start Date: 04/14/15 Status: OrderedVitamin D3 1000 intl units oral tablet 1 [...] finger pinned Rt Carpal tunnel release 1Dr. [id number] inches removed Social History Social History Type Response Smoking Status Never smoker Assessment and Plan Extracted from: Title: Ambulatory Patient Education Author: Robert Harrell MD Date: 06/19 Ophthalmology Incision Care An incision is when [...] the event that your dressing becomes wet, dirty, or starts to smell, change the dressing [...] Released: 02/08/2006 Document Revised: 10/13/2012 Document Reviewed: 11/25/2011 ExitCare Patient Information 2014 [employer] No follow up information was provided. Extracted [...]
--- OUTSIDE RECORDS SUMMARY | 2017-05-21 00:06 | External Medical Summary | Referral Summary ---
:1930 Author Organization [facility], Otolaryngology Address [address] [place] [address] Care Team Providers Name Role Phone El Yanez Primary Care Physician Encounter VC Date(s): 02/08/15 - 02/08/15 [facility] Ot[facility] [address] [place] [address]- Discharge Diagnosis: Middle ear effusion Discharge Diagnosis: Bilateral hearing loss Discharge Disposition: 01-Home or Self Care Attending Physician: Amy Saravia [...] of rectosigmoid Active junction(Confirmed) Mixed hyperlipidemia(Confirmed) Active Pure hypercholesterolemia(Confirmed) Active Rheumatoid arthritis(Confirmed) Active Unspecified [...] Daily, # 270 tabs, 3 Refill(s), Pharmacy: [facility], 3 tabs Oral Daily Start Date: 07/18/15 Status: OrderedLasix 20 mg oral tablet 1 [...] 04/14/15 Status: Orderedmethotrexate 25 mg/mL injectable solution 22.5 mg 0.9 mL, SubCutaneous, qWeek, ON TUESDAYS. PLEASE DISPENSE LARGE VIAL, PT CANNOT USE SMALL VIALS D/T HAND DEXERITY, # 10 mL, 1 Refill(s), Pharmacy: [facility], 0.9 mL SubCutaneous qWeek,Instr:ON TUESDAYS. PLEASE DISPENSE LARGE... Start Date: 07/18/15 Status: Orderedmiconazole 50 mg buccal tablet 50 mg 1 tabs, Buccal, QID, # 40 tabs, 0 Refill(s), Pharmacy: [facility], 1 tabs Buccal QID Start Date: 06/16/15 Status: OrderedoxyCODONE-acetaminophen 7.5 mg-325 mg oral tablet 1 tabs, Oral, q6hr, as needed for pain, # 120 tabs, 0 Refill(s) Start Date: 06/16/15 Status: Orderedpotassium chloride 20 mEq oral tablet, extended release See Instructions, TAKE 1 TABLET BY MOUTH DAILY WITH FUROSEMIDE, # 30 tabs, 2 Refill(s), eRx: [facility], TAKE 1 TABLET BY MOUTH DAILY [...] vaccine live 09/05/07 1Result Comment: [07/18/2015] PCP [id number] Comment: [07/18/2015] PCP OFFICE Procedures Procedure Date [...] finger pinned Rt Carpal tunnel release 1Dr. [id number] inches removed Social History Social History Type Response Smoking Status Never smoker Assessment and Plan No data available for this section
--- OUTSIDE RECORDS SUMMARY | 2017-05-21 00:06 | External Medical Summary | Referral Summary ---
:1930 Author Organization [facility] Address [address] [place] [address] Care Team Providers Name Role Phone El Yanez Primary Care Physician Encounter VC Date(s): 04/14/15 - 04/14/15 [facility] [address] [place] [address]- Discharge Diagnosis: Rheumatoid arthritis Discharge Diagnosis: Generalized osteoarthrosis, involving multiple sites Discharge Diagnosis: High risk medication use Discharge Diagnosis: Depressive disorder, not elsewhere classified Discharge Diagnosis: Unspecified vitamin D deficiency Discharge Disposition: 01-Home or Self Care Attending Physician: Rhiannon Adkins MD Admitting Physician: Rhiannon Adkins MD Vital Signs Most recent to oldest [Reference Range]: 1 Temperature Oral [35.8-37.3 degC] 36.6 degC (04/14/15 9:35 AM) Peripheral Pulse Rate [60-100 bpm] 70 bpm (04/14/15 9:35 AM) Blood Pressure [90-140/60-90 mmHg] 95/56 mmHg (04/14/15 9:35 AM) Problem List Condition Effective Dates Status Health Status Informant Glucocorticoid deficiency(Confirmed) Active COPD(Confirmed) Active Macular degeneration (senile) Active unspec(Confirmed) High risk medication use(Confirmed) Active Essential hypertension Active (disorder)(Confirmed) 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) Personal history of unspecified Active circulatory disease(Confirmed) Unspecified Active hypothyroidism(Confirmed) Malignant neoplasm of breast Active (female), unspecified site(Confirmed) Malignant neoplasm of rectosigmoid Active junction(Confirmed) Mixed hyperlipidemia(Confirmed) Active Postmenopausal bone loss(Confirmed) < 10/17/15 Resolved Pure hypercholesterolemia(Confirmed) Active Depressive disorder, not elsewhere Active classified(Confirmed) Rheumatoid arthritis(Confirmed) Active Allergies, Adverse Reactions, Alerts Substance Reaction [...] Daily, # 270 tabs, 3 Refill(s), Pharmacy: [facility], 3 tabs Oral Daily Start Date: [...] # 10 mL, 1 Refill(s), Pharmacy: [facility], 0.9 mL SubCutaneous qWeek,Instr:ON TUESDAYS. PLEASE DISPENSE LARGE... Start Date: 07/18/15 Status: Orderedmiconazole 50 mg buccal tablet 50 mg 1 tabs, Buccal, QID, # 40 tabs, 0 Refill(s), Pharmacy: [facility], 1 tabs Buccal QID Start Date: [...] Status: Ordered Results Hematology Most recent to oldest [Reference Range]: 1 WBC [4.8-10.8 10*3/uL] 6.4 10*3/uL (04/14/15 11:20 AM) RBC [4.00-5.20] 3.76 *LOW* (04/14/15 11:20 AM) Hgb [12.0-16.0 gm/dL] 11.5 gm/dL *LOW* (04/14/15 11:20 AM) Hct [37.0-47.0 %] 35.9 % *LOW* (04/14/15 11:20 AM) MCV [82.0-99.0 fL] 95.5 fL (04/14/15 11:20 AM) MCH [27.0-32.0 pg] 30.6 pg (04/14/15 11:20 AM) MCHC [32.0-36.0 gm/dL] 32.0 gm/dL (04/14/15 11:20 AM) RDW [11.5-14.5 %] 13.6 % (04/14/15 11:20 AM) Platelet [150-400 10*3/uL] 213 10*3/uL (04/14/15 AM) MPV [8.8-14.8 fL] 10.5 fL (04/14/15 AM) Immature Granulocytes [0.0-1.0 %] 0.3 % (04/14/15 AM) Neutrophils [51-75 %] 59 % (04/14/15 AM) Lymphocytes [20-46 %] 23 % (04/14/15 AM) Monocytes [4-11 %] 11 % (04/14/15 AM) Eosinophils [0-4 %] 6 % *HI* (04/14/15 AM) Basophils [0-2 %] 1 % (04/14/15: AM) Neutro Absolute [1.90-7.00 10*3] 3.82 10*3 (04/14/15: AM) Lymph Absolute [0.80-3.30 10*3] 1.47 10*3 (04/14/15:20 AM) [place] Absolute [0.30-1.00 10*3] 0.69 10*3 (04/14/15: AM) Eos Absolute [0.00-0.50 10*3] 0.40 10*3 (04/14/15:20 AM) Baso Absolute [0.00-0.20 10*3] 0.03 10*3 (04/14/15: AM) Chemistry Most recent to oldest [Reference Range]: 1 Sodium Lvl [135-144 mEq/L] 143 mEq/L (04/14/15: AM) Potassium Lvl [3.5-5.2 mEq/L] 4.6 mEq/L (04/14/15 AM) Chloride [99-111 mEq/L] 108 mEq/L (04/14/15 AM) CO2 [22-31 mEq/L] 26 mEq/L (04/14/15 AM) AGAP [3-20] 9 (04/14/15 AM) BUN [10-20 mg/dL] 32 mg/dL *HI* (04/14/15 11:20 AM) Glucose Lvl [70-99 mg/dL] 100 mg/dL *HI* (04/14/15 11:20 AM) Creatinine Lvl [0.57-1.11 mg/dL] 1.65 mg/dL *HI* (04/14/15 11:20 AM) eGFR [>60 mL/min] 30 mL/min 1 *ABN* (04/14/15 1120 AM) Calcium Lvl [8.9-10.5 mg/dL] 9.9 mg/dL (04/14/15 11:20 AM) Albumin Lvl [3.4-4.8 gm/dL] 4.0 gm/dL (04/14/15 11:20 AM) Total Protein [6.2-8.1 gm/dL] 6.6 gm/dL (04/14/15 11:20 AM) Globulin [1.8-4.0 gm/dL] 2.6 gm/dL (04/14/15 11:20 AM) ALT [0-55 U/L] 11 U/L (04/14/15 11:20 AM) AST [5-34 U/L] 20 U/L (04/14/15 11:20 AM) Alk Phos [40-150 U/L] 63 U/L (04/14/15 11:20 AM) Bili Total [0.2-1.2 mg/dL] 0.4 mg/dL (04/14/15 11:20 AM) 1Result Comment: Multiply eGFR [...] vaccine live 09/05/07 1Result Comment: [07/18/2015] PCP [id number] Comment: [07/18/2015] PCP OFFICE Procedures Procedure Date [...] finger pinned Rt Carpal tunnel release 1Dr. [id number] inches removed Social History Social History Type Response Smoking Status Never smoker Assessment and Plan Extracted from: Title: Ambulatory Patient Education Author: Rhiannon Adkins MD Date: Home Health Care Immunosuppression Immunosuppression is the [...] a donor, your immune system knows that somethin g is new and unknown to your body. [...] worsen. If you forget a dose of medi cine, take it as soon as you remember [...] Document Reviewed: 06/23/2014 ExitCare Patient Information 2015 [employer]. This information is not intended to replace [...]
--- OUTSIDE RECORDS SUMMARY | 2017-05-21 00:06 | External Medical Summary | Referral Summary ---
:1930 Author Organization [facility] Address [address] [place] [address] Care Team Providers Name Role Phone El Yanez Primary Care Physician Encounter VC Date(s): 01/12/15 - 01/12/15 [facility] [address] [place] [address]- Discharge Diagnosis: Oral candidiasis Discharge Diagnosis: Rheumatoid arthritis Discharge Diagnosis: High risk medication use Discharge Diagnosis: Generalized osteoarthrosis, involving multiple sites Discharge Diagnosis: Glucocorticoid deficiency Discharge Diagnosis: CRI (chronic renal insufficiency) Discharge Disposition: 01-Home or Self Care Attending Physician: Rhiannon Adkins MD Admitting Physician: Rhiannon Adkins MD Referring Physician: Robert Rodriguez MD Vital Signs Most recent to oldest [Reference Range]: 1 Temperature Oral [35.8-37.3 degC] 36.8 degC (01/12/15 10:11 AM) Peripheral Pulse Rate [60-100 bpm] 78 bpm (01/12/15 10:11 AM) Blood Pressure [90-140/60-90 mmHg] 120/56 mmHg (01/12/15 10:11 AM) Problem List Condition Effective [...] Orderedfolic acid 1 mg oral tablet 3 tabs, Oral, Daily, 0 Refill(s) Start Date: 04/12/14 Status: OrderedLasix 20 mg oral tablet 1 [...] # 10 mL, 1 Refill(s), Pharmacy: [facility], 0.9 mL SubCutaneous qWeek,Instr:ON TUESDAYS. PLEASE DISPENSE LARGE VIAL, P... Start Date: 12/08/14 Status: OrderedoxyCODONE-acetaminophen 7.5 mg-325 mg oral tablet 1 tabs, Oral, q6hr, as needed for pain, # 120 tabs, 0 Refill(s) Start Date: 04/14/15 Status: Orderedpotassium chloride 20 mEq oral tablet, extended release See Instructions, TAKE 1 TABLET BY MOUTH DAILY WITH FUROSEMIDE, # 30 tabs, 2 Refill(s), eRx: [facility], TAKE 1 TABLET BY MOUTH DAILY [...] oldest [Reference Range]: 1 WBC [4.8-10.8 10*3/uL] 7.0 10*3/uL (01/12/15 11:43 AM) RBC [4.00-5.20 10*6/uL] 3.66 10*6/uL *LOW* (01/12/15 11:43 AM) Hgb [12.0-16.0 gm/dL] 11.0 gm/dL *LOW* (01/12/15 11:43 AM) Hct [37.0-47.0 %] 34.6 % *LOW* (01/12/15 11:43 AM) MCV [82.0-99.0 fL] 94.5 fL (01/12/15 11:43 AM) MCH [27.0-32.0 pg] 30.1 pg (01/12/15 11:43 AM) MCHC [32.0-36.0 gm/dL] 31.8 gm/dL *LOW* (01/12/15 11:43 AM) RDW [11.5-14.5 %] 16.3 % *HI* (01/12/15 11:43 AM) Platelet [150-400 10*3/uL] 184 10*3/uL (01/12/1543 AM) MPV [8.8-14.8 fL] 10.3 fL (01/12/1543 AM) Immature Granulocytes [0.0-1.0 %] 0.1 % (01/12/1543 AM) Neutrophils [51-75 %] 71 % (01/12/1543 AM) Lymphocytes [20-46 %] 19 % *LOW* (01/12/15 AM) Monocytes [4-11 %] 7 % (01/12/1543 AM) Eosinophils [0-4 %] 2 % (01/12/1543 AM) Basophils [0-2 %] 0 % (01/12/15 AM) Neutro Absolute [1.90-7.00 10*3] 5.01 10*3 (01/12/15:43 AM) Lymph Absolute [0.80-3.30 10*3] 1.33 10*3 (01/12/15:43 AM) [place] Absolute [0.30-1.00 10*3] 0.52 10*3 (01/12/15:43 AM) Eos Absolute [0.00-0.50 10*3] 0.14 10*3 (01/12/15:43 AM) Baso Absolute [0.00-0.20 10*3] 0.02 10*3 (01/12/15:43 AM) Chemistry Most recent to oldest [Reference Range]: 1 Sodium Lvl [135-144 mEq/L] 145 mEq/L *HI* (01/12/15 AM) Potassium Lvl [3.5-5.2 mEq/L] 4.2 mEq/L (01/12/15:43 AM) Chloride [99-111 mEq/L] 110 mEq/L (01/12/1543 AM) CO2 [22-31 mEq/L] 23 mEq/L (01/12/1543 AM) AGAP [3-20] 12 (01/12/15:43 AM) BUN [10-20 mg/dL] 20 mg/dL (01/12/1543 AM) Glucose Lvl [70-99 mg/dL] 84 mg/dL (01/12/15 11:43 AM) Creatinine Lvl [0.57-1.11 mg/dL] 1.71 mg/dL *HI* (01/12/15 11:43 AM) eGFR [>60 mL/min] 28 mL/min 1 *ABN* (01/12/15 11:43 AM) Calcium Lvl [8.9-10.5 mg/dL] 9.3 mg/dL (01/12/15 11:43 AM) Albumin Lvl [3.4-4.8 gm/dL] 4.0 gm/dL (01/12/15 11:43 AM) Total Protein [6.2-8.1 gm/dL] 6.5 gm/dL (01/12/15 11:43 AM) Globulin [1.8-4.0 gm/dL] 2.5 gm/dL (01/12/15 11:43 AM) ALT [0-55 U/L] 7 U/L (01/12/15 11:43 AM) AST [5-34 U/L] 18 U/L (01/12/15 11:43 AM) Alk Phos [40-150 U/L] 57 U/L (01/12/15 11:43 AM) Bili Total [0.2-1.2 mg/dL] 0.4 mg/dL (01/12/15 11:43 AM) 1Result Comment: Multiply eGFR [...] surgery2 2002 RT Breast bx & Lt 2002 Left ankle and foot fusion 2001 Knee replacement L 2000 Right hip pinning 1990 Back surgery 1989 TAMIKA BSO - Total abdominal hysterectomy and 1974 bilateral salpingo-oophorectomy Back surgery 1970 Hysterectomy 1970 Tonsillectomy 1952 Appendectomy 1950 Lt and rt breast bx with modified Mastectomy Modified radical rt breast Ring finger pinned Rt Carpal tunnel release 1Dr. [id number] inches removed Social History Social History Type Response Smoking Status Never smoker Assessment and Plan Extracted from: Title: Ambulatory Patient Education Author: Rhiannon Adkins MD Date: Family Medicine Yesenia Infection, Adult A yesenia [...] do not have symptoms or know they hav e an infection until other problems develop. Men [...] is what the infection is, there are [id number] medications that you can get. If the [...] Released: 08/29/2005 Document Revised: 10/13/2012 Document Reviewed: 12/11/2010 [facility] 2014 [place]. No follow up information was provided.
--- OUTSIDE RECORDS SUMMARY | 2017-05-21 00:06 | External Medical Summary | Referral Summary ---
:1930 Author Organization [facility] Address [address] [place] [address] Care Team Providers Name Role Phone El Yanez Primary Care Physician Encounter VC Date(s): 01/16/16 - 01/16/16 [facility] [address] [place] [address]- Discharge Diagnosis: Rheumatoid arthritis Discharge Diagnosis: Primary generalized (osteo)arthritis Discharge Diagnosis: Glucocorticoid deficiency Discharge Diagnosis: Depressive disorder, not elsewhere classified Discharge Diagnosis: High risk medication use Discharge Disposition: 01-Home or Self Care Attending Physician: Rhiannon Adkins MD Admitting Physician: Rhiannon Adkins MD Referring Physician: El Yanez MD Vital Signs Most recent to oldest [Reference Range]: 1 Temperature Oral [35.8-37.3 degC] 36.7 degC (01/16/16 9:44 AM) Peripheral Pulse Rate [60-100 bpm] 71 bpm (01/16/16 9:44 AM) Blood Pressure [90-140/60-90 mmHg] 109/58 mmHg (01/16/16 9:44 AM) Problem List Condition Effective Dates Status Health Status Informant Glucocorticoid deficiency(Confirmed) Active COPD(Confirmed) Active Macular degeneration (senile) Active unspec(Confirmed) High risk medication use(Confirmed) Active Essential hypertension Active (disorder)(Confirmed) 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) Personal history of unspecified Active circulatory disease(Confirmed) Unspecified Active hypothyroidism(Confirmed) Primary generalized Active (osteo)arthritis(Confirmed) Malignant neoplasm of breast Active (female), unspecified [...] Daily, # 270 tabs, 3 Refill(s), Pharmacy: [facility], 3 tabs Oral Daily Start Date: [...] QID, # 40 tabs, 0 Refill(s), Pharmacy: [facility], 1 tabs Buccal QID Start Date: 06/16/15 Status: OrderedoxyCODONE-acetaminophen 7.5 mg-325 mg oral tablet 1 tabs, Oral, q6hr, as needed for pain, # 120 tabs, 0 Refill(s) Start Date: 06/16/15 Status: Orderedpotassium chloride 20 mEq oral tablet, extended release See Instructions, TAKE 1 TABLET BY MOUTH DAILY WITH FUROSEMIDE, # 30 tabs, 2 Refill(s), eRx: [facility], TAKE 1 TABLET BY MOUTH DAILY WITH FUROSEMIDE Start Date: 04/26/14 Status: Orderedrivastigmine 1.5 mg oral capsule 1.5 mg 1 caps, Oral, BID, # 180 caps, 0 Refill(s) Start Date: 01/16/16 Status: OrderedTylenol Extra Strength 500 mg, Oral, [...] vaccine live 09/05/07 1Result Comment: [07/18/2015] PCP [id number] Comment: [07/18/2015] PCP OFFICE Procedures Procedure Date [...] finger pinned Rt Carpal tunnel release 1Dr. [id number] inches removed Social History Social History Type Response Smoking Status Never smoker Assessment and Plan Extracted from: Title: Office Visit Note Author: Rhianonn Adkins MD Date: 01/16/16 Assessment/Plan 1.Rheumatoid arthritis 2.Primary generalized (osteo)arthritis 3.Depressive disorder, not elsewhere classified 4.Glucocorticoid deficiency 5.High risk medication use
--- OUTSIDE RECORDS SUMMARY | 2017-05-21 00:06 | External Medical Summary | Referral Summary ---
:1930 Author Organization [facility] Address [address] [place] [address] Care Team Providers Name Role Phone El Yanez Primary Care Physician Encounter VC Date(s): 01/16/16 - 01/16/16 [facility] [address] [place] [address]- Discharge Diagnosis: Rheumatoid arthritis Discharge Diagnosis: Primary [...] Daily, # 270 tabs, 3 Refill(s), Pharmacy: [facility], 3 tabs Oral Daily Start Date: [...] DEXERITY, # 10 mL, 1 Refill(s), Pharmacy: [facility], 0.9 mL SubCutaneous qWeek,Instr:ON TUESDAYS. PLEASE DISPENSE LARGE... Start Date: 07/18/15 Status: Orderedmiconazole 50 mg buccal tablet 50 mg 1 tabs, Buccal, QID, # 40 tabs, 0 Refill(s), Pharmacy: [facility], 1 tabs Buccal QID Start Date: 06/16/15 Status: OrderedoxyCODONE-acetaminophen 7.5 mg-325 mg oral tablet 1 tabs, Oral, q6hr, as needed for pain, # 120 tabs, 0 Refill(s) Start Date: 06/16/15 Status: Orderedpotassium chloride 20 mEq oral tablet, extended release See Instructions, TAKE 1 TABLET BY MOUTH DAILY WITH FUROSEMIDE, # 30 tabs, 2 Refill(s), eRx: [facility], TAKE 1 TABLET BY MOUTH DAILY [...] vaccine live 09/05/07 1Result Comment: [07/18/2015] PCP [id number] Comment: [07/18/2015] PCP OFFICE Procedures Procedure Date [...] finger pinned Rt Carpal tunnel release 1Dr. [id number] inches removed Social History Social History Type Response Smoking Status Never smoker Assessment and Plan Extracted from: Title: Office Visit Note Author: Rhiannon Adkins MD Date: 01/16/16 Assessment/Plan 1.Rheumatoid arthritis 2.Primary generalized (osteo)arthritis 3.Depressive disorder, not elsewhere classified 4.Glucocorticoid deficiency 5.High risk medication use
--- OUTSIDE RECORDS SUMMARY | 2017-05-21 00:06 | External Medical Summary | Referral Summary ---
:1930 Author Organization [facility] Address [address] [place] [address] Care Team Providers Name Role Phone lE Yanez Primary Care Physician Encounter VC Date(s): 01/12/15 - 01/12/15 [facility] [address] [place] [address]- Discharge Diagnosis: Oral candidiasis Discharge Diagnosis: Rheumatoid [...] mL, 1 Refill(s), Pharmacy: [facility], 0.9 mL SubCutaneous qWeek,Instr:ON TUESDAYS. [...] # 30 tabs, 2 Refill(s), eRx: [facility], TAKE 1 TABLET BY MOUTH DAILY [...] Absolute [0.80-3.30 10*3] 1.33 10*3 (01/12/15:43 AM) [place] Absolute [0.30-1.00 10*3] 0.52 10*3 (01/12/15:43 AM) [...] finger pinned Rt Carpal tunnel release 1Dr. [id number] inches removed Social History Social History Type [...] is what the infection is, there are xrua-uda-woqkhmn medications that you can get. If the [...] 08/29/2005 Document Revised: 10/13/2012 Document Reviewed: 12/11/2010 [facility] Patient Information 2014 [place]. No follow up information was provided.
--- OUTSIDE RECORDS SUMMARY | 2017-05-21 00:06 | External Medical Summary | CCD ---
:1930 Author Name ROBY AMADOR Address [address] [facility] Unavailable [place], [place] [id number] Care Team Providers Name Role Phone DAWSON CUELLO Attending Physician Unavailable Vital Signs Unknown or Not Available. Allergies Allergy Code Allergy Type Reaction Status CONTRAST MEDIA, 0 Drug allergy LOW GFR, NEPHRO Active IODINE RELATED DRMelissa STATES NEVER TO HAVE CONTRAST DYE IODINE-CONTAINING 0 Drug allergy LOW GFR- NEPHRO Active DRMelissa STATES NEVER TO HAVE CONTRAST DYE Procedures Unknown or Not Available. History of Immunizations Immunization Code Date pneumococcal, unspecified 109 05/05/2011 formulation Influenza, seasonal, injectable 141 05/06/2012 Problems Problem Code Start Date Resolved Date Status CHRONIC KIDNEY [id number] Active DISEASE Results Unknown or Not Available. Active Medications Medication Code Dose Units Frequency Route Modification Start Date/Time Lasix 20MG 844378 20 MILLIGRAMS DAILY ORAL 10/06/2012 Oral Tablet 09:17 Prescription Detail 20 MILLIGRAMS ORAL DAILY Levothyroxine 581734 0.137 MILLIGRAMS DAILY ORAL 10/06/2012 Sodium 0.137MG 09:17 Oral Tablet Prescription Detail 0.137 MILLIGRAMS ORAL DAILY Lutein 20MG 959249 20 MILLIGRAMS DAILY ORAL 10/06/2012 Oral Tablet 09:17 Prescription Detail 20 MILLIGRAMS ORAL DAILY Refresh 1206813 1 EACH NEEDED OPTHALMIC 10/06/2012 Ophthalmic 09:17 Solution Prescription Detail 1 EACH OPTHALMIC NEEDED Calcitrate 227068 950 MILLIGRAMS THREE ORAL 10/06/2012 950MG Oral TIMES 09:17 Tablet DAILY Prescription Detail 950 MILLIGRAMS ORAL THREE TIMES DAILY Crestor 10MG 236170 10 MILLIGRAMS AT BEDTIME ORAL 10/06/2012 Oral Tablet 09:17 Prescription Detail 10 MILLIGRAMS ORAL AT BEDTIME Methotrexate 0258105 0.9 EACH WEEKLY INJECTION 10/06/2012 Sodium 25MG/ML 09:17 Injection Solution Prescription Detail 0.9 EACH INJECTION WEEKLY Optive 5194987 1 EACH TWICE A OPTHALMIC 10/06/2012 0.5%-0.9% DAY 09:17 Ophthalmic Solution Prescription Detail 1 EACH OPTHALMIC TWICE A DAY Tylenol Extra 82339363030 500 MILLIGRAMS NEEDED ORAL 10/06/2012 Strength 09:17 500MG Oral Capsule Prescription Detail 500 MILLIGRAMS ORAL NEEDED Vitamin C 277297 500 MILLIGRAMS DAILY ORAL 10/06/2012 500MG Oral 09:17 Tablet Prescription Detail 500 MILLIGRAMS ORAL DAILY Diltiazem HCl 206313 120 MILLIGRAMS DAILY ORAL 10/06/2012 120MG Oral 09:17 Tablet Prescription Detail 120 MILLIGRAMS ORAL DAILY Medications Administered During Visit Unknown or Not Available. Encounters Encounter Diagnosis Diagnosis Code Start Date Encounter for screening Z1231 05/06/2015 mammogram for malignant neoplasm of breast Social History Smoking Status Code Start Date End Date Never smoker [id number] Patient Decision Aids Unknown or Not Available. Discharge Instructions You were admitted to [facility] on 09/2014 with a principal diagnosis of Encounter for screening mammogram for malignant neoplasm of breast. You were discharged from [facility] on 05/06/2015. Should you have any questions [...]
--- OUTSIDE RECORDS SUMMARY | 2017-05-21 00:07 | External Medical Summary | Referral Summary ---
:1930 Author Organization [facility] Address [address] [place] [address] Care Team Providers Name Role Phone El Yanez Primary Care Physician Encounter VC Date(s): 07/18/15 - 07/18/15 [facility] [address] [place] [address]- Discharge Diagnosis: Primary generalized (osteo)arthritis Discharge Diagnosis: Shoulder pain Discharge Diagnosis: High risk medication use Discharge Diagnosis: Glucocorticoid deficiency Discharge Diagnosis: Rheumatoid arthritis Discharge Disposition: 01-Home or Self Care Attending Physician: Rhiannon Adkins MD Admitting Physician: Rhiannon Adkins MD Vital Signs Most recent to oldest [Reference Range]: 1 Temperature Oral [35.8-37.3 degC] 36.3 degC (07/18/15 9:54 AM) Peripheral Pulse Rate [60-100 bpm] 70 bpm (07/18/15 9:54 AM) Blood Pressure [90-140/60-90 mmHg] 104/50 mmHg (07/18/15 9:54 AM) Problem List Condition Effective [...] 1 Refill(s), Pharmacy: Via [facility], 0.9 mL SubCutaneous qWeek,Instr:ON TUESDAYS. PLEASE DISPENSE LARGE... Start Date: 07/18/15 Status: Orderedmiconazole 50 mg buccal tablet 50 mg 1 tabs, Buccal, QID, # 40 tabs, 0 Refill(s), Pharmacy: [facility], 1 tabs Buccal QID Start Date: 06/16/15 Status: OrderedoxyCODONE-acetaminophen 7.5 mg-325 mg oral tablet 1 tabs, Oral, q6hr, as needed for pain, # 120 tabs, 0 Refill(s) Start Date: 06/16/15 Status: Orderedpotassium chloride 20 mEq oral tablet, extended release See Instructions, TAKE 1 TABLET BY MOUTH DAILY WITH FUROSEMIDE, # 30 tabs, 2 Refill(s), eRx: [facility], TAKE 1 TABLET BY MOUTH DAILY [...] oldest [Reference Range]: 1 WBC [4.8-10.8 10*3/uL] 5.4 10*3/uL (07/18/15 9:46 AM) RBC [4.00-5.20] 3.81 *LOW* (07/18/15 9:46 AM) Hgb [12.0-16.0 gm/dL] 11.4 gm/dL *LOW* (07/18/15 9:46 AM) Hct [37.0-47.0 %] 35.6 % *LOW* (07/18/15 9:46 AM) MCV [82.0-99.0 fL] 93.4 fL (07/18/15 9:46 AM) MCH [27.0-32.0 pg] 29.9 pg (07/18/15 9:46 AM) MCHC [32.0-36.0 gm/dL] 32.0 gm/dL (07/18/15 9:46 AM) RDW [11.5-14.5 %] 14.6 % *HI* (07/18/15 9:46 AM) Platelet [150-400 10*3/uL] 222 10*3/uL (07/18/15 9:46 AM) MPV [8.8-14.8 fL] 10.5 fL (07/18/15 9:46 AM) Immature Granulocytes [0.0-1.0 %] 0.2 % (07/18/15 9:46 AM) Neutrophils [51-75 %] 60 % (07/18/15 9:46 AM) Lymphocytes [20-46 %] 21 % (07/18/15 9:46 AM) Monocytes [4-11 %] 14 % *HI* (07/18/15 9:46 AM) Eosinophils [0-4 %] 4 % (07/18/15 9:46 AM) Basophils [0-2 %] 1 % (07/18/15 9:46 AM) Neutro Absolute [1.90-7.00 10*3] 3.22 10*3 (07/18/15 9:46 AM) Lymph Absolute [0.80-3.30 10*3] 1.13 10*3 (07/18/15 9:46 AM) [place] Absolute [0.30-1.00 10*3] 0.76 10*3 (07/18/15 9:46 AM) Eos Absolute [0.00-0.50 10*3] 0.23 10*3 (07/18/15 9:46 AM) Baso Absolute [0.00-0.20 10*3] 0.04 10*3 (07/18/15 9:46 AM) Chemistry Most recent to oldest [Reference Range]: 1 Sodium Lvl [135-144 mEq/L] 142 mEq/L (07/18/15 9:46 AM) Potassium Lvl [3.5-5.2 mEq/L] 4.8 mEq/L (07/18/15 9:46 AM) Chloride [99-111 mEq/L] 110 mEq/L (07/18/15 9:46 AM) CO2 [22-31 mEq/L] 25 mEq/L (07/18/15 9:46 AM) AGAP [3-20] 7 (07/18/15 9:46 AM) BUN [10-20 mg/dL] 24 mg/dL *HI* (07/18/15 9:46 AM) Glucose Lvl [70-99 mg/dL] 85 mg/dL (07/18/15 9:46 AM) Creatinine Lvl [0.57-1.11 mg/dL] 1.38 mg/dL *HI* (07/18/15 9:46 AM) eGFR [>60 mL/min] 36 mL/min 1 *ABN* (07/18/15 9:46 AM) Calcium Lvl [8.9-10.5 mg/dL] 9.5 mg/dL (07/18/15 9:46 AM) Albumin Lvl [3.4-4.8 gm/dL] 3.8 gm/dL (07/18/15 9:46 AM) Total Protein [6.2-8.1 gm/dL] 6.6 gm/dL (07/18/15 9:46 AM) Globulin [1.8-4.0 gm/dL] 2.8 gm/dL (07/18/15 9:46 AM) ALT [0-55 U/L] 6 U/L (07/18/15 9:46 AM) AST [5-34 U/L] 16 U/L (07/18/15 9:46 AM) Alk Phos [40-150 U/L] 70 U/L (07/18/15 9:46 AM) Bili Total [0.2-1.2 mg/dL] 0.4 mg/dL (07/18/15 9:46 AM) 1Result Comment: Multiply eGFR [...] vaccine live 09/05/07 1Result Comment: [07/18/2015] PCP [id number] Comment: [07/18/2015] PCP OFFICE Procedures Procedure Date [...] finger pinned Rt Carpal tunnel release 1Dr. [id number] inches removed Social History Social History Type Response Smoking Status Never smoker Assessment and Plan No data available for this section
--- OUTSIDE RECORDS SUMMARY | 2017-05-21 00:07 | External Medical Summary ---
:1930 Author Organization [employer] Care Team Providers Name Role Phone Mateus Mancia Provider Role Unavailable Allergies, Adverse Reactions, Alerts Substance Reaction Event Type Latex Exam Gloves Info Not Available Drug Allergy Problems Problem Type Condition Code Onset Dates Condition Status Assessment Encounter for dental examination and Z01.20 Active cleaning without abnormal findings Medications No Known Medications Procedures Procedure Coding System Code Date LTD ORAL EVALUATION - PROBLEM FOCUS CPT-4 D0140 Jun 05, 2016 TRUDI TX DENTAL PAIN-MINOR PROC CPT-4 D9110 Jun 05, 2016 INTRAORL-PERIAPICAL 1 FILM 30898 CPT-4 D0220 Jun 05, 2016 Results No Known Results Summary Purpose [employer] Submission
--- OUTSIDE RECORDS SUMMARY | 2017-05-21 00:07 | External Medical Summary | Referral Summary ---
:1930 Author Organization [facility] Address [address] [place] [address] Care Team Providers Name Role Phone Ana Brice Primary Care Physician Encounter VC Date(s): 04/16/16 - 04/16/16 [facility] [address] [place] [address] [place] Discharge Diagnosis: Dementia Discharge Diagnosis: Primary generalized (osteo)arthritis Discharge Diagnosis: High risk medication use Discharge Diagnosis: Rheumatoid arthritis Discharge Disposition: 01-Home or Self Care Attending Physician: Rhiannon Adkins MD Admitting Physician: Rhiannon Adkisn MD Referring Physician: El Yanez MD Vital Signs Most recent to oldest [Reference Range]: 1 Temperature Oral [35.8-37.3 degC] 36.7 degC (04/16/16 9:57 AM) Peripheral Pulse Rate [60-100 bpm] 74 bpm (04/16/16 9:57 AM) Blood Pressure [90-140/60-90 mmHg] 118/65 mmHg (04/16/16 9:57 AM) Problem List Condition Effective [...] not elsewhere Active classified(Confirmed) Rheumatoid arthritis(Confirmed) Active Dementia(Confirmed) Active Allergies, Adverse Reactions, Alerts Substance [...] DEXERITY, # 10 mL, 1 Refill(s), Pharmacy: [facility], 0.9 mL SubCutaneous qWeek,Instr:ON TUESDAYS. PLEASE DISPENSE LARGE... Start Date: 07/18/15 Status: Orderedmiconazole 50 mg buccal tablet 50 mg 1 tabs, Buccal, QID, # 40 tabs, 0 Refill(s), Pharmacy: [facility], 1 tabs Buccal QID Start Date: 06/16/15 Status: OrderedoxyCODONE-acetaminophen 7.5 mg-325 mg oral tablet 1 tabs, Oral, q6hr, as needed for pain, # 120 tabs, 0 Refill(s), Indication: Chronic Pain Start Date: 04/16/16 Status: Orderedpotassium chloride 20 mEq oral tablet, extended release See Instructions, TAKE 1 TABLET BY MOUTH DAILY WITH FUROSEMIDE, # 30 tabs, 2 Refill(s), eRx: [facility], TAKE 1 TABLET BY MOUTH [...] oldest [Reference Range]: 1 WBC [4.8-10.8 10*3/uL] 5.8 10*3/uL (04/16/16 11:13 AM) RBC [4.00-5.20] 3.75 *LOW* (04/16/16 11:13 AM) Hgb [12.0-16.0 gm/dL] 10.4 gm/dL *LOW* (04/16/16 11:13 AM) Hct [37.0-47.0 %] 34.2 % *LOW* (04/16/16 11:13 AM) MCV [82.0-99.0 fL] 91.2 fL (04/16/16 11:13 AM) MCH [27.0-32.0 pg] 27.7 pg (04/16/16 11:13 AM) MCHC [32.0-36.0 gm/dL] 30.4 gm/dL *LOW* (04/16/16:13 AM) RDW [11.5-14.5 %] 15.2 % *HI* (04/16/16 11:13 AM) Platelet [150-400 10*3/uL] 326 10*3/uL (04/16/16 11:13 AM) MPV [8.8-14.8 fL] 10.3 fL (04/16/16 11:13 AM) Immature Granulocytes [0.0-1.0 %] 0.2 % (04/16/16:13 AM) Neutrophils [51-75 %] 55 % (04/16/16 11:13 AM) Lymphocytes [20-46 %] 26 % (04/16/16 11:13 AM) Monocytes [4-11 %] 14 % *HI* (04/16/16 11:13 AM) Eosinophils [0-4 %] 4 % (04/16/16 11:13 AM) Basophils [0-2 %] 1 % (04/16/16 11:13 AM) Neutro Absolute [1.90-7.00 10*3] 3.18 10*3 (04/16/16 11:13 AM) Lymph Absolute [0.80-3.30 10*3] 1.49 10*3 (04/16/16 11:13 AM) [place] Absolute [0.30-1.00 10*3] 0.82 10*3 (04/16/16 11:13 AM) Eos Absolute [0.00-0.50 10*3] 0.21 10*3 (04/16/16 11:13 AM) Baso Absolute [0.00-0.20 10*3] 0.06 10*3 (04/16/16 11:13 AM) Sed Rate [0-23] 59 *HI* (04/16/16 11:13 AM) Chemistry Most recent to oldest [Reference Range]: 1 Sodium Lvl [135-144 mEq/L] 143 mEq/L (04/16/16 11:13 AM) Potassium Lvl [3.5-5.2 mEq/L] 5.0 mEq/L (04/16/16 11:13 AM) Chloride [99-111 mEq/L] 112 mEq/L *HI* (04/16/16: AM) CO2 [22-31 mEq/L] 26 mEq/L (04/16/1613 AM) AGAP [3-20] 5 (04/16/16 11:13 AM) BUN [10-20 mg/dL] 30 mg/dL *HI* (04/16/16 AM) Glucose Lvl [70-99 mg/dL] 87 mg/dL (04/16/16 11:13 AM) Creatinine Lvl [0.57-1.11 mg/dL] 1.46 mg/dL *HI* (04/16/16 11: AM) eGFR [>60 mL/min] 34 mL/min 1 *ABN* (04/16/16:13 AM) Calcium Lvl [8.9-10.5 mg/dL] 9.3 mg/dL (04/16/16:13 AM) Albumin Lvl [3.4-4.8 gm/dL] 3.9 gm/dL (04/16/16 11:13 AM) Total Protein [6.0-7.6 gm/dL] 6.8 gm/dL (04/16/16:13 AM) Globulin [1.8-4.0 gm/dL] 2.9 gm/dL (04/16/16 11:13 AM) ALT [0-55 U/L] 9 U/L (04/16/16:13 AM) AST [5-34 U/L] 16 U/L (04/16/16 11:13 AM) Alk Phos [40-150 U/L] 86 U/L (04/16/16 11:13 AM) Bili Total [0.2-1.2 mg/dL] 0.3 mg/dL (04/16/16 11:13 AM) 1Result Comment: Multiply eGFR results by [...] vaccine live 09/05/07 1Result Comment: [07/18/2015] PCP [id number] Comment: [07/18/2015] PCP OFFICE Procedures Procedure Date [...] finger pinned Rt Carpal tunnel release 1Dr. Asshacy686 inches removed Social History Social History Type [...]
--- OUTSIDE RECORDS SUMMARY | 2017-05-21 00:07 | External Medical Summary | Referral Summary ---
:1930 Author Organization [facility] Address [address] [place] [address] Care Team Providers Name Role Phone El Yanez Primary Care Physician Encounter VC Date(s): 10/17/15 - 10/17/15 [facility] [address] [place] [address]- Discharge Diagnosis: Rheumatoid arthritis Discharge Diagnosis: Primary generalized (osteo)arthritis Discharge Diagnosis: Depressive disorder, not elsewhere classified Discharge Diagnosis: High risk medication use Discharge Disposition: 01-Home or Self Care Attending Physician: Rhiannon Adkins MD Admitting Physician: Rhiannon Adkins MD Vital Signs Most recent to oldest [Reference Range]: 1 Temperature Oral [35.8-37.3 degC] 36.4 degC (10/17/15 10:25 AM) Peripheral Pulse Rate [60-100 bpm] 89 bpm (10/17/15 10:25 AM) Blood Pressure [90-140/60-90 mmHg] 128/67 mmHg (10/17/15 10:25 AM) Problem List Condition Effective [...] QID, # 40 tabs, 0 Refill(s), Pharmacy: [facility], 1 tabs Buccal QID Start Date: 06/16/15 [...] oldest [Reference Range]: 1 WBC [4.8-10.8 10*3/uL] 8.4 10*3/uL (10/17/15 11:12 AM) RBC [4.00-5.20] 3.81 *LOW* (10/17/15 11:12 AM) Hgb [12.0-16.0 gm/dL] 11.2 gm/dL *LOW* (10/17/15 11:12 AM) Hct [37.0-47.0 %] 35.9 % *LOW* (10/17/15 11:12 AM) MCV [82.0-99.0 fL] 94.2 fL (10/17/15 11:12 AM) MCH [27.0-32.0 pg] 29.4 pg (10/17/15 11:12 AM) MCHC [32.0-36.0 gm/dL] 31.2 gm/dL *LOW* (10/17/15 11:12 AM) RDW [11.5-14.5 %] 14.2 % (10/17/15 11:12 AM) Platelet [150-400 10*3/uL] 251 10*3/uL (10/17/15 11:12 AM) MPV [8.8-14.8 fL] 10.6 fL (10/17/15 11:12 AM) Immature Granulocytes [0.0-1.0 %] 0.1 % (10/17/15 11:12 AM) Neutrophils [51-75 %] 66 % (10/17/15 11:12 AM) Lymphocytes [20-46 %] 17 % *LOW* (10/17/15 11:12 AM) Monocytes [4-11 %] 12 % *HI* (10/17/15 11:12 AM) Eosinophils [0-4 %] 5 % *HI* (10/17/15 11:12 AM) Basophils [0-2 %] 0 % (10/17/15 11:12 AM) Neutro Absolute [1.90-7.00 10*3] 5.56 10*3 (10/17/15 11:12 AM) Lymph Absolute [0.80-3.30 10*3] 1.46 10*3 (10/17/15 11:12 AM) [place] Absolute [0.30-1.00 10*3] 1.01 10*3 *HI* (10/17/15 11:12 AM) Eos Absolute [0.00-0.50 10*3] 0.38 10*3 (10/17/15 11:12 AM) Baso Absolute [0.00-0.20 10*3] 0.03 10*3 (10/17/15 11:12 AM) Chemistry Most recent to oldest [Reference Range]: 1 Sodium Lvl [135-144 mEq/L] 146 mEq/L *HI* (10/17/15 11:12 AM) Potassium Lvl [3.5-5.2 mEq/L] 4.7 mEq/L (10/17/15 11:12 AM) Chloride [99-111 mEq/L] 114 mEq/L *HI* (10/17/15 11:12 AM) CO2 [22-31 mEq/L] 24 mEq/L (10/17/15 11:12 AM) AGAP [3-20] 8 (10/17/15 11:12 AM) BUN [10-20 mg/dL] 29 mg/dL *HI* (10/17/15 11:12 AM) Glucose Lvl [70-99 mg/dL] 75 mg/dL (10/17/15 11:12 AM) Creatinine Lvl [0.57-1.11 mg/dL] 1.35 mg/dL *HI* (10/17/15 11:12 AM) eGFR [>60 mL/min] 37 mL/min 1 *ABN* (10/17/15 11:12 AM) Calcium Lvl [8.9-10.5 mg/dL] 9.4 mg/dL (10/17/15 11:12 AM) Albumin Lvl [3.4-4.8 gm/dL] 3.9 gm/dL (10/17/15 11:12 AM) Total Protein [6.2-8.1 gm/dL] 6.6 gm/dL (10/17/15 11:12 AM) Globulin [1.8-4.0 gm/dL] 2.7 gm/dL (10/17/15 11:12 AM) ALT [0-55 U/L] 11 U/L (10/17/15 11:12 AM) AST [5-34 U/L] 16 U/L (10/17/15 11:12 AM) Alk Phos [40-150 U/L] 79 U/L (10/17/15 11:12 AM) Bili Total [0.2-1.2 mg/dL] 0.4 mg/dL (10/17/15 11:12 AM) 1Result Comment: Multiply eGFR [...] vaccine live 09/05/07 1Result Comment: [07/18/2015] PCP [id number] Comment: [07/18/2015] PCP OFFICE Procedures Procedure Date [...] finger pinned Rt Carpal tunnel release 1Dr. [id number] inches removed Social History Social History Type Response Smoking Status Never smoker Assessment and Plan Extracted from: Title: Office Visit Note Author: Rhiannon Adkins MD Date: 10/17/15 Assessment/Plan 1.Rheumatoid arthritis 2.Primary generalized (osteo)arthritis 3.Depressive disorder, not elsewhere classified 4.High risk medication use
--- OUTSIDE RECORDS SUMMARY | 2017-05-21 00:07 | External Medical Summary | Referral Summary ---
:1930 Author Organization [facility] Address [address] [place] [address] Care Team Providers Name Role Phone El Yanez Primary Care Physician Encounter VC Date(s): 02/21/15 - 02/21/15 [facility] [address] [address] [place] [address]- Discharge Diagnosis: ETD (eustachian tube dysfunction) Discharge [...] Daily, # 270 tabs, 3 Refill(s), Pharmacy: [facility], 3 tabs Oral Daily Start Date: 07/18/15 [...] # 10 mL, 1 Refill(s), Pharmacy: [facility], 0.9 mL SubCutaneous qWeek,Instr:ON TUESDAYS. PLEASE DISPENSE LARGE... Start Date: 07/18/15 Status: Orderedmiconazole 50 mg buccal tablet 50 mg 1 tabs, Buccal, QID, # 40 tabs, 0 Refill(s), Pharmacy: [facility], 1 tabs Buccal QID Start Date: 06/16/15 Status: OrderedoxyCODONE-acetaminophen 7.5 mg-325 mg oral tablet 1 tabs, Oral, q6hr, as needed for pain, # 120 tabs, 0 Refill(s) Start Date: 06/16/15 Status: Orderedpotassium chloride 20 mEq oral tablet, extended release See Instructions, TAKE 1 TABLET BY MOUTH DAILY WITH FUROSEMIDE, # 30 tabs, 2 Refill(s), eRx: [facility], TAKE 1 TABLET BY MOUTH DAILY WITH [...] vaccine live 09/05/07 1Result Comment: [07/18/2015] PCP [id number] Comment: [07/18/2015] PCP OFFICE Procedures Procedure Date [...] finger pinned Rt Carpal tunnel release 1Dr. [id number] inches removed Social History Social History Type [...]
--- OUTSIDE RECORDS SUMMARY | 2017-05-21 00:07 | External Medical Summary | CCD ---
:1930 Author Name ROBY AMADOR Address [address] [facility] [facility] Unavailable [place], [place] [id number] Care Team Providers Name Role Phone ESTER CALDERON Attending Physician Unavailable Vital Signs Unknown or [...] Start Date Resolved Date Status CHRONIC KIDNEY 124193096 Active DISEASE Results Unknown or Not Available. Active Medications Medication Code Dose Units Frequency Route Modification Start Date/Time Lasix 20MG 002488 20 MILLIGRAMS DAILY ORAL 10/06/2012 Oral Tablet 09:17 Prescription Detail 20 MILLIGRAMS ORAL DAILY Levothyroxine 691500 0.137 MILLIGRAMS DAILY ORAL 10/06/2012 Sodium 0.137MG 09:17 Oral Tablet Prescription Detail 0.137 MILLIGRAMS ORAL DAILY Lutein 20MG 042325 20 MILLIGRAMS DAILY ORAL 10/06/2012 Oral Tablet 09:17 Prescription Detail 20 MILLIGRAMS ORAL DAILY Refresh 8762415 1 EACH NEEDED OPTHALMIC 10/06/2012 Ophthalmic 09:17 Solution Prescription Detail 1 EACH OPTHALMIC NEEDED Calcitrate 816663 950 MILLIGRAMS THREE ORAL 10/06/2012 950MG Oral TIMES 09:17 Tablet DAILY Prescription Detail 950 MILLIGRAMS ORAL THREE TIMES DAILY Crestor 10MG 807511 10 MILLIGRAMS AT BEDTIME ORAL 10/06/2012 Oral Tablet 09:17 Prescription Detail 10 MILLIGRAMS ORAL AT BEDTIME Methotrexate 3467601 0.9 EACH WEEKLY INJECTION 10/06/2012 Sodium 25MG/ML 09:17 Injection Solution Prescription Detail 0.9 EACH INJECTION WEEKLY Optive 7371740 1 EACH TWICE A OPTHALMIC 10/06/2012 0.5%-0.9% DAY 09:17 Ophthalmic Solution Prescription Detail 1 EACH OPTHALMIC TWICE A DAY Tylenol Extra 387284 500 MILLIGRAMS NEEDED ORAL 10/06/2012 Strength 09:17 500MG Oral Capsule Prescription Detail 500 MILLIGRAMS ORAL NEEDED Vitamin C 098541 500 MILLIGRAMS DAILY ORAL 10/06/2012 500MG Oral 09:17 Tablet Prescription Detail 500 MILLIGRAMS ORAL DAILY Diltiazem HCl 727939 120 MILLIGRAMS DAILY ORAL 10/06/2012 120MG Oral 09:17 Tablet Prescription Detail 120 MILLIGRAMS ORAL DAILY Medications Administered During Visit Unknown or Not Available. Encounters Encounter Diagnosis Diagnosis Code Start Date Encounter for screening Z1231 05/28/2016 mammogram for malignant neoplasm of breast Social History Smoking Status Code Start Date End Date Never smoker [id number] Patient Decision Aids Unknown or Not Available. Discharge Instructions You were admitted to [facility] on 05/28/2016 09:30 with a principal diagnosis of Encntr screen mammogram for malignant neoplasm of breas You were discharged from [facility] on 05/28/2016 09:31 Should you have any [...]
--- OUTSIDE RECORDS SUMMARY | 2017-05-21 00:07 | External Medical Summary | Referral Summary ---
:1930 Author Organization [facility] Address [address] [place] [address] Care Team Providers Name Role Phone El Yanez Primary Care Physician Encounter VC Date(s): 01/12/15 - 01/12/15 [facility] [address] [place] [address]- Discharge Diagnosis: Oral candidiasis Discharge Diagnosis: Rheumatoid [...] 10 mL, 1 Refill(s), Pharmacy: [facility], 0.9 mL SubCutaneous qWeek,Instr:ON [...] FUROSEMIDE, # 30 tabs, 2 Refill(s), eRx: [facility], TAKE 1 TABLET BY MOUTH [...] Absolute [0.80-3.30 10*3] 1.33 10*3 (01/12/15:43 AM) [place] Absolute [0.30-1.00 10*3] 0.52 10*3 (01/12/15:43 AM) [...] finger pinned Rt Carpal tunnel release 1Dr. Tnlepsa375 inches removed Social History Social History Type [...] is what the infection is, there are mtyb-chq-lobcweu medications that you can get. If the [...] 08/29/2005 Document Revised: 10/13/2012 Document Reviewed: 12/11/2010 [facility] [place] Patient Information 2014 [email or web address]. No follow up information was provided.
--- OUTSIDE RECORDS SUMMARY | 2017-05-21 00:07 | External Medical Summary | Referral Summary ---
:1930 Author Organization [facility] Address [address] [place] [address] Care Team Providers Name Role Phone El Yanez Primary Care Physician Encounter VC Date(s): 01/16/16 - 01/16/16 [facility] [address] [place] [address]- Discharge Diagnosis: Rheumatoid arthritis Discharge Diagnosis: Primary [...] Mixed hyperlipidemia(Confirmed) Active Postmenopausal bone loss(Confirmed) < 3/16 Resolved Pure hypercholesterolemia(Confirmed) Active Depressive disorder, not [...] Daily, # 270 tabs, 3 Refill(s), Pharmacy: [facility], 3 tabs Oral Daily Start Date: [...] QID, # 40 tabs, 0 Refill(s), Pharmacy: [facility], 1 tabs Buccal QID Start Date: 06/16/15 Status: OrderedoxyCODONE-acetaminophen 7.5 mg-325 mg oral tablet 1 tabs, Oral, q6hr, as needed for pain, # 120 tabs, 0 Refill(s) Start Date: 06/16/15 Status: Orderedpotassium chloride 20 mEq oral tablet, extended release See Instructions, TAKE 1 TABLET BY MOUTH DAILY WITH FUROSEMIDE, # 30 tabs, 2 Refill(s), eRx: [facility], TAKE 1 TABLET BY MOUTH DAILY [...] vaccine live 09/05/07 1Result Comment: [07/18/2015] PCP [id number] Comment: [07/18/2015] PCP OFFICE Procedures Procedure Date [...] finger pinned Rt Carpal tunnel release 1Dr. [id number] inches removed Social History Social History Type Response Smoking Status Never smoker Assessment and Plan Extracted from: Title: Office Visit Note Author: Rhiannon Adkins MD Date: 01/16/16 Assessment/Plan 1.Rheumatoid arthritis 2.Primary generalized (osteo)arthritis 3.Depressive disorder, not elsewhere classified 4.Glucocorticoid deficiency 5.High risk medication use
--- OUTSIDE RECORDS SUMMARY | 2017-05-21 00:07 | External Medical Summary | Referral Summary ---
:1930 Author Organization [facility] Address [address] [place] [address] Care Team Providers Name Role Phone El Yanez Primary Care Physician Encounter VC Date(s): 01/12/15 - 01/12/15 [facility] [address] [place] [address]- Discharge Diagnosis: Oral candidiasis Discharge Diagnosis: Rheumatoid [...] Daily, # 270 tabs, 3 Refill(s), Pharmacy: [facility], 3 tabs Oral Daily Start Date: [...] 10 mL, 1 Refill(s), Pharmacy: [facility], 0.9 mL SubCutaneous qWeek,Instr:ON TUESDAYS. PLEASE DISPENSE LARGE... Start Date: 07/18/15 Status: Orderedmiconazole 50 mg buccal tablet 50 mg 1 tabs, Buccal, QID, # 40 tabs, 0 Refill(s), Pharmacy: [facility], 1 tabs Buccal QID Start Date: 06/16/15 Status: OrderedoxyCODONE-acetaminophen 7.5 mg-325 mg oral tablet 1 tabs, Oral, q6hr, as needed for pain, # 120 tabs, 0 Refill(s) Start Date: 06/16/15 Status: Orderedpotassium chloride 20 mEq oral tablet, extended release See Instructions, TAKE 1 TABLET BY MOUTH DAILY WITH FUROSEMIDE, # 30 tabs, 2 Refill(s), eRx: [facility], TAKE 1 TABLET BY MOUTH DAILY [...] AM) MCHC [32.0-36.0 gm/dL] 31.8 gm/dL *LOW* (01/12/1543 AM) RDW [11.5-14.5 %] 16.3 % *HI* (01/12/1543 AM) Platelet [150-400 10*3/uL] 184 10*3/uL (01/12/15:43 AM) MPV [8.8-14.8 fL] 10.3 fL (01/12/15:43 AM) Immature Granulocytes [0.0-1.0 %] 0.1 % (01/12/1543 AM) Neutrophils [51-75 %] 71 % (01/12/15:43 AM) Lymphocytes [20-46 %] 19 % *LOW* (01/12/15 AM) Monocytes [4-11 %] 7 % (01/12/15:43 AM) Eosinophils [0-4 %] 2 % (01/12/15:43 AM) Basophils [0-2 %] 0 % (01/12/15:43 AM) Neutro Absolute [1.90-7.00 10*3] 5.01 10*3 (01/12/15:43 AM) Lymph Absolute [0.80-3.30 10*3] 1.33 10*3 (01/12/15:43 AM) [place] Absolute [0.30-1.00 10*3] 0.52 10*3 (01/12/15:43 AM) Eos Absolute [0.00-0.50 10*3] 0.14 10*3 (01/12/15:43 AM) Baso Absolute [0.00-0.20 10*3] 0.02 10*3 (01/12/15:43 AM) Chemistry Most recent to oldest [Reference Range]: 1 Sodium Lvl [135-144 mEq/L] 145 mEq/L *HI* (01/12/1543 AM) Potassium Lvl [3.5-5.2 mEq/L] 4.2 mEq/L (01/12/15:43 AM) Chloride [99-111 mEq/L] 110 mEq/L (01/12/15:43 AM) CO2 [22-31 mEq/L] 23 mEq/L (6/10/15 11:43 AM) AGAP [3-20] 12 (01/12/15 11:43 AM) BUN [10-20 mg/dL] 20 mg/dL (01/12/15:43 AM) Glucose Lvl [70-99 mg/dL] 84 mg/dL (01/12/15:43 AM) Creatinine Lvl [0.57-1.11 mg/dL] 1.71 mg/dL *HI* (01/12/15:43 AM) eGFR [>60 mL/min] 28 mL/min 1 *ABN* (01/12/15:43 AM) Calcium Lvl [8.9-10.5 mg/dL] 9.3 mg/dL (01/12/15:43 AM) Albumin Lvl [3.4-4.8 gm/dL] 4.0 gm/dL (01/12/15:43 AM) Total Protein [6.2-8.1 gm/dL] 6.5 gm/dL (01/12/15:43 AM) Globulin [1.8-4.0 gm/dL] 2.5 gm/dL (01/12/15:43 AM) ALT [0-55 U/L] 7 U/L (01/12/15:43 AM) AST [5-34 U/L] 18 U/L (01/12/15:43 AM) Alk Phos [40-150 U/L] 57 U/L (01/12/15:43 AM) Bili Total [0.2-1.2 mg/dL] 0.4 mg/dL (01/12/15:43 AM) 1Result Comment: Multiply eGFR results by [...] vaccine live 09/05/07 1Result Comment: [07/18/2015] PCP [id number] Comment: [07/18/2015] PCP OFFICE Procedures Procedure Date [...] hysterectomy and 1973 bilateral salpingo-oophorectomy Back surgery 1969 Hysterectomy 1970 Tonsillectomy 1952 Appendectomy 1949 Lt and rt breast bx with modified Mastectomy Modified radical rt breast Ring finger pinned Rt Carpal tunnel release 1Dr. [id number] inches removed Social History Social History Type [...] is what the infection is, there are ewep-dff-acbkzcl medications that you can get. If the [...] 08/29/2005 Document Revised: 10/13/2012 Document Reviewed: 12/11/2010 Exit[employer] Patient Information 2014 [employer]. No follow up information was provided.
--- OUTSIDE RECORDS SUMMARY | 2017-05-21 00:08 | External Medical Summary | Continuity of Care Document ---
:1930 Author Organization [facility] Allergies Active Description Code Type Severity Reaction Onset Reported/ Identified Relationship Clinical to Patient Status Yes ARICEPT 56269 Drug N/A N/A 09355 Aller 0 gy Yes NKDA N/A N/A Medications Medication Packaging Start Date Stop Date Route Dosage Sig 10/04/2014 [id number] at bed-time Problems Procedures Results Encounters ACCT No. Visit Discharge Status Pt. Type Provider Facility Loc./Unit Complaint Date/Time [id number] 10/07/2013 10/07/2013 CLS Outpatient 10:14:00 23:59:59 [id number] 07/06/2013 07/06/2013 CLS Outpatient 10:16:00 23:59:59 [id number] 07/04/2016 ACT Unknown [id number] 12:41:00 [id number] 05/03/2014 ACT Unknown [id number] 11:13:00 [id number] 02/26/2014 ACT Unknown [id number] 11:12:00 [id number] 10/26/2013 ACT Unknown [id number] 12:53:00 [id number] 09/30/2013 ACT Unknown [id number] 08:30:00 [id number] 09/22/2013 ACT Unknown [id number] 11:48:00 [id number] 08/07/2013 ACT Unknown [id number] 09:34:00 [id number] 05/21/2013 ACT Unknown [id number] 08:32:00 [id number] 08/31/2016 08/31/2016 CLS Outpatient [id number] 07:42:28 23:59:59 28 [id number] 06/05/2016 06/05/2016 DIS Outpatient [id number] 14:09:34 14:09:34 34 [id number] 06/05/2016 06/05/2016 DIS Outpatient [id number] 14:08:36 14:08:36 36 [id number] 06/05/2016 06/05/2016 DIS Outpatient [id number] 14:08:19 14:08:19 19 [id number] 05/16/2016 05/16/2016 CLS Outpatient [id number] 13:26:08 23:59:59 08 [id number] 05/16/2016 05/16/2016 CLS Outpatient [id number] 13:25:05 23:59:59 05 [id number] 04/12/2016 04/12/2016 CLS Outpatient [id number] 12:25:55 23:59:59 55 [id number] 04/12/2016 04/12/2016 CLS Outpatient [id number] 11:11:24 23:59:59 24 [id number] 04/12/2016 04/12/2016 CLS Outpatient [id number] 11:11:23 23:59:59 23 [id number] 04/12/2016 04/12/2016 CLS Outpatient [id number] 11:11:19 23:59:59 19 [id number] 04/11/2016 04/11/2016 DIS Outpatient [id number] 16:18:56 16:18:56 56 [id number] 04/11/2016 04/11/2016 DIS Outpatient [id number] 15:13:23 15:13:23 23 [id number] 04/11/2016 04/11/2016 DIS Outpatient [id number] 14:37:19 14:37:19 19 [id number] 04/11/2016 04/11/2016 DIS Outpatient [id number] 14:36:57 14:36:57 57 [id number] 04/11/2016 04/11/2016 DIS Outpatient [id number] 14:35:37 14:35:37 37 [id number] 04/11/2016 04/11/2016 DIS Outpatient [id number] 14:35:24 14:35:24 24 [id number] 04/11/2016 04/11/2016 DIS Outpatient [id number] 14:19:28 14:19:28 28 [id number] 03/26/2016 03/26/2016 ACT Outpatient [id number] 22:10:25 22:10:25 25 [id number] 03/26/2016 03/26/2016 ACT Outpatient [id number] 22:10:23 22:10:23 23 [id number] 03/26/2016 03/26/2016 ACT Outpatient [id number] 22:09:40 22:09:40 40 [id number] 03/26/2016 03/26/2016 ACT Outpatient [id number] 22:09:36 22:09:36 36 [id number] 03/26/2016 03/26/2016 ACT Outpatient [id number] 22:09:35 22:09:35 35 [id number] 03/26/2016 03/26/2016 ACT Outpatient [id number] 22:09:02 22:09:02 02 [id number] 03/26/2016 03/26/2016 ACT Outpatient [id number] 22:08:47 22:08:47 47 [id number] 04/28/2015 04/28/2015 DIS Outpatient [id number] 10:27:13 10:27:15 13 [id number] 04/15/2015 04/15/2015 DIS Outpatient [id number] 11:24:59 11:25:00 59 [id number] 04/14/2015 04/14/2015 CLS Outpatient [id number] 14:08:21 23:59:59 21 [id number] 04/14/2015 04/14/2015 CLS Outpatient [id number] 13:45:46 23:59:59 46 [id number] 04/14/2015 04/14/2015 CLS Outpatient [id number] 13:45:45 23:59:59 45 [id number] 04/14/2015 04/14/2015 CLS Outpatient [id number] 13:45:44 23:59:59 44 [id number] 04/14/2015 04/14/2015 DIS Outpatient [id number] 17:43:38 17:43:38 38 [id number] 04/14/2015 04/14/2015 DIS Outpatient [id number] 15:07:41 15:07:42 41 [id number] 08/02/2014 08/02/2014 CLS Outpatient [id number] 09:41:57 23:59:59 57 [id number] 08/02/2014 08/02/2014 CLS Outpatient [id number] 09:41:33 23:59:59 33 [id number] 08/02/2014 08/02/2014 CLS Outpatient [id number] 09:31:08 23:59:59 08 [id number] 08/02/2014 08/02/2014 DIS Outpatient [id number] 09:47:07 09:47:07 07 [id number] 08/02/2014 08/02/2014 DIS Outpatient [id number] 09:31:32 09:31:33 32 [id number] 04/13/2016 Document [id number] 16:44:41 Registrati 41 on [id number] 04/12/2016 Document [id number] 06:32:58 Registrati 58 on [id number] 04/11/2016 Document [id number] 15:15:00 Registrati on [id number] 03/26/2016 Document [id number] 16:36:25 Registrati 25 on [id number] 03/26/2016 Document [id number] 16:33:00 Registrati on [id number] 04/22/2015 Document [id number] 21:36:26 Registrati 26 on [id number] 04/15/2015 Document [id number] 10:13:30 Registrati 30 on [id number] 04/15/2015 Document [id number] 07:51:41 Registrati 41 on [id number] 04/14/2015 Document [id number] 14:29:53 Registrati on [id number] 04/14/2015 Document [id number] 14:11:00 Registrati on [id number] 04/14/2015 Document [id number] 14:10:00 Registrati on [id number] 10/04/2014 Document [id number] 12:35:00 Registrati on
--- OUTSIDE RECORDS SUMMARY | 2017-05-21 00:08 | External Medical Summary | Referral Summary ---
:1930 Author Organization [facility] Address [address] [place] [address] Care Team Providers Name Role Phone El Yanez Primary Care Physician Encounter VC Date(s): 02/08/15 - 02/08/15 [facility] [address] [place] [address]- Discharge Diagnosis: ETD (eustachian tube dysfunction) Discharge [...] Daily, # 270 tabs, 3 Refill(s), Pharmacy: [facility], 3 tabs Oral Daily Start [...] DEXERITY, # 10 mL, 1 Refill(s), Pharmacy: [facility], 0.9 mL SubCutaneous qWeek,Instr:ON TUESDAYS. PLEASE DISPENSE LARGE... Start Date: 07/18/15 Status: Orderedmiconazole 50 mg buccal tablet 50 mg 1 tabs, Buccal, QID, # 40 tabs, 0 Refill(s), Pharmacy: [facility], 1 tabs Buccal QID Start Date: 06/16/15 Status: OrderedoxyCODONE-acetaminophen 7.5 mg-325 mg oral tablet 1 tabs, Oral, q6hr, as needed for pain, # 120 tabs, 0 Refill(s) Start Date: 06/16/15 Status: Orderedpotassium chloride 20 mEq oral tablet, extended release See Instructions, TAKE 1 TABLET BY MOUTH DAILY WITH FUROSEMIDE, # 30 tabs, 2 Refill(s), eRx: [facility], TAKE 1 TABLET BY MOUTH [...] vaccine live 09/05/07 1Result Comment: [07/18/2015] PCP [id number] Comment: [07/18/2015] PCP OFFICE Procedures Procedure Date [...] finger pinned Rt Carpal tunnel release 1Dr. [id number] inches removed Social History Social History Type Response Smoking Status Never smoker Assessment and Plan No data available for this section
[2017-05-21] MEDS ORDERED: FAMOTIDINE PB 20 MG/50 ML BAG IV ONE ×2 (00:35→06:00)
[2017-05-21] MEDS ORDERED: ONDANSETRON 4 MG/2 ML INJECTION IVP PRN ×2 (00:35→19:13)
--- NOTE | 2017-05-21 00:49 | History & Physical Report ---
<Shad Matute - Last Filed: 05/21/17 00:45> History of Present Illness Date: 05/21/17 Chief complaint: pain HPI: The pt is a demented 86 yo who lives in a group home facilityin [place], [place] who fell 2 1/2 weeks ago. She was taken to the ER at that time and a X-ray and CT scan did not find any abnormalities. Since the fall she has not been ambulatory due to severe pain in the left leg and hip, and mostly lying in bed all day. Today, she was c/o chest pain and GOTTI and thus brought to the ER. In the ER, she denies any chest pain but c/o leg/ hip pain. a repeat CT scan did show a fracture in the left hip proximal to the prosthesis. The family requested to be transfered to [facility] for orthopedic evaluation. Review of Systems All systems PM: 10-point ROS was reviewed, no additional remarkable complaints except (the pt denies all pain to me, no hip or leg pain) PFSH unable to obtain due to not having records in the system and she is unable to give a history due to her dementia - Social History Smoking status: Never smoker Household members: caregiver Current occupational status: retired Medications Home Medications Medication Instructions Recorded Confirmed Type Ascorbate Calcium [Vitamin C] 500 mg PO DAILY #0 tab 12/03/16 05/21/17 History Levothyroxine Sodium 150 mcg PO DAILY #30 12/03/16 05/21/17 History Escitalopram Oxalate 1 tab PO DAILY #0 tab 12/04/16 05/21/17 History Acetaminophen [Tylenol] 2 tab PO TID 05/21/17 05/21/17 History Calcium Carbonate/Vitamin D3 1 each PO DAILY 05/21/17 05/21/17 History [Oyster Shell 500-Vit D3 200 Tb] Ferrous Sulfate [Ferosul] 60 mg PO BID 05/21/17 05/21/17 History Folic Acid [Folate] 1 tab PO DAILY 05/21/17 05/21/17 History Lansoprazole [Prevacid] 1 cap PO DAILY 05/21/17 05/21/17 History Memantine HCl [Namenda Xr] 14 mg PO DAILY 05/21/17 05/21/17 History Memantine [Namenda] 10 mg PO HS 05/21/17 05/21/17 History Multivitamin [One Daily] 1 each PO DAILY 05/21/17 05/21/17 History Mupirocin Calcium [Mupirocin] 1 applic BID 05/21/17 05/21/17 History Oxycodone/Apap 7.5/325 [Percocet 1 - 2 tab PO Q6H PRN 05/21/17 05/21/17 History 7.5/325] Pantoprazole Sodium [Protonix] 40 mg PO DAILY 05/21/17 05/21/17 History Potassium Chloride [Klor-Con M20] 20 meq PO DAILY 05/21/17 05/21/17 History Rivastigmine Tartrate 1 cap PO BID 05/21/17 05/21/17 History [Rivastigmine] Rutin/Hesp/Bioflav/C/Herb#196 1 each PO DAILY 05/21/17 05/21/17 History [Bioflex Tablet] Simvastatin [Zocor] 1 tab PO DAILY 05/21/17 05/21/17 History Vits A,C,E/Lutein/Minerals 1 each PO DAILY 05/21/17 05/21/17 History [Ocuvite with Lutein Tablet] Allergies Allergy/AdvReac Type Severity Reaction Status Date / Time hydrocodone Allergy Intermediate CRAZY/DIZZY Verified 12/16/16 21:11 ibuprofen Allergy Mild PHASES ME Verified 12/16/16 21:11 OUT epinephrine Allergy Unknown UNKNOWN; Verified 12/16/16 21:11 PER HISTORY iodine Allergy Unknown UNKNOWN; Verified 12/16/16 21:11 PER HISTORY iron Allergy Unknown UNKNOWN; Verified 12/16/16 21:11 PER HISTORY metoprolol Allergy Unknown UNKNOWN; Verified 12/16/16 21:11 PER HISTORY omeprazole Allergy Unknown UNKNOWN; Verified 12/16/16 21:11 PER HISTORY vancomycin Allergy Unknown HEARING Verified 12/16/16 21:11 LOSS etodolac AdvReac Intermediate CONFUSION Verified 12/16/16 21:11 aspirin AdvReac Mild EARS Verified 12/16/16 21:11 RINGING propoxyphene AdvReac Unknown DIZZINESS, Verified 12/16/16 21:11 CRAZY DREAMS verapamil AdvReac Unknown Verified 12/16/16 21:11 clindamycin HCl AdvReac Unknown Uncoded 12/16/16 21:11 Clindamycin Palmitate HCl AdvReac Unknown Uncoded 12/16/16 21:11 clindamycin phosphate AdvReac Unknown Uncoded 12/16/16 21:11 Exam - Constitutional Present: no acute distress - Routine Neck Exam Present: supple - Routine Respiratory Exam Present: CTA bilaterally - Routine Cardiovascular Exam Present: RRR - Routine Abdominal Exam Present: soft, normoactive bowel sounds - Routine Extremities Exam Comments: left leg shorter and bowing outward Assessment and Plan (1) Hip fracture, intertrochanteric Current visit: Yes Status: Acute DVT Prophylaxis: Lovenox GI Prophylaxis: Pepcid Resuscitation Status: Full Code Hospital Course Summary Disclaimer: The visit summary below is not to be considered part of the above Progress Note. <Sina Harrington D - Last Filed: 05/21/17 13:52> History of Present Illness Date: 05/21/17 [facility] Patient Stated Medical History Dementia Yes Other Cardiology Yes: hyperlipidemia Anemia Yes Depression Yes Post Menopausal Yes Exam Vital Signs: Temperature 97.0 F 05/21/17 07:36 Pulse Rate 83 05/21/17 07:36 Respiratory Rate 16 05/21/17 07:36 Blood Pressure 120/60 05/21/17 07:36 Pulse Oximetry 95 05/21/17 07:36 Height/Weight/BMI: Height 1.66 m Weight 63.2 kg Body Mass Index 21.8 Results - Labs CBC & Chem 7: 05/21/17 00:58 05/21/17 00:58 Assessment and Plan (1) Hip fracture, intertrochanteric Current visit: Yes Status: Acute DVT Prophylaxis: SCD's Assessment and Plan: I have independently interviewed and examined patient. Chart reviewed. Case discussed with Dr Bernstein. Reviewed above not and concur. CC: left leg pain HPI: Patient is an 86 y/o female who is admitted secondary to distal periprosthetic left hip fracture. Patient had fall about two and a half weeks ago. Seen locally for evaluation. No acute fracture identified at that time. Since then, has been having significant pain to left hip and leg, much worse with any movement. If stay still, the pain will decrease. Harder to get around due to the pain. Pain medications help some, but symptoms are persistent. Appetite has been stable. Reports bowels stable. Did not some SOA and left shoulder pain yesterday - evaluated at local ED. Repeat radiographs done to left leg due to persistent pain - found distal periprosthetic fracture. Patient transfer to [facility] for definitive orthopedic evaluation and treatment. PMHx: CAD, HDL, Pulm HTN, Adrenal insufficiency, Stage III CKD, Hypothyroidism, OA, RA, Dementia, Hx Breast CA. ALL: Multiple. Meds: See MAR SHx: . No smoke or ETOH. Retired [employer]. Sees [facility] for PCP. FHx: Not obtainable due to dementia. ROS: as in HPI. Does report left shoulder pain-point tender at this area, pain reproducible with touch. Remainder of 10 point ROS neg. Exam GEN: [id number] awake alert. Appears comfortable until tries to move. HEENT: NC/AT PERRLA EOMI MMM Neck: supple, midline. No tracheal deviation. Lungs: clear bilaterally. No crackles or wheezes. No distress on RA CV: regular rate and rhythm without murmur Ab: soft nt/nd BS decreased EXT: No c/c/e. SCD in place. Strong radial pulses. Neuro: CN II-XII intact. No focal deficits Psych: awake alert. Not agitated or restless Skin: warm and dry . Lab: Creatinine 2.1. Potassium 5.2 Assessment Left distal periprosthetic femur fracture Left leg pain due to femur fracture Fall approximately 2.5 weeks ago Gait instability secondary to femur fracture Hyperkalemia (POA) Acute kidney injury (POA) Stage III CKD Left shoulder pain CAD HDL Pulm HTN Hypothyroidism OA/RA Dementia Plan Inpatient admission at [facility] for definitive orthopedic intervention. Anticipate greater than 2 midnights of care needed. Consult with Dr Bernstein for orthopedic evaluation and surgical correction. Consult with Dr Toledo for metabolic bone evaluation secondary to her fragility fracture. Check Vit D level. NS for hydration and to help with YO. Recheck potassium prior to surgery. Control pain and nausea. Georges placed to DD due to pain with movements and YO - work to remove as soon as possible post op. Initiate SCD for DVT prevention - likely Lovenox post op. IS for pulmonary toilet. Start routine Senna Plus BID with Miralax daily to decrease risk for post op constipation. MOM and Dulcolax prn. PT/OT post op to maximize strength and functional status. Monitor blood counts post op - transfuse as indicated. Medically stable for surgery - only barrier elevated potassium. Care to return to [facility] at time of discharge from [facility]. Hospital Course Summary Disclaimer: The visit summary below is not to be considered part of the above Progress Note. Hospital Course: 05/21/17 Admission Assessment Left distal periprosthetic femur fracture Left leg pain due to femur fracture Fall approximately 2.5 weeks ago Gait instability secondary to femur fracture Hyperkalemia (POA) Acute kidney injury (POA) Stage III CKD Left shoulder pain CAD HDL Pulm HTN Hypothyroidism OA/RA Dementia Plan Inpatient admission at [facility] for definitive orthopedic intervention. Anticipate greater than 2 midnights of care needed. Consult with Dr Bernstein for orthopedic evaluation and surgical correction. Consult with Dr Toledo for metabolic bone evaluation secondary to her fragility fracture. Check Vit D level. NS for hydration and to help with YO. Recheck potassium prior to surgery. Control pain and nausea. Georges placed to DD due to pain with movements and YO - work to remove as soon as possible post op. Initiate SCD for DVT prevention - likely Lovenox post op. IS for pulmonary toilet. Start routine Senna Plus BID with Miralax daily to decrease risk for post op constipation. MOM and Dulcolax prn. PT/OT post op to maximize strength and functional status. Monitor blood counts post op - transfuse as indicated. Medically stable for surgery - only barrier elevated potassium. Care to return to [facility] at time of discharge from [facility]
[2017-05-21 02:11] VITALS: BMI 21.8
[2017-05-21] MEDS: NS 1,000 ML IV SCH ×6 (03:24→21:11)
[2017-05-21] MEDS: HYDROMORPHONE 2 MG/ML INJECTION IVP PRN ×2 (05:17→21:31)
[2017-05-21] MEDS ORDERED: TRANEXAMIC ACID 1,000 MG in NS 100 ML IV ONE ×2 (06:00→07:00)
[2017-05-21] MEDS ORDERED: ACETAMINOPHEN 500 MG TABLET PO ONE (06:00)
[2017-05-21] MEDS ORDERED: ONDANSETRON 4 MG/2 ML INJECTION IVP ONE (06:00)
[2017-05-21] MEDS ORDERED: METOCLOPRAMIDE 10mg/2ml INJECTION IVP ONE (06:00)
[2017-05-21] MEDS ORDERED: NOZIN NASAL SWAB NAS ONE (06:00)
[2017-05-21] MEDS ORDERED: ENOXAPARIN 60 MG/0.6 ML INJECTION SQ SCH (09:00)
--- NOTE | 2017-05-21 09:17 | Ultrasound Report ---
Indication: r/o DVT PROCEDURE: US venous doppler LE LT: Encounter: Initial Comparison: None Technique: Color Doppler duplex and grayscale sonographic imaging of the left lower extremity was performed. Findings: There is no evidence for acute deep venous thrombosis in the left thigh. Specifically, serial graded compression was performed from the inguinal ligament to the popliteal bifurcation, on the left thigh, demonstrating appropriate compressibility of the deep venous system. In addition, color and pulsed Doppler demonstrate appropriate spontaneous flow, variation with respiration, and augmentation with calf compression. At the ankle, normal flow is identified in the posterior tibial veins; these vessels are also normal in caliber. Impression: No evidence of acute DVT in the left lower limb. .
[2017-05-21] MEDS ORDERED: EPINEPHrine PF 0.25 MG, BUPIVACAINE 0.25% PF 30 ML, MORPHINE SULFATE 15 MG in NS 30 ML OPSITE ONE (13:00)
[2017-05-21] MEDS ORDERED: SALINE FLUSH 10ml SYRINGE IV PRN (13:04)
[2017-05-21] MEDS ORDERED: BISACODYL 10 MG SUPPOSITORY RECTALLY PRN (13:21)
--- NOTE | 2017-05-21 13:23 | Orthopedic Consult Note ---
Orthopedic Consultation HPI - Consultation Info Consult Date: 05/21/17 Attending Physician: Sina Harrington MD Consult Reason: fracture - History of Present Illness 86 yo lady who had a left chidi arthroplasty in 2010 for a hip fracture. She suffered multiple dislocations and was eventually revised to a total hip with locking cup system in August 2011. Shes done well since then but unfortunately fell May 04 and developed a periprosthetic fx of the left proximal femur. She was treated with non-wt bearing and conservative management but has remained very painful and not able to ambulate. Xrays were re-taken and show the stem has subsided into the femoral canal resulting marked shortening of the leg. Due to her pain and xray findings, we will plan to proceed with a left total hip revision pending medical clearance. Review of Systems ROS unobtainable: due to dementia PFS Patient Stated Medical History Dementia Yes Other Cardiology Yes: hyperlipidemia Anemia Yes Depression Yes Post Menopausal Yes Medical History Updates: Hypothyroidism. CAD. Hyperlipidemia. RA. Hx breast and colon CA. Surgical History: Heart cath Aug 2010. Appy 1960s. Hyst . CTR 1983. Fusion rt ring finger 1989. Lt breast bx. Back surgery 1989. Pinning right hip 1990. Eventual R SALLIE. R TKA. Rt breast bx- Modified mastectomy 2003. Colon CA with colon resection 2003. Lt ankle fusion with post op infection requiring wound vac. Left hip chidi arthroplasty 2010 with revision to locking SALLIE 2011. Family History Updates: F age 67, Epilepsy. M age 76, Breast CA. Sister with Breast c mets. Sister with colon CA. - Social History Smoking status: Never smoker Medications Home Medications Medication Instructions Recorded Confirmed Type Ascorbate Calcium [Vitamin C] 500 mg PO DAILY #0 tab 12/03/16 05/21/17 History Levothyroxine Sodium 150 mcg PO DAILY #30 12/03/16 05/21/17 History Escitalopram Oxalate 1 tab PO DAILY #0 tab 12/04/16 05/21/17 History Acetaminophen [Tylenol] 2 tab PO TID 05/21/17 05/21/17 History Calcium Carbonate/Vitamin D3 1 each PO DAILY 05/21/17 05/21/17 History [Oyster Shell 500-Vit D3 200 Tb] Ferrous Sulfate [Ferosul] 60 mg PO BID 05/21/17 05/21/17 History Folic Acid [Folate] 1 tab PO DAILY 05/21/17 05/21/17 History Lansoprazole [Prevacid] 1 cap PO DAILY 05/21/17 05/21/17 History Memantine HCl [Namenda Xr] 14 mg PO DAILY 05/21/17 05/21/17 History Memantine [Namenda] 10 mg PO HS 05/21/17 05/21/17 History Multivitamin [One Daily] 1 each PO DAILY 05/21/17 05/21/17 History Mupirocin Calcium [Mupirocin] 1 applic BID 05/21/17 05/21/17 History Oxycodone/Apap 7.5/325 [Percocet 1 - 2 tab PO Q6H PRN 05/21/17 05/21/17 History 7.5/325] Pantoprazole Sodium [Protonix] 40 mg PO DAILY 05/21/17 05/21/17 History Potassium Chloride [Klor-Con M20] 20 meq PO DAILY 05/21/17 05/21/17 History Rivastigmine Tartrate 1 cap PO BID 05/21/17 05/21/17 History [Rivastigmine] Rutin/Hesp/Bioflav/C/Herb#196 1 each PO DAILY 05/21/17 05/21/17 History [Bioflex Tablet] Simvastatin [Zocor] 1 tab PO DAILY 05/21/17 05/21/17 History Vits A,C,E/Lutein/Minerals 1 each PO DAILY 05/21/17 05/21/17 History [Ocuvite with Lutein Tablet] Allergies Allergy/AdvReac Type Severity Reaction Status Date / Time hydrocodone Allergy Intermediate CRAZY/DIZZY Verified 12/16/16 21:11 ibuprofen Allergy Mild PHASES ME Verified 12/16/16 21:11 OUT epinephrine Allergy Unknown UNKNOWN; Verified 12/16/16 21:11 PER HISTORY iodine Allergy Unknown UNKNOWN; Verified 12/16/16 21:11 PER HISTORY iron Allergy Unknown UNKNOWN; Verified 12/16/16 21:11 PER HISTORY metoprolol Allergy Unknown UNKNOWN; Verified 12/16/16 21:11 PER HISTORY omeprazole Allergy Unknown UNKNOWN; Verified 12/16/16 21:11 PER HISTORY vancomycin Allergy Unknown HEARING Verified 12/16/16 21:11 LOSS etodolac AdvReac Intermediate CONFUSION Verified 12/16/16 21:11 aspirin AdvReac Mild EARS Verified 12/16/16 21:11 RINGING propoxyphene AdvReac Unknown DIZZINESS, Verified 12/16/16 21:11 CRAZY DREAMS verapamil AdvReac Unknown Verified 12/16/16 21:11 clindamycin HCl AdvReac Unknown Uncoded 12/16/16 21:11 Clindamycin Palmitate HCl AdvReac Unknown Uncoded 12/16/16 21:11 clindamycin phosphate AdvReac Unknown Uncoded 12/16/16 21:11 Orthopedic Exam Vital signs: Temperature 97.0 F 05/21/17 07:36 Pulse Rate 83 05/21/17 07:36 Respiratory Rate 16 05/21/17 07:36 Blood Pressure 120/60 05/21/17 07:36 Pulse Oximetry 95 05/21/17 07:36 - Constitutional General Appearance: Present: alert. Absent: orientated x3 - Respiratory Exam Present: non-labored - Extremities Exam Present: pulses intact, normal capillary refill. Absent: calf tenderness - Hip Exam left Hip Exam: Present: tender over trochanter, abnormal rotation, painful PROM, other (Shortened and externally rotated.). Absent: alignment normal - Integumentary Exam Present: pink, warm, dry - Neurological Exam Present: no deficits - Psychiatric Exam Present: alert. Absent: oriented - Labs Result Diagrams: 05/21/17 00:58 05/21/17 00:58 Abnormal lab results 05/21/17 05/21/17 Range/Units 00:58 00:58 RBC 3.50 L (4.00-5.20) M/MM3 Hgb 9.5 L (12-16) GM/DL Hct 30.4 L (36-46) % RDW Std Deviation 53.2 H (36.9-50.2) FL MPV 9.1 L (9.4-12.4) UM3 Neut % (Auto) 71.0 H (33-66) % Lymph % (Auto) 14.0 L (23-45) % Eos % (Auto) 6.0 H (0-4) % Eos # (Auto) 0.6 H (0-0.5) T/MM3 Potassium 5.2 H (3.6-5) MEQ/L Chloride 112 H (98-107) MEQ/L Carbon Dioxide 21 L (22-30) MEQ/L BUN 41.0 H (7-17) MG/DL Creatinine 2.1 H (0.7-1.2) MG/DL Calculated Osmolality 284 H (261-280) MOSM/KG H & H 05/21/17 Range/Units 00:58 Hgb 9.5 L (12-16) GM/DL Hct 30.4 L (36-46) % Coagulation 05/21/17 Range/Units 00:58 INR 1.21 (0.99-1.21) Impression and Recommendation (1) Periprosthetic fracture around internal prosthetic left hip joint, initial encounter Current visit: Yes Status: Acute Dr Bernstein saw and examined the patient today. Family was present. Discussed the injury and treatment options. Pt has not done well with conservative treatment and remains very painful. Will plan surgical revision of the left hip for treatment of periprosthetic fx. Risk vs benefits and possible complications, including , were discussed with family. Questions were answered to their satisfaction. Due to severe dementia, the pt was unable to participate in surgical decision making. Hospital Course Summary Disclaimer: The visit summary below is not to be considered part of the above Progress Note.
[2017-05-21] MEDS ORDERED: FUROSEMIDE 20 MG/2 ML INJECTION IVP ONE (14:19)
[2017-05-21] MEDS ORDERED: BUPIVACAINE 0.25% IJ ONE (15:00)
[2017-05-21] MEDS ORDERED: KETOROLAC IJ ONE (15:00)
[2017-05-21] MEDS ORDERED: CEFAZOLIN 2 G in NS 100 ML IV SCH (15:00)
[2017-05-21] MEDS ORDERED: NS IJ ONE (15:00)
[2017-05-21] MEDS ORDERED: KETAMINE 500 MG/10 ML INJECTION ONE (15:18)
[2017-05-21] MEDS ORDERED: FentaNYL 100 MCG/2 ML INJECTION ONE (15:18)
[2017-05-21] MEDS ORDERED: MIDAZOLAM 2mg/2ml INJECTION ONE (15:18)
[2017-05-21] MEDS ORDERED: PROPOFOL 500 MG/50 ML VIAL IV ONE (15:24)
[2017-05-21] MEDS ORDERED: EPHEDRINE 50mg/ml INJECTION ONE (16:17)
--- NOTE | 2017-05-21 16:22 | Anesthesia Preoperative Report ---
Anesthesia Preoperative Record - Date and Time Date: 05/21/17 Preoperative Diagnosis: Left hip fx Proposed Procedure: left hip revision NPO Since Date: 05/20/17 NPO Since Time: 23:00 Allergies/Adverse Reactions: Allergies Allergy/AdvReac Type Severity Reaction Status Date / Time hydrocodone Allergy Intermediate CRAZY/DIZZY Verified 12/16/16 21:11 ibuprofen Allergy Mild PHASES ME Verified 12/16/16 21:11 OUT epinephrine Allergy Unknown UNKNOWN; Verified 12/16/16 21:11 PER HISTORY iodine Allergy Unknown UNKNOWN; Verified 12/16/16 21:11 PER HISTORY iron Allergy Unknown UNKNOWN; Verified 12/16/16 21:11 PER HISTORY metoprolol Allergy Unknown UNKNOWN; Verified 12/16/16 21:11 PER HISTORY omeprazole Allergy Unknown UNKNOWN; Verified 12/16/16 21:11 PER HISTORY vancomycin Allergy Unknown HEARING Verified 12/16/16 21:11 LOSS etodolac AdvReac Intermediate CONFUSION Verified 12/16/16 21:11 aspirin AdvReac Mild EARS Verified 12/16/16 21:11 RINGING propoxyphene AdvReac Unknown DIZZINESS, Verified 12/16/16 21:11 CRAZY DREAMS verapamil AdvReac Unknown Verified 12/16/16 21:11 clindamycin HCl AdvReac Unknown Uncoded 12/16/16 21:11 Clindamycin Palmitate HCl AdvReac Unknown Uncoded 12/16/16 21:11 clindamycin phosphate AdvReac Unknown Uncoded 12/16/16 21:11 - Vital Signs Vital Signs: Temperature 97.0 F 05/21/17 07:36 Pulse Rate 89 05/21/17 15:02 Respiratory Rate 16 05/21/17 07:36 Blood Pressure 120/60 05/21/17 07:36 Pulse Oximetry 95 05/21/17 07:36 Height and Weight: Height 5 ft 5.5 in Weight 63.2 kg Body Mass Index 21.8 - Medications Inpatient Medications: Current Medications Acetaminophen (Tylenol) 650 mg PO TID SHAAN Ascorbic Acid (Vitamin C) 500 mg PO DAILY SHAAN Bisacodyl (Dulcolax) 10 mg RECTALLY DAILY PRN PRN Reason: Constipation Calcium/Vitamin D (Os Silviano-D 500) 1 tab PO DAILY SHAAN Escitalopram Oxalate (Lexapro) 10 mg PO DAILY SHAAN Ferrous Sulfate (Feosol) 324 mg PO BIDWM SHAAN Folic Acid (Folate) 1 mg PO DAILY SHAAN Hydromorphone HCl (Dilaudid) 0.5 mg IVP Q3H PRN PRN Reason: Pain Last Admin: 05/21/17 05:17 Dose: 0.5 mg Sodium Chloride (Normal Saline) 1,000 mls @ 75 mls/hr IV .[id number] SHAAN Last Admin: 05/21/17 03:24 Dose: 75 mls/hr Bupivacaine HCl 30 ml/Ketorolac Tromethamine 60 mg/Sodium Chloride 62 mls @ 1 mls/hr IJ INTRAOP ONE PRN Reason: Protocol Stop: 05/24/17 04:59 Cefazolin Sodium 2 g/ Sodium (Chloride) 100 mls @ 200 mls/hr IV O SHAAN Sodium Chloride (Normal Saline) 1,000 mls @ 50 mls/hr IV .Q20H SHAAN Last Admin: 05/21/17 15:04 Dose: 50 mls/hr Levothyroxine Sodium (Synthroid) 150 mcg PO ACB SHAAN Magnesium Hydroxide (Mom) 30 ml PO DAILY PRN PRN Reason: Constipation Multivitamins/Minerals (Vision) 1 tab PO DAILY [facility] Ondansetron HCl (Zofran) 4 mg IVP Q6H PRN PRN Reason: Nausea &/or vomiting Polyethylene Glycol (Miralax) 17 gm PO DAILY [facility] Senna/Docusate Sodium (Senna Plus Tablet) 1 tab PO BID [facility] Sodium Chloride (Iv Flush) 10 - 80 ml IV PRN PRN PRN Reason: Flushing Home Medications: Home Medications Medication Instructions Recorded Confirmed Type Ascorbate Calcium [Vitamin C] 500 mg PO DAILY #0 tab 12/03/16 05/21/17 History Levothyroxine Sodium 150 mcg PO DAILY #30 12/03/16 05/21/17 History Escitalopram Oxalate 1 tab PO DAILY #0 tab 12/04/16 05/21/17 History Acetaminophen [Tylenol] 2 tab PO TID 05/21/17 05/21/17 History Calcium Carbonate/Vitamin D3 1 each PO DAILY 05/21/17 05/21/17 History [Oyster Shell 500-Vit D3 200 Tb] Ferrous Sulfate [Ferosul] 60 mg PO BID 05/21/17 05/21/17 History Folic Acid [Folate] 1 tab PO DAILY 05/21/17 05/21/17 History Lansoprazole [Prevacid] 1 cap PO DAILY 05/21/17 05/21/17 History Memantine HCl [Namenda Xr] 14 mg PO DAILY 05/21/17 05/21/17 History Memantine [Namenda] 10 mg PO HS 05/21/17 05/21/17 History Multivitamin [One Daily] 1 each PO DAILY 05/21/17 05/21/17 History Mupirocin Calcium [Mupirocin] 1 applic BID 05/21/17 05/21/17 History Oxycodone/Apap 7.5/325 [Percocet 1 - 2 tab PO Q6H PRN 05/21/17 05/21/17 History 7.5/325] Pantoprazole Sodium [Protonix] 40 mg PO DAILY 05/21/17 05/21/17 History Potassium Chloride [Klor-Con M20] 20 meq PO DAILY 05/21/17 05/21/17 History Rivastigmine Tartrate 1 cap PO BID 05/21/17 05/21/17 History [Rivastigmine] Rutin/Hesp/Bioflav/C/Herb#196 1 each PO DAILY 05/21/17 05/21/17 History [Bioflex Tablet] Simvastatin [Zocor] 1 tab PO DAILY 05/21/17 05/21/17 History Vits A,C,E/Lutein/Minerals 1 each PO DAILY 05/21/17 05/21/17 History [Ocuvite with Lutein Tablet] - Medical History Cardiovascular: Reports: Coronary Artery Disease, Hypertension, High Cholesterol , Other (pulmonary HTN hx) Renal/Endocrine: Reports: Thyroid Disease, Other (acute kidney injury, stage 3) Other History: Reports: Anesthesia Reactions (low BP hx with anesthesia) - Surgical History HEENT Surgeries: Reports: Nose Surgery GI Surgery/Treatments: Reports: Appendectomy Musculoskeletal Surgery/Tx: Reports: Other (back surgery) Reproductive Surgery/Treatment: Reports: Mastectomy (right) Anesthesia Reactions: None Hx Family Anesthesia Reaction: No History of Motion Sickness: No - Social History Smoking Status: Never smoker Hx Chewing Tobacco Use: No Second Hand Exposure: No Substance Use Type: does not use - Pertinent Findings Laboratory: CBC and BMP 05/21/17 00:58 05/21/17 13:42 BMP 05/21/17 05/21/17 00:58 13:42 Sodium 142 142 Potassium 5.2 H 5.2 H Chloride 112 H 115 H Carbon Dioxide 21 L 20 L BUN 41.0 H 31.0 H Creatinine 2.1 H 1.8 H D Glucose 110 84 Calcium 8.4 8.2 L Liver Function 05/21/17 Range/Units 13:42 Total Bilirubin 0.20 (0.20-1.30) MG/DL AST 26 (14-36) U/L ALT 34 (9-52) U/L Alkaline Phosphatase 102 (38-126) U/L Albumin 2.8 L (3.5-5.0) G/DL Urine 05/21/17 Range/Units 03:22 Urine Color Yellow (YELLOW) Urine Clarity Clear Urine pH 5.5 (5.0-8.0) Ur Specific [place] 1.015 (1.015-1.025) Urine Protein Negative (NEGATIVE) Urine Glucose (UA) Negative (NEGATIVE) EKG: Sinus Rhythm - Physical Exam Respiratory Exam: Present: lungs clear, bilateral breath sounds equal Cardiovascular Exam: Present: regular rate and rhythm - Airway Assessment Mallampati Score: III TMD: 3 Fingerbreadths Neck Extension: poor Overall Assessment: no airway concerns - ASA ASA Score: 4 - Plan Anesthesia: General Inhalation Gases - Discussion Discussion: Discussed risks/options/alternatives of anesthesia and questions answered. Patient consents. Nursing pain assessment noted. Present for Discussion: spouse Attestation Statement: Prior to the delivery of any anesthetic medication, I examined the patient, developed the plan, obtained the patient's consent and discussed the risk and benefits of the procedure with the patient/guardian. - Additional Information Seen by Anesthesia: Yes
[2017-05-21] MEDS ORDERED: SALINE FLUSH 10ml SYRINGE ONE ×2 (16:35→16:44)
[2017-05-21] MEDS ORDERED: PHENYLEPHRINE INJ 10 MG/ML VIAL IV ONE (16:35)
[2017-05-21] MEDS: TRANEXAMIC ACID 1,000 MG in NS 100 ML TOP ONE (18:00)
[2017-05-21] MEDS ORDERED: HYDROMORPHONE 2 MG/ML INJECTION IVP PRN (19:13)
[2017-05-21] MEDS ORDERED: ACETAMINOPHEN IV 1,000 MG/100 ML VIAL IV ONE (19:17)
--- NOTE | 2017-05-21 19:34 | Anesthesia Postoperative Note ---
- Date and Time Date: 05/21/17 Time: 19:32 - Status Patient Participated in Evaluation: Patient Participated in Person (dementia- minimal responses) Vital Signs: Temperature 97.0 F 05/21/17 07:36 Pulse Rate 92 05/21/17 19:07 Respiratory Rate 16 05/21/17 07:36 Blood Pressure 120/60 05/21/17 07:36 Pulse Oximetry 95 05/21/17 07:36 Respiratory Function: Airway Patent Cardiovascular Function: Regular Pulse EKG: Sinus Rhythm Mental Status: Alert and Oriented (appears to be at baseline, minimal verbal responses) Pain Intensity: 0 (sleeping without grimaces, but arouses easily) Hydration: IV Infusing Complications During Recover: None Apparent - Follow-Up Instructions Instructions: Per Surgeon
[2017-05-21] MEDS ORDERED: NS 1,000 ML IV SCH (20:59)
[2017-05-21] MEDS: ACETAMINOPHEN 325 MG TABLET PO SCH ×2 (21:13→21:28)
[2017-05-21] MEDS: FERROUS SULFATE 324 MG TABLET PO SCH (21:14)
[2017-05-21] MEDS ORDERED: NS 1,000 ML IV ONE (22:00)
[2017-05-21] MEDS: SENNA + DOCUSATE TABLET PO SCH (22:09)
[2017-05-21] MEDS: CEFAZOLIN 2 G in NS 100 ML IV SCH (23:39)
[2017-05-22] MEDS: NS 1,000 ML IV SCH ×4 (00:23→11:14)
[2017-05-22] MEDS: Oxycodone *IR* 5 MG TABLET PO PRN ×3 (00:49→18:23)
[2017-05-22] MEDS: HYDROMORPHONE 2 MG/ML INJECTION IVP PRN (04:53)
[2017-05-22] MEDS: CEFAZOLIN 2 G in NS 100 ML IV SCH (06:18)
[2017-05-22] MEDS ORDERED: LEVOTHYROXINE 150 MCG TABLET PO SCH (06:30)
--- NOTE | 2017-05-22 08:06 | Remote Fluorsocopy Report ---
Indication: LEFT HIP REVISION PROCEDURE: RF hip LT 1 view: Encounter: Initial Comparison: May 06, 2011 Findings: Three fluoroscopic spot images show revision of the left hip prosthesis. Two distal cerclage wires. Impression: Fluoroscopy as above. Fluoroscopy time is 44.1 seconds. Fluoroscopy dose is 557.4 mRad. .
--- NOTE | 2017-05-22 08:27 | Orthopedic Progress Note ---
Date: Subjective/Severity of Illness: Santa reports pain in her left thigh this AM. Denies having CP but feel a little SOA. Sats 96%. Does not appear in resp distress of any kind. Hgb down to 7.7 and K+ at 5.3 . Renal function remains stable. No other concerns at this time. Orthopedic Objective PO Vital signs: Temperature 98.0 F 05/22/17 08:08 Pulse Rate 87 05/22/17 08:08 Respiratory Rate 18 05/22/17 08:08 Blood Pressure 103/56 05/22/17 08:08 Pulse Oximetry 96 05/22/17 08:08 Height and Weight: Height 5 ft 5.5 in Weight 145 lb 8.081 oz Body Mass Index 21.8 - Constitutional General Appearance: Present: alert, mild distress (With movement of the leg.) - Respiratory Exam Present: non-labored - Surgical Site Incision: dressing intact, no drainage - Integumentary Exam Present: pink, warm, dry - Neurological Exam Present: no deficits (Had an ankle fusion but moves the toes well.) - Psychiatric Exam Present: alert - Labs Result Diagrams: 05/22/17 04:22 05/22/17 04:22 Abnormal lab results 05/21/17 05/21/17 05/21/17 Range/Units 13:42 13:42 13:42 RBC (4.00-5.20) M/MM3 Hgb (12-16) GM/DL Hct (36-46) % MCHC (31-37) GM/DL RDW Std Deviation (36.9-50.2) FL Neut % (Auto) (33-66) % Lymph % (Auto) (23-45) % [place] % (Auto) (0-9.0) % Lymph # (Auto) (1-4.8) T/MM3 [place] # (Auto) (0-0.8) T/MM3 Abs Immat Gran (auto) (0.00-0.03) T/MM3 INR 1.24 H (0.99-1.21) Potassium 5.2 H (3.6-5) MEQ/L Chloride 115 H (98-107) MEQ/L Carbon Dioxide 20 L (22-30) MEQ/L BUN 31.0 H (7-17) MG/DL Creatinine 1.8 H D (0.7-1.2) MG/DL Glucose (65-110) MG/DL Calcium 8.2 L (8.4-10.2) MG/DL Total Protein 5.7 L (6.3-8.2) G/DL Albumin 2.8 L (3.5-5.0) G/DL Albumin/Globulin Ratio 1.0 L (1.1-2.2) RATIO TSH (0.47-4.68) MIU/L Crossmatch ([facility]) See Detail 05/21/17 05/22/17 05/22/17 Range/Units 19:36 04:22 04:22 RBC 2.84 L (4.00-5.20) M/MM3 Hgb 9.7 L 7.7 L D (12-16) GM/DL Hct 30.8 L 25.2 L D (36-46) % MCHC 30.6 L (31-37) GM/DL RDW Std Deviation 50.7 H (36.9-50.2) FL Neut % (Auto) 78.9 H (33-66) % Lymph % (Auto) 9.9 L (23-45) % [place] % (Auto) 10.3 H (0-9.0) % Lymph # (Auto) 0.9 L (1-4.8) T/MM3 [place] # (Auto) 1.0 H (0-0.8) T/MM3 Abs Immat Gran (auto) 0.04 H (0.00-0.03) T/MM3 INR (0.99-1.21) Potassium 5.3 H (3.6-5) MEQ/L Chloride 118 H (98-107) MEQ/L Carbon Dioxide 18 L (22-30) MEQ/L BUN 29.0 H (7-17) MG/DL Creatinine 1.8 H (0.7-1.2) MG/DL Glucose 120 H (65-110) MG/DL Calcium 7.3 L D (8.4-10.2) MG/DL Total Protein (6.3-8.2) G/DL Albumin (3.5-5.0) G/DL Albumin/Globulin Ratio (1.1-2.2) RATIO TSH 11.70 H (0.47-4.68) MIU/L Crossmatch ([facility]) H & H 05/21/17 05/21/17 05/22/17 Range/Units 00:58 19:36 04:22 Hgb 9.5 L 9.7 L 7.7 L D (12-16) GM/DL Hct 30.4 L 30.8 L 25.2 L D (36-46) % Coagulation 05/21/17 05/21/17 Range/Units 00:58 13:42 INR 1.21 1.24 H (0.99-1.21) Orthopedic Assessment and Plan (1) Periprosthetic fracture around internal prosthetic left hip joint, initial encounter Status: Acute Assessment and Plan: Dressing dry. Moves everything okay. Hospitalist to manage fluids and decision to transfuse. Mobilize with PT / OT. WBAT but avoid pivoting or twisting on left leg. Lovenox x 30 days for VTE coverage. - Anticoagulation Therapy Anticoagulation: Lovenox 40 mg SQ Daily x 30 days from day of surgery Hospital Course Summary Disclaimer: The visit summary below is not to be considered part of the above Progress Note. Hospital Course: 05/21/17 Admission Assessment Left distal periprosthetic femur fracture Left leg pain due to femur fracture Fall approximately 2.5 weeks ago Gait instability secondary to femur fracture Hyperkalemia (POA) Acute kidney injury (POA) Stage III CKD Left shoulder pain CAD HDL Pulm HTN Hypothyroidism OA/RA Dementia Plan Inpatient admission at [facility] for definitive orthopedic intervention. Anticipate greater than 2 midnights of care needed. Consult with Dr Bernstein for orthopedic evaluation and surgical correction. Consult with Dr Toledo for metabolic bone evaluation secondary to her fragility fracture. Check Vit D level. NS for hydration and to help with YO. Recheck potassium prior to surgery. Control pain and nausea. Georges placed to DD due to pain with movements and YO - work to remove as soon as possible post op. Initiate SCD for DVT prevention - likely Lovenox post op. IS for pulmonary toilet. Start routine Senna Plus BID with Miralax daily to decrease risk for post op constipation. MOM and Dulcolax prn. PT/OT post op to maximize strength and functional status. Monitor blood counts post op - transfuse as indicated. Medically stable for surgery - only barrier elevated potassium. Care to return to [facility] at time of discharge from [facility]
--- NOTE | 2017-05-22 08:35 | XRay Report ---
Indication: Left hip revision with long stem. PROCEDURE: AP and Lateral views of the Left Femur Encounter: Initial Comparison: None Findings: The femoral component of a revised left hip prosthesis is noted with cerclage wires across a periprosthetic fracture of the mid shaft femur. There surgical enid in the subcutaneous tissues with subcutaneous gas. Arterial vascular calcifications. Impression: Findings as above. .
--- NOTE | 2017-05-22 08:36 | XRay Report ---
Indication: Left hip revision PROCEDURE: XR pelvis w/ 1 view LT hip: Encounter: Initial Comparison: September 20 2011 Findings: Revision left hip prosthesis is in noted with a new extended femoral component. Cerclage wires are seen distally. Skin enid. Expected postoperative subcutaneous gas. No evidence of hardware failure. No retained radiopaque surgical instruments or sponges. Impression: Findings as above. .
[2017-05-22] MEDS ORDERED: ENOXAPARIN 40 MG/0.4 ML INJECTION SQ SCH (09:00)
[2017-05-22] MEDS: MULTI-VIT + MINERAL (Opti-gen) TABLET PO SCH (09:15)
[2017-05-22] MEDS: SENNA + DOCUSATE TABLET PO SCH ×2 (09:16→20:56)
[2017-05-22] MEDS: FERROUS SULFATE 324 MG TABLET PO SCH ×2 (09:16→18:03)
[2017-05-22] MEDS: CALCIUM 500 + VIT D 200 TABLET PO SCH (09:16)
[2017-05-22] MEDS: ASCORBIC ACID 500 MG TABLET PO SCH (09:16)
[2017-05-22] MEDS: ACETAMINOPHEN 325 MG TABLET PO SCH ×3 (09:16→20:56)
[2017-05-22] MEDS: POLYETHYL GLYCOL 3350 17gm PACKET PO SCH (09:16)
[2017-05-22] MEDS: ESCITALOPRAM 10 MG TABLET PO SCH (09:16)
[2017-05-22] MEDS: FOLIC ACID 1 MG TABLET PO SCH (09:16)
[2017-05-22] MEDS ORDERED: NS FLUSH BAG 500ml IV PRN (10:11)
--- NOTE | 2017-05-22 10:12 | Operative Note ---
DATE OF PROCEDURE 05/21/2017 PREOPERATIVE DIAGNOSIS Left proximal femur periprosthetic fracture. POSTOPERATIVE DIAGNOSIS Left proximal femur periprosthetic fracture. PROCEDURE Revision right total hip arthroplasty for fracture. SURGEON Eris Bernstein MD HEAD OF PRECISION TARGETING Chris Butler PA-C COMPLICATIONS None. ANESTHESIA General EBL 1250 FLUIDS Please see Anesthetic records. DESCRIPTION OF PROCEDURE Mrs. Woodall and her left hip were identified and marked in the preoperative holding area. She was brought back to the operating suite and placed supine on the operating table. She was placed under general anesthesia. She was then placed in a lateral decubitus position with her left hip up. The left lower extremity was prepped and draped in my normal sterile fashion. Time-out was performed. I utilized the previous posterior incision. Dissection was carried down to the muscle fascia which was primarily scar tissue down to the joint capsule which again had a significant amount of scar tissue. A capsulotomy was performed. Fracture hematoma was evacuated. There was a large fracture to the greater trochanter. The stem was loosened in the proximal femur. Her previous constrained liner appeared to be intact in good condition. We removed the constrained liner using an osteotome to dislocate the hip. The head was then removed and then again the stem was removed without much difficulty. Again, the fracture was accessed. There was a large fracture to the greater trochanter and there was comminution around the medial calcar as well. We began reaming and reamed to a size 21. I then took an x-ray and on the x-ray it was noted the fracture actually extended along the lateral cortex down to about midshaft. We then removed the 21 broach. I then extended the incision down the lateral thigh and dissected, bringing the vastus lateralis anteriorly. Fracture site was easily identified. It did not appear to be a new fracture. I do believe this was likely displacement of a previous fracture that occurred when the proximal fracture occurred. The fracture site was cleaned and reduced under direct visualization. I then placed a fibular strut graft lateral to the femur over the fracture site and placed cables, one proximal and one distal, and tightened these down. Fluoroscopic images showed good reduction at the fracture site. Then went back and started reaming again, starting with the 17 and reamed again to a 21 reamer. Fluoroscopic images confirmed a good fit and that her fracture remained well reduced. After thorough irrigation, a final 21 x 195 stem was placed. We then trialed with a +20 body with a standard head. This gave her good stability, but, due to the fact that she has dementia, I was concerned that she may not follow hip precautions, so we did elect to place an MDM head. A liner for the MDM was placed and then we trialed the MDM head. This did give much better stability. She was still short at the knees by approximately a centimeter, but her tissues were tight. I assume that she had been short for quite a while. After another irrigation, a final +20 body was placed at the proper anteversion and a standard MDM head followed by a final reduction I then went back and retightened the cables and I crimped them and cut off the excess. I did add one more cable distally. Aricept solution was used throughout the case to irrigate. A joint cocktail was injected about the soft tissues. The capsulotomy was repaired with #1 Ethibond. The IT band and vastus lateralis was closed with #1 Vicryl. The subcutaneous tissue was closed with 2-0 Vicryl and the skin was closed with enid. A sterile dressing was then placed. She did receive two units of blood during the procedure and then was taken back to the Recovery Room under the care of Anesthesia. JACOBO
--- NOTE | 2017-05-22 10:22 | Progress Note ---
<Madelaine Womack V - Last Filed: 05/22/17 10:18> - Date 05/22/17 Subjective: Santa is seen this morning while up in the chair. She is concerned that she is cold and does not have any clothes here with her. She reports at rest she does not have any left hip pain however with movement she does have some discomfort. Blood pressure has been borderline low 99-103 systolic. She is comfortably breathing on room air without distress. She is noted to be up 6 kilograms since admission. Appetite is good. She did eat 100% of breakfast today. Objective Vital signs: Temperature 98.0 F 05/22/17 08:08 Pulse Rate 87 05/22/17 08:08 Respiratory Rate 18 05/22/17 08:08 Blood Pressure 103/56 05/22/17 08:08 Pulse Oximetry 96 05/22/17 08:08 Height/Weight/BMI: Height 1.66 m Weight 66 kg Body Mass Index 21.8 - Constitutional Present: no acute distress, well nourished, well developed - Routine HEENT Exam Eye: Present: EOMI ENT: Present: mucous membranes moist, dentition normal - Routine Respiratory Exam Present: CTA bilaterally. Absent: wheezes - Routine Cardiovascular Exam Present: RRR, S1, S2. Absent: murmur - Routine Abdominal Exam Present: soft, normoactive bowel sounds, non distended. Absent: tenderness - Routine Extremities Exam Present: normal capillary refill Comments: Left hip post-op pain - Routine Skin Exam Present: dry, warm - Routine Neurological Exam Present: alert, oriented X3, CN II-XII intact - Routine Lymphatic Exam Lymphatic: Absent: adenopathy - Routine Psychiatric Exam Present: normal affect Results - Labs CBC & Chem 7: 05/22/17 04:22 05/22/17 04:22 Assessment and Plan (1) Hip fracture, intertrochanteric Current visit: Yes Status: Acute Assessment and Plan: Assessment Left distal periprosthetic femur fracture- 05/21 Dr. Bernstein Left leg pain due to femur fracture Fall approximately 2.5 weeks ago Gait instability secondary to femur fracture Hyperkalemia (POA) Acute kidney injury (POA) Stage III CKD Left shoulder pain CAD HDL Pulm HTN Hypothyroidism OA/RA Dementia Plan Postop orthopedic care as per Dr Bernstein Given . Decrease in hemoglobin to 7.7, will transfuse 1 unit of packed red blood cells. Given patient's history of coronary artery disease and chronic kidney disease. Will follow hemoglobin closely. Will discontinue IV fluids given. Patient is eating well and weight is up 6 kilograms since admission. Began bladder retraining to remove Georges catheter Continue with senna plus and MiraLAX for postoperative bowel motivation She'll require 30 days of postoperative Lovenox for anticoagulation Continue PT/OT to maximize strength and functional status. Dr Toledo was consulted for metabolic bone evaluation secondary to her fragility fracture. Vitamin D pending. Case discussed with attending, Dr Hilliard Hospital Course Summary Disclaimer: The visit summary below is not to be considered part of the above Progress Note. Hospital Course: 05/21/17 Admission Assessment Left distal periprosthetic femur fracture Left leg pain due to femur fracture Fall approximately 2.5 weeks ago Gait instability secondary to femur fracture Hyperkalemia (POA) Acute kidney injury (POA) Stage III CKD Left shoulder pain CAD HDL Pulm HTN Hypothyroidism OA/RA Dementia Plan [place] [facility] [place]. Anticipate greater than 2 midnights of care needed. Consult with Dr Bernstein for orthopedic evaluation and surgical correction. Consult with Dr Toledo for metabolic bone evaluation secondary to her fragility fracture. Check Vit D level. NS for hydration and to help with YO. Recheck potassium prior to surgery. Control pain and nausea. Georges placed to DD due to pain with movements and YO - work to remove as soon as possible post op. Initiate SCD for DVT prevention - likely Lovenox post op. IS for pulmonary toilet. Start routine Senna Plus BID with Miralax daily to decrease risk for post op constipation. MOM and Dulcolax prn. PT/OT post op to maximize strength and functional status. Monitor blood counts post op - transfuse as indicated. Medically stable for surgery - only barrier elevated potassium. Care to return to [facility] at time of discharge from [facility] 05/22/17- POD1- hemoglobin decreased to 7.7. Will transfuse 1 unit packed red blood cell. Begin bladder retraining and hopes to remove Georges catheter. IV fluids discontinued. Monitor weight. Patient is up 6 kilograms since admission. <Paulette Hilliard - Last Filed: 05/22/17 18:53> - Date 05/22/17 Objective Vital signs: Temperature 98.9 F 05/22/17 15:34 Pulse Rate 92 05/22/17 15:34 Respiratory Rate 16 05/22/17 15:34 Blood Pressure 105/52 05/22/17 15:34 Pulse Oximetry 99 05/22/17 15:34 Height/Weight/BMI: Height 5 ft 5.5 in Weight 145 lb 8.081 oz Body Mass Index 21.8 Results - Labs CBC & Chem 7: 05/22/17 18:20 05/22/17 04:22 Assessment and Plan (1) Hip fracture, intertrochanteric Current visit: Yes Status: Acute Assessment and Plan: I have independently evaluated and examined this patient. I reviewed the chart, the patient's history, and the PLANT ENGINEERING MANAGER/PA's documented findings as above. We discussed and formulated the assessment and plan as above with additions as below. The patient was seen in 183 with her family at bedside. She is pleasantly demented denies any problems. Does request a pillow to help adjust her positioning she can put a "crook" at her knees. In general, the patient is alert and pleasantly confused, cooperative with exam , and in no respiratory distress. HEENT: Head is atraumatic, normocephalic, no conjunctival petechiae, no oral thrush, mucous membranes are moist and pink. Lungs: Clear to auscultation without wheezes, crackles or rhonchi CV: Regular rate and rhythm without murmur Abdomen: Soft, nontender, bowel sounds are present, there is no guarding no rebound. Extremities: No clubbing, no cyanosis, no edema. Dressing on left hip with ice pack in place. Skin: Warm and dryn no sign of rash Neuro: Patient is alert Agree with plans as outlined above. The patient's potassium still remains elevated creatinine is 1.8. We'll continue to monitor lab work. We'll need to consider placement options soon. Hospital Course Summary Disclaimer: The visit summary below is not to be considered part of the above Progress Note.
[2017-05-22] MEDS: MEMANTINE 10 MG TABLET PO SCH (20:56)
[2017-05-23] MEDS: Oxycodone *IR* 5 MG TABLET PO PRN ×3 (00:29→23:49)
[2017-05-23] MEDS ORDERED: SALINE FLUSH 10ml SYRINGE IV PRN (05:27)
[2017-05-23] MEDS ORDERED: NS FLUSH BAG 500ml IV PRN (05:27)
[2017-05-23] MEDS: PANTOPRAZOLE 40 MG TABLET PO SCH (05:56)
[2017-05-23] MEDS ORDERED: LANSOPRAZOLE PO SCH (09:00)
--- NOTE | 2017-05-23 09:02 | Orthopedic Progress Note ---
Date: Subjective/Severity of Illness: Santa states she "feels fine". Does not appear in resp distress of any kind. Hgb down to 7.6 and K+ at 4.9 . Renal function remains stable. No other concerns at this time. Orthopedic Objective PO Vital signs: Temperature 99.2 F 05/23/17 07:34 Pulse Rate 84 05/23/17 07:34 Respiratory Rate 16 05/23/17 07:34 Blood Pressure 104/62 05/23/17 07:34 Pulse Oximetry 94 05/23/17 07:34 Height and Weight: Height 5 ft 5.5 in Weight 145 lb 8.081 oz Body Mass Index 21.8 - Constitutional General Appearance: Present: alert, mild distress (With movement of the leg.) - Respiratory Exam Present: non-labored - Surgical Site Incision: dressing intact, no drainage - Integumentary Exam Present: pink, warm, dry - Lymphatic Lymphatic: Absent: adenopathy - Neurological Exam Present: no deficits (Had an ankle fusion but moves the toes well.) - Psychiatric Exam Present: alert - Labs Result Diagrams: 05/23/17 04:34 05/23/17 04:34 Abnormal lab results 05/21/17 05/22/17 05/23/17 Range/Units 13:42 18:20 04:34 RBC 2.73 L (4.00-5.20) M/MM3 Hgb 7.8 L 7.6 L (12-16) GM/DL Hct 23.8 L (36-46) % Neut % (Auto) 73.7 H (33-66) % Lymph % (Auto) 11.2 L (23-45) % [place] % (Auto) 10.0 H (0-9.0) % Eos % (Auto) 4.6 H (0-4) % [place] # (Auto) 1.0 H (0-0.8) T/MM3 Chloride (98-107) MEQ/L Carbon Dioxide (22-30) MEQ/L BUN (7-17) MG/DL Creatinine (0.7-1.2) MG/DL Glucose (65-110) MG/DL Calcium (8.4-10.2) MG/DL Crossmatch (AHG) See Detail 05/23/17 Range/Units 04:34 RBC (4.00-5.20) M/MM3 Hgb (12-16) GM/DL Hct (36-46) % Neut % (Auto) (33-66) % Lymph % (Auto) (23-45) % [place] % (Auto) (0-9.0) % Eos % (Auto) (0-4) % [place] # (Auto) (0-0.8) T/MM3 Chloride 116 H (98-107) MEQ/L Carbon Dioxide 19 L (22-30) MEQ/L BUN 29.0 H (7-17) MG/DL Creatinine 1.7 H (0.7-1.2) MG/DL Glucose 111 H (65-110) MG/DL Calcium 7.7 L (8.4-10.2) MG/DL Crossmatch (AHG) H & H 05/21/17 05/21/17 05/22/17 Range/Units 00:58 19:36 04:22 Hgb 9.5 L 9.7 L 7.7 L D (12-16) GM/DL Hct 30.4 L 30.8 L 25.2 L D (36-46) % 05/22/17 05/23/17 Range/Units 18:20 04:34 Hgb 7.8 L 7.6 L (12-16) GM/DL Hct 23.8 L (36-46) % Coagulation 05/21/17 05/21/17 Range/Units 00:58 13:42 INR 1.21 1.24 H (0.99-1.21) Orthopedic Assessment and Plan (1) Periprosthetic fracture around internal prosthetic left hip joint, initial encounter Status: Acute Assessment and Plan: Dressing dry. Moves everything okay. Hospitalist to manage fluids and decision to transfuse. Mobilize with PT / OT. WBAT but avoid pivoting or twisting on left leg. Lovenox x 30 days for VTE coverage. - Anticoagulation Therapy Anticoagulation: Lovenox 40 mg SQ Daily x 30 days from day of surgery Hospital Course Summary Disclaimer: The visit summary below is not to be considered part of the above Progress Note. Hospital Course: 05/21/17 Admission Assessment Left distal periprosthetic femur fracture Left leg pain due to femur fracture Fall approximately 2.5 weeks ago Gait instability secondary to femur fracture Hyperkalemia (POA) Acute kidney injury (POA) Stage III CKD Left shoulder pain CAD HDL Pulm HTN Hypothyroidism OA/RA Dementia Plan Inpatient admission at [facility] [place] for definitive orthopedic intervention. Anticipate greater than 2 midnights of care needed. Consult with Dr Bernstein for orthopedic evaluation and surgical correction. Consult with Dr Toledo for metabolic bone evaluation secondary to her fragility fracture. Check Vit D level. NS for hydration and to help with YO. Recheck potassium prior to surgery. Control pain and nausea. Georges placed to DD due to pain with movements and YO - work to remove as soon as possible post op. Initiate SCD for DVT prevention - likely Lovenox post op. IS for pulmonary toilet. Start routine Senna Plus BID with Miralax daily to decrease risk for post op constipation. MOM and Dulcolax prn. PT/OT post op to maximize strength and functional status. Monitor blood counts post op - transfuse as indicated. Medically stable for surgery - only barrier elevated potassium. Care to return to [facility] at time of discharge from [place] 05/22/17- POD1- hemoglobin decreased to 7.7. Will transfuse 1 unit packed red blood cell. Begin bladder retraining and hopes to remove Georges catheter. IV fluids discontinued. Monitor weight. Patient is up 6 kilograms since admission.
[2017-05-23] MEDS: POLYETHYL GLYCOL 3350 17gm PACKET PO SCH (09:28)
[2017-05-23] MEDS: FOLIC ACID 1 MG TABLET PO SCH (09:29)
[2017-05-23] MEDS: MEMANTINE 10 MG TABLET PO SCH ×2 (09:29→21:01)
[2017-05-23] MEDS: ACETAMINOPHEN 325 MG TABLET PO SCH ×3 (09:29→21:00)
[2017-05-23] MEDS: MULTI-VITAMIN PLAIN TABLET PO SCH (09:29)
[2017-05-23] MEDS: ASCORBIC ACID 500 MG TABLET PO SCH (09:29)
[2017-05-23] MEDS: MULTI-VIT + MINERAL (Opti-gen) TABLET PO SCH (09:29)
[2017-05-23] MEDS: SENNA + DOCUSATE TABLET PO SCH ×2 (09:29→21:01)
[2017-05-23] MEDS: FERROUS SULFATE 324 MG TABLET PO SCH ×2 (09:29→16:41)
[2017-05-23] MEDS: CALCIUM 500 + VIT D 200 TABLET PO SCH (09:29)
[2017-05-23] MEDS: ESCITALOPRAM 10 MG TABLET PO SCH (09:30)
[2017-05-23] MEDS: ENOXAPARIN 30 MG/0.3 ML INJECTION SQ SCH (09:30)
--- NOTE | 2017-05-23 14:06 | Progress Note ---
<Madelaine Womack V - Last Filed: 05/23/17 14:02> - Date 05/23/17 Subjective: Santa is seen in breakfast. She is alert and pleasant during examination. She states that earlier she felt that her leg had fallen off of the chair, however, it did not. He has ice pack noted to the left hip with normal sensation distally. She denies current pain in the hip with rest. Denies feeling short of breath or having abdominal complaints. She is voiding without difficulty, bowels have not moved since surgery. Objective Vital signs: Temperature 98.4 F 05/23/17 11:26 Pulse Rate 79 05/23/17 11:26 Respiratory Rate 14 05/23/17 11:26 Blood Pressure 103/57 05/23/17 11:26 Pulse Oximetry 96 05/23/17 11:26 Height/Weight/BMI: Height 1.66 m Weight 66 kg Body Mass Index 21.8 - Constitutional Present: no acute distress, well nourished, well developed - Routine HEENT Exam Eye: Present: EOMI ENT: Present: mucous membranes moist, dentition normal - Routine Respiratory Exam Present: CTA bilaterally. Absent: wheezes - Routine Cardiovascular Exam Present: RRR, S1, S2. Absent: murmur - Routine Abdominal Exam Present: soft, normoactive bowel sounds, non distended. Absent: tenderness - Routine Extremities Exam Present: pulses intact Comments: Postoperative left hip pain - Routine Skin Exam Present: intact, dry, warm - Routine Neurological Exam Present: alert, CN II-XII intact - Routine Lymphatic Exam Lymphatic: Absent: adenopathy - Routine Psychiatric Exam Present: normal affect Comments: Pleasantly confused Results - Labs CBC & Chem 7: 05/23/17 09:39 05/23/17 04:34 Assessment and Plan (1) Hip fracture, intertrochanteric Current visit: Yes Status: Acute Assessment and Plan: Impression Left distal periprosthetic femur fracture- 05/21 Dr. Bernstein Left leg pain due to femur fracture Fall approximately 2.5 weeks ago Gait instability secondary to femur fracture Hyperkalemia (POA) Acute kidney injury (POA) Stage III CKD Left shoulder pain CAD HDL Pulm HTN Hypothyroidism OA/RA Dementia Plan Hemoglobin this morning did decrease again to 7.6. Patient was given 1 unit of packed red blood cells. Her hemoglobin recheck later was 8.8. Will recheck a hemoglobin again tomorrow morning. This will likely need to be followed in the outpatient setting Electrolytes improved and creatinine remained stable at 1.7 Continue with 30 days of Lovenox postoperatively. Hopeful to be able to discharge patient tomorrow to [facility] in [place], there she will be under the care of her PCP Dr. Juany [facility] Hospital Course Summary Disclaimer: The visit summary below is not to be considered part of the above Progress Note. Hospital Course: 05/21/17 Admission Assessment Left distal periprosthetic femur fracture Left leg pain due to femur fracture Fall approximately 2.5 weeks ago Gait instability secondary to femur fracture Hyperkalemia (POA) Acute kidney injury (POA) Stage III CKD Left shoulder pain CAD HDL Pulm HTN Hypothyroidism OA/RA Dementia Plan Inpatient admission at [facility] [place] for definitive orthopedic intervention. Anticipate greater than 2 midnights of care needed. Consult with Dr Bernstein for orthopedic evaluation and surgical correction. Consult with Dr Toledo for metabolic bone evaluation secondary to her fragility fracture. Check Vit D level. NS for hydration and to help with YO. Recheck potassium prior to surgery. Control pain and nausea. Georges placed to DD due to pain with movements and YO - work to remove as soon as possible post op. Initiate SCD for DVT prevention - likely Lovenox post op. IS for pulmonary toilet. Start routine Senna Plus BID with Miralax daily to decrease risk for post op constipation. MOM and Dulcolax prn. PT/OT post op to maximize strength and functional status. Monitor blood counts post op - transfuse as indicated. Medically stable for surgery - only barrier elevated potassium. Care to return to [facility] at time of discharge from [place] 05/22/17- POD1- hemoglobin decreased to 7.7. Will transfuse 1 unit packed red blood cell. Begin bladder retraining and hopes to remove Georges catheter. IV fluids discontinued. Monitor weight. Patient is up 6 kilograms since admission. 05/23/17 - received 1 unit of packed red blood cells today. Will recheck hemoglobin tomorrow morning. Hopeful for possible discharge to [place] Thursday 05/24 <Paulette Hilliard - Last Filed: 05/23/17 15:35> - Date 05/23/17 Objective Vital signs: Temperature 98.4 F 05/23/17 11:26 Pulse Rate 79 05/23/17 11:26 Respiratory Rate 14 05/23/17 11:26 Blood Pressure 103/57 05/23/17 11:26 Pulse Oximetry 96 05/23/17 11:26 Height/Weight/BMI: Height 5 ft 5.5 in Weight 145 lb 8.081 oz Body Mass Index 21.8 Results - Labs CBC & Chem 7: 05/23/17 09:39 05/23/17 04:34 Assessment and Plan (1) Hip fracture, intertrochanteric Current visit: Yes Status: Acute Assessment and Plan: I have independently evaluated and examined this patient. I reviewed the chart, the patient's history, and the SQL REPORT DEVELOPER/PA's documented findings as above. We discussed and formulated the assessment and plan as above with additions as below. The patient was seen by me at 12:35 PM. She remains pleasantly confused. She reports that she is very cold she has multiple blankets on her as she is sitting at the bedside. She has hungry and looking forward to lunch. She denies nausea, vomiting, diarrhea. She denies pain. In general, the patient is alert and cooperative with exam, and in no respiratory distress. HEENT: Head is atraumatic, normocephalic, no conjunctival petechiae, no oral thrush, mucous membranes are moist and pink. Lungs: Clear to auscultation without wheezes, crackles or rhonchi CV: Regular rate and rhythm without murmur Abdomen: Soft, nontender, bowel sounds are present, there is no guarding no rebound. Extremities: No clubbing, no cyanosis, no edema. Skin: Warm and dry no sign of rash Neuro: Patient is alert If her lab work remained stable in the morning, will hopefully transfer her to [place] tomorrow. Hospital Course Summary Disclaimer: The visit summary below is not to be considered part of the above Progress Note. Addendum entered and electronically signed by Madelaine Womack APRN 05/23/17 14 :07: Also added to the above plan. Did increase Synthroid dose to 175 milligrams daily, given mild hypothyroidism. This will need to be followed in the outpatient setting.
[2017-05-23] MEDS: SIMVASTATIN 40 MG TABLET PO SCH (21:01)
[2017-05-24] MEDS: LEVOTHYROXINE 175 MCG TABLET PO SCH (06:00)
[2017-05-24] MEDS: PANTOPRAZOLE 40 MG TABLET PO SCH (06:00)
--- NOTE | 2017-05-24 08:14 | Orthopedic Progress Note ---
Date: Subjective/Severity of Illness: Santa is reporting mild pain this AM. She knows me and is oriented to place and time. No CP or SOA. Denies feeling lightheaded or dizzy but she is still in bed this AM. No new complaints. Orthopedic Objective PO Vital signs: Temperature 96.1 F L 05/24/17 07:43 Pulse Rate 84 05/24/17 07:43 Respiratory Rate 18 05/24/17 07:43 Blood Pressure 110/56 05/24/17 07:43 Pulse Oximetry 95 05/24/17 07:43 Height and Weight: Height 5 ft 5.5 in Weight 146 lb 6.191 oz Body Mass Index 21.8 - Constitutional General Appearance: Present: alert, no acute distress - Respiratory Exam Present: non-labored - Extremities Exam Extremities: Present: pulses intact - Surgical Site Incision: dressing intact, no drainage - Integumentary Exam Present: pink, warm, dry - Neurological Exam Present: no deficits (Had an ankle fusion but moves the toes well.) - Psychiatric Exam Present: alert, oriented - Labs Result Diagrams: 05/24/17 04:33 05/24/17 04:32 Abnormal lab results 05/21/17 05/23/17 05/24/17 Range/Units 13:42 09:39 04:32 RBC (4.00-5.20) M/MM3 Hgb 8.8 L D (12-16) GM/DL Hct (36-46) % RDW Std Deviation (36.9-50.2) FL Neutrophils % (Manual) (33-66) % Lymphocytes % (Manual) (23-45) % Chloride 116 H (98-107) MEQ/L Carbon Dioxide 20 L (22-30) MEQ/L BUN 25.0 H (7-17) MG/DL Creatinine 1.4 H D (0.7-1.2) MG/DL Calcium 7.6 L (8.4-10.2) MG/DL Crossmatch (AHG) See Detail 05/24/17 Range/Units 04:33 RBC 2.88 L (4.00-5.20) M/MM3 Hgb 8.0 L (12-16) GM/DL Hct 25.1 L (36-46) % RDW Std Deviation 50.6 H (36.9-50.2) FL Neutrophils % (Manual) 76.0 H (33-66) % Lymphocytes % (Manual) 13.0 L (23-45) % Chloride (98-107) MEQ/L Carbon Dioxide (22-30) MEQ/L BUN (7-17) MG/DL Creatinine (0.7-1.2) MG/DL Calcium (8.4-10.2) MG/DL Crossmatch (AHG) H & H 05/21/17 05/21/17 05/22/17 Range/Units 00:58 19:36 04:22 Hgb 9.5 L 9.7 L 7.7 L D (12-16) GM/DL Hct 30.4 L 30.8 L 25.2 L D (36-46) % 05/22/17 05/23/17 05/23/17 Range/Units 18:20 04:34 09:39 Hgb 7.8 L 7.6 L 8.8 L D (12-16) GM/DL Hct 23.8 L (36-46) % 05/24/17 Range/Units 04:33 Hgb 8.0 L (12-16) GM/DL Hct 25.1 L (36-46) % Coagulation 05/21/17 05/21/17 Range/Units 00:58 13:42 INR 1.21 1.24 H (0.99-1.21) Orthopedic Assessment and Plan (1) Periprosthetic fracture around internal prosthetic left hip joint, initial encounter Status: Acute Assessment and Plan: Dressing dry. Hospitalist to manage medically. Mobilize with PT / OT. WBAT but avoid pivoting or twisting on left leg. Lovenox x 30 days for VTE coverage. Will need f/u with orthopedics 3 weeks post op. - Anticoagulation Therapy Anticoagulation: Lovenox 40 mg SQ Daily x 30 days from day of surgery Hospital Course Summary Disclaimer: The visit summary below is not to be considered part of the above Progress Note. Hospital Course: 05/21/17 Admission Assessment Left distal periprosthetic femur fracture Left leg pain due to femur fracture Fall approximately 2.5 weeks ago Gait instability secondary to femur fracture Hyperkalemia (POA) Acute kidney injury (POA) Stage III CKD Left shoulder pain CAD HDL Pulm HTN Hypothyroidism OA/RA Dementia Plan Inpatient admission at [facility] [place] for definitive orthopedic intervention. Anticipate greater than 2 midnights of care needed. Consult with Dr Bernstein for orthopedic evaluation and surgical correction. Consult with Dr Toledo for metabolic bone evaluation secondary to her fragility fracture. Check Vit D level. NS for hydration and to help with YO. Recheck potassium prior to surgery. Control pain and nausea. Georges placed to DD due to pain with movements and YO - work to remove as soon as possible post op. Initiate SCD for DVT prevention - likely Lovenox post op. IS for pulmonary toilet. Start routine Senna Plus BID with Miralax daily to decrease risk for post op constipation. MOM and Dulcolax prn. PT/OT post op to maximize strength and functional status. Monitor blood counts post op - transfuse as indicated. Medically stable for surgery - only barrier elevated potassium. Care to return to [facility] at time of discharge from [place] 05/22/17- POD1- hemoglobin decreased to 7.7. Will transfuse 1 unit packed red blood cell. Begin bladder retraining and hopes to remove Georges catheter. IV fluids discontinued. Monitor weight. Patient is up 6 kilograms since admission. 05/23/17 - received 1 unit of packed red blood cells today. Will recheck hemoglobin tomorrow morning. Hopeful for possible discharge to [place] Thursday 05/24
[2017-05-24] MEDS: MULTI-VITAMIN PLAIN TABLET PO SCH (10:02)
[2017-05-24] MEDS: MULTI-VIT + MINERAL (Opti-gen) TABLET PO SCH (10:02)
[2017-05-24] MEDS: ACETAMINOPHEN 325 MG TABLET PO SCH ×3 (10:02→21:13)
[2017-05-24] MEDS: FERROUS SULFATE 324 MG TABLET PO SCH ×2 (10:03→19:04)
[2017-05-24] MEDS: SENNA + DOCUSATE TABLET PO SCH ×2 (10:03→21:17)
[2017-05-24] MEDS: CALCIUM 500 + VIT D 200 TABLET PO SCH (10:03)
[2017-05-24] MEDS: ESCITALOPRAM 10 MG TABLET PO SCH (10:04)
[2017-05-24] MEDS: ASCORBIC ACID 500 MG TABLET PO SCH (10:04)
[2017-05-24] MEDS: FOLIC ACID 1 MG TABLET PO SCH (10:04)
[2017-05-24] MEDS: MEMANTINE 10 MG TABLET PO SCH ×2 (10:04→21:15)
[2017-05-24] MEDS: POLYETHYL GLYCOL 3350 17gm PACKET PO SCH (10:05)
[2017-05-24] MEDS: ENOXAPARIN 30 MG/0.3 ML INJECTION SQ SCH (10:05)
--- NOTE | 2017-05-24 11:55 | Discharge Instructions ---
Discharge Plan - Med Rec/Dispo Referrals/Follow Up: Billy Toledo MD [Physician] - 2 Months (FOR METABOLIC BONE DISEASE) ESTER CALDERON MD [Family Provider] - 2 Weeks Eris Bernstein MD [Physician] - 2 Weeks [place] Instructions: Blood Transfusion (GEN) Additional Instructions: Her hemoglobin was on 05/24/17. Blood transfusions 4 units of blood total 1 unit on 05/21/17 2 unit on 05/21/17 3 unit 05/22/17 4 unit 05/23/17 (05/24/17 Hgb 8.0) Prescriptions: No Action Escitalopram Oxalate 1 tab PO DAILY #0 tab Rivastigmine Tartrate [Rivastigmine] 1 cap PO BID Pantoprazole Sodium [Protonix] 40 mg PO DAILY Potassium Chloride [Klor-Con M20] 20 meq PO DAILY Calcium Carbonate/Vitamin D3 [Oyster Shell 500-Vit D3 200 Tb] 1 each PO DAILY Oxycodone/Apap 7.5/325 [Percocet 7.5/325] 1 - 2 tab PO Q6H PRN PRN Reason: Pain Vits A,C,E/Lutein/Minerals [Ocuvite with Lutein Tablet] 1 each PO DAILY Mupirocin Calcium [Mupirocin] 1 applic BID Ferrous Sulfate [Ferosul] 60 mg PO BID Memantine [Namenda] 10 mg PO HS Acetaminophen [Tylenol] 2 tab PO TID Folic Acid [Folate] 1 tab PO DAILY Rutin/Hesp/Bioflav/C/Herb#196 [Bioflex Tablet] 1 each PO DAILY Levothyroxine Sodium 150 mcg PO DAILY #30 Ascorbate Calcium [Vitamin C] 500 mg PO DAILY #0 tab Simvastatin [Zocor] 1 tab PO DAILY Lansoprazole [Prevacid] 1 cap PO DAILY Memantine HCl [Namenda Xr] 14 mg PO DAILY Multivitamin [One Daily] 1 each PO DAILY
--- NOTE | 2017-05-24 11:59 | Progress Note ---
- Date 05/24/17 Subjective: The patient was seen at 11:30 AM. She remains pleasantly confused. She denies any lightheadedness, dizziness, she has a poor appetite. She has not been out of bed. Objective Vital signs: Temperature 96.1 F L 05/24/17 07:43 Pulse Rate 84 05/24/17 07:43 Respiratory Rate 18 05/24/17 07:43 Blood Pressure 110/56 05/24/17 07:43 Pulse Oximetry 95 05/24/17 07:43 Height/Weight/BMI: Height 5 ft 5.5 in Weight 146 lb 6.191 oz Body Mass Index 21.8 - Additional findings Additional findings: In general, the patient is alert and pleasantly confused, cooperative with exam , and in no respiratory distress. HEENT: Head is atraumatic, normocephalic, no conjunctival petechiae, slight conjunctival pallor, no oral thrush, mucous membranes are moist and pink. Lungs: Clear to auscultation without wheezes, crackles or rhonchi CV: Regular rate and rhythm without murmur Abdomen: Soft, nontender, bowel sounds are present, there is no guarding no rebound. Extremities: No clubbing, no cyanosis, no edema. Dressing on left hip is clean and dry Skin: Warm and dry, no sign of rash Neuro: Patient is alert Results - Labs CBC & Chem 7: 05/24/17 04:33 05/24/17 04:32 Labs: Blood transfusions 4 units of blood total 1 unit on 05/21/17 2 unit on 05/21/17 3 unit 05/22/17 4 unit 05/23/17 (05/24/17 Hgb 8.0) Laboratory Tests 12/04/16 12/16/16 05/21/17 11:10 21:21 00:58 Hgb 11.7 L 10.6 L 9.5 L Potassium Chloride Creatinine 05/21/17 05/21/17 05/21/17 00:58 13:42 19:36 Hgb 9.7 L Potassium 5.2 H 5.2 H Chloride Creatinine 2.1 H 1.8 H D 05/22/17 05/22/17 05/22/17 04:22 04:22 18:20 Hgb 7.7 L D 7.8 L Potassium 5.3 H Chloride 118 H Creatinine 1.8 H 05/23/17 05/23/17 05/24/17 04:34 09:39 04:33 Hgb 7.6 L 8.8 L D 8.0 L Potassium Chloride Creatinine Assessment and Plan (1) Hip fracture, intertrochanteric Current visit: Yes Status: Acute Assessment and Plan: Assessment Left distal periprosthetic femur fracture, status post 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 Left leg pain due to femur fracture Anemia-the patient has a hemoglobin at baseline of around 10 according to previous records. She has required a transfusion on the with 2 units, on the with 1 unit, on the with 1 unit and her hemoglobin still remains at the 8 level. She has no sign of active bleeding. Presumably her anemia is secondary to the hematoma over left hip fracture however I'm concerned that she continues to require transfusions. Fall approximately 2.5 weeks ago Gait instability secondary to femur fracture Hyperkalemia (POA) resolved Acute kidney injury (POA) resolved Stage III CKD Left shoulder pain CAD HDL Pulm HTN Hypothyroidism OA/RA Dementia Plan We will delay transfer to [facility] until Saturday. We will continue to monitor his hemoglobin without transfusion today. We'll Hemoccult her stool Continue oral iron. Continue work with physical therapy as tolerated. Discussed with Dr. Garcia earlier today when it was thought she might be discharged, he would like to follow up with her in 2 weeks. If she remains stable without requiring transfusions over the weekend will consider discharge on Saturday. Care to return to [facility] at time of discharge from [facility]. Hospital Course Summary Disclaimer: The visit summary below is not to be considered part of the above Progress Note. Hospital Course: 05/21/17 Admission Assessment Left distal periprosthetic femur fracture Left leg pain due to femur fracture Fall approximately 2.5 weeks ago Gait instability secondary to femur fracture Hyperkalemia (POA) Acute kidney injury (POA) Stage III CKD Left shoulder pain CAD HDL Pulm HTN Hypothyroidism OA/RA Dementia Plan Inpatient admission at [facility] for definitive orthopedic intervention. Anticipate greater than 2 midnights of care needed. Consult with Dr Bernstein for orthopedic evaluation and surgical correction. Consult with Dr Toledo for metabolic bone evaluation secondary to her fragility fracture. Check Vit D level. NS for hydration and to help with YO. Recheck potassium prior to surgery. Control pain and nausea. Georges placed to DD due to pain with movements and YO - work to remove as soon as possible post op. Initiate SCD for DVT prevention - likely Lovenox post op. IS for pulmonary toilet. Start routine Senna Plus BID with Miralax daily to decrease risk for post op constipation. MOM and Dulcolax prn. PT/OT post op to maximize strength and functional status. Monitor blood counts post op - transfuse as indicated. Medically stable for surgery - only barrier elevated potassium. Care to return to [facility] at time of discharge from [place] 05/22/17- POD1- hemoglobin decreased to 7.7. Will transfuse 1 unit packed red blood cell. Begin bladder retraining and hopes to remove Georges catheter. IV fluids discontinued. Monitor weight. Patient is up 6 kilograms since admission. 05/23/17 - received 1 unit of packed red blood cells today. Will recheck hemoglobin tomorrow morning. Hopeful for possible discharge to [place] Thursday 05/24
[2017-05-24] MEDS: Oxycodone *IR* 5 MG TABLET PO PRN (14:28)
[2017-05-24] MEDS: SIMVASTATIN 40 MG TABLET PO SCH (21:15)
[2017-05-25] MEDS: LEVOTHYROXINE 175 MCG TABLET PO SCH (06:51)
[2017-05-25] MEDS: PANTOPRAZOLE 40 MG TABLET PO SCH (06:51)
[2017-05-25] MEDS: Oxycodone *IR* 5 MG TABLET PO PRN ×2 (06:51→19:49)
[2017-05-25] MEDS: FERROUS SULFATE 324 MG TABLET PO SCH ×2 (08:53→19:49)
[2017-05-25] MEDS: ACETAMINOPHEN 325 MG TABLET PO SCH ×3 (08:53→22:03)
[2017-05-25] MEDS: ESCITALOPRAM 10 MG TABLET PO SCH (08:54)
[2017-05-25] MEDS: FOLIC ACID 1 MG TABLET PO SCH (08:54)
[2017-05-25] MEDS: ENOXAPARIN 30 MG/0.3 ML INJECTION SQ SCH (08:54)
[2017-05-25] MEDS: CALCIUM 500 + VIT D 200 TABLET PO SCH (08:54)
[2017-05-25] MEDS: ASCORBIC ACID 500 MG TABLET PO SCH (08:54)
[2017-05-25] MEDS: SENNA + DOCUSATE TABLET PO SCH ×2 (08:55→22:05)
[2017-05-25] MEDS: MULTI-VITAMIN PLAIN TABLET PO SCH (08:55)
[2017-05-25] MEDS: POLYETHYL GLYCOL 3350 17gm PACKET PO SCH ×2 (08:55→09:01)
[2017-05-25] MEDS: MULTI-VIT + MINERAL (Opti-gen) TABLET PO SCH (08:55)
[2017-05-25] MEDS: MEMANTINE 10 MG TABLET PO SCH ×2 (08:55→22:05)
--- NOTE | 2017-05-25 10:24 | Progress Note ---
<Madelaine Womack V - Last Filed: 05/25/17 10:21> - Date 05/25/17 Subjective: Santa is seen this morning in follow-up. She is pleasantly confused, however, without complaints. Nursing staff concerned that patient does not like to get up out of bed. Georges catheter continues to remain in place and bladder retraining has been ongoing for several days. She denies having any chest pain, shortness of breath. GI concerns. Objective Vital signs: Temperature 96.2 F L 05/25/17 08:00 Pulse Rate 74 05/25/17 08:00 Respiratory Rate 16 05/25/17 08:00 Blood Pressure 106/58 05/25/17 08:00 Pulse Oximetry 97 05/25/17 08:00 Height/Weight/BMI: Height 1.66 m Weight 63.4 kg Body Mass Index 21.8 - Constitutional Present: well nourished, well developed - Routine HEENT Exam Eye: Present: EOMI ENT: Present: mucous membranes moist, dentition normal - Routine Respiratory Exam Present: CTA bilaterally. Absent: wheezes - Routine Cardiovascular Exam Present: RRR, S1, S2. Absent: murmur - Routine Abdominal Exam Present: soft, normoactive bowel sounds, non distended. Absent: tenderness - Routine Extremities Exam Present: edema (left thigh- postop), normal capillary refill - Routine Musculoskeletal Exam Musculoskeletal: Present: other (Left hip pain) - Routine Skin Exam Present: intact, dry, warm - Routine Neurological Exam Present: alert, oriented X3, CN II-XII intact - Routine Lymphatic Exam Lymphatic: Absent: adenopathy - Routine Psychiatric Exam Present: cooperative Results - Labs CBC & Chem 7: 05/25/17 04:58 05/25/17 04:57 Assessment and Plan (1) Hip fracture, intertrochanteric Current visit: Yes Status: Acute Assessment and Plan: Assessment Left distal periprosthetic femur fracture, status post 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 Left leg pain due to femur fracture Anemia-the patient has a hemoglobin at baseline of around 10 according to previous records. She has required a transfusion on the with 2 units, on the with 1 unit, on the with 1 unit and her hemoglobin still remains at the 8 level. She has no sign of active bleeding. Presumably her anemia is secondary to the hematoma over left hip fracture however I'm concerned that she continues to require transfusions. Fall approximately 2.5 weeks ago Gait instability secondary to femur fracture Hyperkalemia (POA) resolved Acute kidney injury (POA) resolved Stage III CKD Left shoulder pain CAD HDL Pulm HTN Hypothyroidism OA/RA Dementia Plan Continue to follow serial hemoglobin as patient has required 4 units of packed red blood cell transfusion since surgery. Hemoglobin this morning is 8.1 Continue work with physical therapy as tolerated. We'll discontinue Georges catheter today. Hopefully this will encourage patient to get up and move more. Continue to encourage work with PT and OT for postoperative strengthening. Creatinine continues to trend down at 1.3 Planning for likely discharge to [facility] on Saturday Hospital Course Summary Disclaimer: The visit summary below is not to be considered part of the above Progress Note. Hospital Course: 05/21/17 Admission Assessment Left distal periprosthetic femur fracture Left leg pain due to femur fracture Fall approximately 2.5 weeks ago Gait instability secondary to femur fracture Hyperkalemia (POA) Acute kidney injury (POA) Stage III CKD Left shoulder pain CAD HDL Pulm HTN Hypothyroidism OA/RA Dementia Plan Inpatient admission at [facility] for definitive orthopedic intervention. Anticipate greater than 2 midnights of care needed. Consult with Dr Bernstein for orthopedic evaluation and surgical correction. Consult with Dr Toledo for metabolic bone evaluation secondary to her fragility fracture. Check Vit D level. NS for hydration and to help with YO. Recheck potassium prior to surgery. Control pain and nausea. Georges placed to DD due to pain with movements and YO - work to remove as soon as possible post op. Initiate SCD for DVT prevention - likely Lovenox post op. IS for pulmonary toilet. Start routine Senna Plus BID with Miralax daily to decrease risk for post op constipation. MOM and Dulcolax prn. PT/OT post op to maximize strength and functional status. Monitor blood counts post op - transfuse as indicated. Medically stable for surgery - only barrier elevated potassium. Care to return to [facility] at time of discharge from [facility] 05/22/17- POD1- hemoglobin decreased to 7.7. Will transfuse 1 unit packed red blood cell. Begin bladder retraining and hopes to remove Georges catheter. IV fluids discontinued. Monitor weight. Patient is up 6 kilograms since admission. 05/23/17 - received 1 unit of packed red blood cells today. Will recheck hemoglobin tomorrow morning. Hopeful for possible discharge to [place] Thursday 05/2405/25/17 10:24 Plan Continue to follow serial hemoglobin as patient has required 4 units of packed red blood cell transfusion since surgery. Hemoglobin this morning is 8.1 Continue work with physical therapy as tolerated. We'll discontinue Georges catheter today. Hopefully this will encourage patient to get up and move more. Continue to encourage work with PT and OT for postoperative strengthening. Creatinine continues to trend down at 1.3 Planning for likely discharge to [facility] on Saturday <Paulette Hilliard - Last Filed: 05/25/17 13:36> - Date 05/25/17 Objective Vital signs: Temperature 96.0 F L 05/25/17 11:23 Pulse Rate 71 05/25/17 11:23 Respiratory Rate 16 05/25/17 11:23 Blood Pressure 106/54 05/25/17 11:23 Pulse Oximetry 99 05/25/17 11:23 Height/Weight/BMI: Height 5 ft 5.5 in Weight 139 lb 12.369 oz Body Mass Index 21.8 Results - Labs CBC & Chem 7: 05/25/17 04:58 05/25/17 04:57 Assessment and Plan (1) Hip fracture, intertrochanteric Current visit: Yes Status: Acute Assessment and Plan: I have independently evaluated and examined this patient. I reviewed the chart, the patient's history, and the CONING MACHINE OPERATOR/PA's documented findings as above. We discussed and formulated the assessment and plan as above with additions as below. The patient was seen at 11:45 AM. Family is at bedside. Remains pleasantly confused. She reports she is looking forward to eating lunch. In general, the patient is alert and cooperative with exam, and in no respiratory distress. HEENT: Head is atraumatic, normocephalic, no conjunctival petechiae, no oral thrush, mucous membranes are moist and pink. Lungs: Clear to auscultation without wheezes, crackles or rhonchi CV: Regular rate and rhythm without murmur Abdomen: Soft, nontender, bowel sounds are present, there is no guarding no rebound. Extremities: No clubbing, no cyanosis, no edema. Skin: Warm and dry no sign of rash Neuro: Patient is alert Discussed with family. In light of her repeated transfusions, we elected to keep her here for the weekend to monitor her hemoglobin and make sure it stabilizes without requiring a repeat transfusion. The plan is for her to transfer to [facility] on Saturday. Their questions were answered. Hospital Course Summary Disclaimer: The visit summary below is not to be considered part of the above Progress Note.
--- NOTE | 2017-05-25 13:58 | Discharge Instructions ---
Discharge Plan - Med Rec/Dispo Referrals/Follow Up: Billy Toledo MD [Physician] - 2 Months (FOR METABOLIC BONE DISEASE) ESTER CALDERON MD [Family Provider] - 2 Weeks Chris Butler PA [Physician Licensed Massage Practitioner] - 06/17/17 10:30 am [place] Instructions: Blood Transfusion (GEN) Additional Instructions: Her hemoglobin was on 05/24/17. Blood transfusions 4 units of blood total 1 unit on 05/21/17 2 unit on 05/21/17 3 unit 05/22/17 4 unit 05/23/17 (05/24/17 Hgb 8.0) Prescriptions: No Action Escitalopram Oxalate 1 tab PO DAILY #0 tab Rivastigmine Tartrate [Rivastigmine] 1 cap PO BID Pantoprazole Sodium [Protonix] 40 mg PO DAILY Potassium Chloride [Klor-Con M20] 20 meq PO DAILY Calcium Carbonate/Vitamin D3 [Oyster Shell 500-Vit D3 200 Tb] 1 each PO DAILY Oxycodone/Apap 7.5/325 [Percocet 7.5/325] 1 - 2 tab PO Q6H PRN PRN Reason: Pain Vits A,C,E/Lutein/Minerals [Ocuvite with Lutein Tablet] 1 each PO DAILY Mupirocin Calcium [Mupirocin] 1 applic BID Ferrous Sulfate [Ferosul] 60 mg PO BID Memantine [Namenda] 10 mg PO HS Acetaminophen [Tylenol] 2 tab PO TID Folic Acid [Folate] 1 tab PO DAILY Rutin/Hesp/Bioflav/C/Herb#196 [Bioflex Tablet] 1 each PO DAILY Levothyroxine Sodium 150 mcg PO DAILY #30 Ascorbate Calcium [Vitamin C] 500 mg PO DAILY #0 tab Simvastatin [Zocor] 1 tab PO DAILY Lansoprazole [Prevacid] 1 cap PO DAILY Memantine HCl [Namenda Xr] 14 mg PO DAILY Multivitamin [One Daily] 1 each PO DAILY
--- NOTE | 2017-05-25 17:26 | Orthopedic Progress Note ---
Date: Subjective/Severity of Illness: Santa is up to her chair this AM. Painful if she moves but not too bad at rest. She has walked short distances. Denies feeling lightheaded or dizzy. No CP. Breathing well. Orthopedic Objective PO Vital signs: Temperature 96.1 F L 05/25/17 15:43 Pulse Rate 73 05/25/17 15:43 Respiratory Rate 16 05/25/17 15:43 Blood Pressure 117/63 05/25/17 15:43 Pulse Oximetry 95 05/25/17 15:43 Height and Weight: Height 5 ft 5.5 in Weight 139 lb 12.369 oz Body Mass Index 21.8 - Constitutional General Appearance: Present: alert, no acute distress - Respiratory Exam Present: non-labored - Extremities Exam Extremities: Present: pulses intact - Knee Exam Knee Exam: Present: other (Moderate swelling left thigh. Dressing dry.) - Hip Exam Hip Exam: Present: alignment normal. Absent: abnormal rotation - Surgical Site Incision: dressing intact, no drainage - Integumentary Exam Present: pink, warm, dry - Lymphatic Lymphatic: Absent: adenopathy - Neurological Exam Present: no deficits (Had an ankle fusion but moves the toes well.) - Psychiatric Exam Present: alert, oriented - Labs Result Diagrams: 05/25/17 04:58 05/25/17 04:57 Abnormal lab results 05/25/17 05/25/17 Range/Units 04:57 04:58 RBC 2.90 L (4.00-5.20) M/MM3 Hgb 8.1 L (12-16) GM/DL Hct 25.9 L (36-46) % RDW Std Deviation 51.8 H (36.9-50.2) FL Lymph % (Auto) 14.9 L (23-45) % [place] % (Auto) 10.4 H (0-9.0) % Eos % (Auto) 8.8 H (0-4) % [place] # (Auto) 0.9 H (0-0.8) T/MM3 Eos # (Auto) 0.7 H (0-0.5) T/MM3 Chloride 115 H (98-107) MEQ/L Carbon Dioxide 20 L (22-30) MEQ/L BUN 22.0 H (7-17) MG/DL Creatinine 1.3 H D (0.7-1.2) MG/DL Calcium 7.8 L (8.4-10.2) MG/DL AST 46 H (14-36) U/L Total Protein 4.9 L (6.3-8.2) G/DL Albumin 2.1 L (3.5-5.0) G/DL Albumin/Globulin Ratio 0.8 L (1.1-2.2) RATIO H & H 05/21/17 05/21/17 05/22/17 Range/Units 00:58 19:36 04:22 Hgb 9.5 L 9.7 L 7.7 L D (12-16) GM/DL Hct 30.4 L 30.8 L 25.2 L D (36-46) % 05/22/17 05/23/17 05/23/17 Range/Units 18:20 04:34 09:39 Hgb 7.8 L 7.6 L 8.8 L D (12-16) GM/DL Hct 23.8 L (36-46) % 05/24/17 05/25/17 Range/Units 04:33 04:58 Hgb 8.0 L 8.1 L (12-16) GM/DL Hct 25.1 L 25.9 L (36-46) % Coagulation 05/21/17 05/21/17 Range/Units 00:58 13:42 INR 1.21 1.24 H (0.99-1.21) Orthopedic Assessment and Plan (1) Periprosthetic fracture around internal prosthetic left hip joint, initial encounter Status: Acute Assessment and Plan: Revision left total hip for periprosthetic fx 05/21/17 Dr Bernstein. Dressing dry. Follow anemia. Hospitalist to manage medically. Mobilize with PT / OT. WBAT but avoid pivoting or twisting on left leg. Lovenox x 30 days for VTE coverage. Will need f/u with orthopedics 3 weeks post op. Hospital Course Summary Disclaimer: The visit summary below is not to be considered part of the above Progress Note. Hospital Course: 05/21/17 Admission Assessment Left distal periprosthetic femur fracture Left leg pain due to femur fracture Fall approximately 2.5 weeks ago Gait instability secondary to femur fracture Hyperkalemia (POA) Acute kidney injury (POA) Stage III CKD Left shoulder pain CAD HDL Pulm HTN Hypothyroidism OA/RA Dementia Plan Inpatient admission at [facility] for definitive orthopedic intervention. Anticipate greater than 2 midnights of care needed. Consult with Dr Bernstein for orthopedic evaluation and surgical correction. Consult with Dr Toledo for metabolic bone evaluation secondary to her fragility fracture. Check Vit D level. NS for hydration and to help with YO. Recheck potassium prior to surgery. Control pain and nausea. Georges placed to DD due to pain with movements and YO - work to remove as soon as possible post op. Initiate SCD for DVT prevention - likely Lovenox post op. IS for pulmonary toilet. Start routine Senna Plus BID with Miralax daily to decrease risk for post op constipation. MOM and Dulcolax prn. PT/OT post op to maximize strength and functional status. Monitor blood counts post op - transfuse as indicated. Medically stable for surgery - only barrier elevated potassium. Care to return to [facility] at time of discharge from [place] 05/22/17- POD1- hemoglobin decreased to 7.7. Will transfuse 1 unit packed red blood cell. Begin bladder retraining and hopes to remove Georges catheter. IV fluids discontinued. Monitor weight. Patient is up 6 kilograms since admission. 05/23/17 - received 1 unit of packed red blood cells today. Will recheck hemoglobin tomorrow morning. Hopeful for possible discharge to [place] Thursday 05/2405/25/17 10:24 Plan Continue to follow serial hemoglobin as patient has required 4 units of packed red blood cell transfusion since surgery. Hemoglobin this morning is 8.1 Continue work with physical therapy as tolerated. We'll discontinue Georges catheter today. Hopefully this will encourage patient to get up and move more. Continue to encourage work with PT and OT for postoperative strengthening. Creatinine continues to trend down at 1.3 Planning for likely discharge to [facility] on Saturday
[2017-05-25] MEDS: SIMVASTATIN 40 MG TABLET PO SCH (22:05)
[2017-05-26] MEDS: HYDROMORPHONE 2 MG/ML INJECTION IVP PRN (01:03)
[2017-05-26] MEDS: PANTOPRAZOLE 40 MG TABLET PO SCH (06:19)
[2017-05-26] MEDS: LEVOTHYROXINE 175 MCG TABLET PO SCH (06:19)
[2017-05-26] MEDS: FERROUS SULFATE 324 MG TABLET PO SCH ×2 (09:09→18:11)
[2017-05-26] MEDS: Oxycodone *IR* 5 MG TABLET PO PRN ×2 (09:09→16:04)
[2017-05-26] MEDS: ESCITALOPRAM 10 MG TABLET PO SCH (09:10)
[2017-05-26] MEDS: ENOXAPARIN 30 MG/0.3 ML INJECTION SQ SCH (09:10)
[2017-05-26] MEDS: ACETAMINOPHEN 325 MG TABLET PO SCH ×3 (09:11→20:16)
[2017-05-26] MEDS: ASCORBIC ACID 500 MG TABLET PO SCH (09:11)
[2017-05-26] MEDS: CALCIUM 500 + VIT D 200 TABLET PO SCH (09:11)
[2017-05-26] MEDS: FOLIC ACID 1 MG TABLET PO SCH (09:11)
[2017-05-26] MEDS: MULTI-VIT + MINERAL (Opti-gen) TABLET PO SCH (09:11)
[2017-05-26] MEDS: MEMANTINE 10 MG TABLET PO SCH ×2 (09:11→20:16)
[2017-05-26] MEDS: POLYETHYL GLYCOL 3350 17gm PACKET PO SCH (09:12)
[2017-05-26] MEDS: SENNA + DOCUSATE TABLET PO SCH ×2 (09:12→20:16)
[2017-05-26] MEDS: MULTI-VITAMIN PLAIN TABLET PO SCH (09:12)
--- NOTE | 2017-05-26 10:51 | Orthopedic Progress Note ---
Date: Subjective/Severity of Illness: Santa is doing well. No new complaints. She was able to get up to the BR this AM and then back to bed for dressing change. Orthopedic Objective PO Vital signs: Temperature 96.1 F L 05/26/17 08:00 Pulse Rate 78 05/26/17 08:00 Respiratory Rate 16 05/26/17 08:00 Blood Pressure 106/52 05/26/17 08:00 Pulse Oximetry 96 05/26/17 08:00 Height and Weight: Height 5 ft 5.5 in Weight 139 lb 12.369 oz Body Mass Index 21.8 - Constitutional General Appearance: Present: alert, no acute distress - Respiratory Exam Present: non-labored - Extremities Exam Extremities: Present: pulses intact - Knee Exam Knee Exam: Present: other (Moderate swelling left thigh. Dressing changed. ) - Hip Exam Hip Exam: Present: alignment normal, other (Leg does externally rotate while standing but she can actively move it to neutral.). Absent: abnormal rotation ( Pt reports she tended to externally rotate the leg prior to this surgery.) - Surgical Site Incision: enid present, dressing intact, other (Old dressing had dried bloody drainage but the wound is clean and dry this AM.) - Integumentary Exam Present: pink, warm, dry - Neurological Exam Present: no deficits (Had an ankle fusion but moves the toes well.) - Psychiatric Exam Present: alert, oriented - Labs Result Diagrams: 05/26/17 05:01 05/26/17 05:01 Abnormal lab results 05/26/17 05/26/17 Range/Units 05:01 05:01 RBC 2.91 L (4.00-5.20) M/MM3 Hgb 8.0 L (12-16) GM/DL Hct 26.2 L (36-46) % MCHC 30.5 L (31-37) GM/DL RDW Std Deviation 53.3 H (36.9-50.2) FL Lymph % (Auto) 16.1 L (23-45) % [place] % (Auto) 11.4 H (0-9.0) % Eos % (Auto) 11.0 H (0-4) % [place] # (Auto) 0.9 H (0-0.8) T/MM3 Eos # (Auto) 0.9 H (0-0.5) T/MM3 Chloride 115 H (98-107) MEQ/L BUN 21.0 H (7-17) MG/DL Calcium 8.1 L (8.4-10.2) MG/DL H & H 05/21/17 05/21/17 05/22/17 Range/Units 00:58 19:36 04:22 Hgb 9.5 L 9.7 L 7.7 L D (12-16) GM/DL Hct 30.4 L 30.8 L 25.2 L D (36-46) % 05/22/17 05/23/17 05/23/17 Range/Units 18:20 04:34 09:39 Hgb 7.8 L 7.6 L 8.8 L D (12-16) GM/DL Hct 23.8 L (36-46) % 05/24/17 05/25/17 05/26/17 Range/Units 04:33 04:58 05:01 Hgb 8.0 L 8.1 L 8.0 L (12-16) GM/DL Hct 25.1 L 25.9 L 26.2 L (36-46) % Coagulation 05/21/17 05/21/17 Range/Units 00:58 13:42 INR 1.21 1.24 H (0.99-1.21) Orthopedic Assessment and Plan (1) Periprosthetic fracture around internal prosthetic left hip joint, initial encounter Status: Acute Assessment and Plan: Revision left total hip for periprosthetic fx 05/21/17 Dr Bernstein. Dressing changed. Hospitalist to manage medically. Mobilize with PT / OT. WBAT but avoid pivoting or twisting on left leg and use walker at all times. Lovenox x 30 days for VTE coverage. F/U appt made. Hospital Course Summary Disclaimer: The visit summary below is not to be considered part of the above Progress Note. Hospital Course: 05/21/17 Admission Assessment Left distal periprosthetic femur fracture Left leg pain due to femur fracture Fall approximately 2.5 weeks ago Gait instability secondary to femur fracture Hyperkalemia (POA) Acute kidney injury (POA) Stage III CKD Left shoulder pain CAD HDL Pulm HTN Hypothyroidism OA/RA Dementia Plan [place]patient [place] [facility] [place] definitive [place]opedic intervention. Anticipate greater than 2 midnights of care needed. Consult with Dr Bernstein for orthopedic evaluation and surgical correction. Consult with Dr Toledo for metabolic bone evaluation secondary to her fragility fracture. Check Vit D level. NS for hydration and to help with YO. Recheck potassium prior to surgery. Control pain and nausea. Georges placed to DD due to pain with movements and YO - work to remove as soon as possible post op. Initiate SCD for DVT prevention - likely Lovenox post op. IS for pulmonary toilet. Start routine Senna Plus BID with Miralax daily to decrease risk for post op constipation. MOM and Dulcolax prn. PT/OT post op to maximize strength and functional status. Monitor blood counts post op - transfuse as indicated. Medically stable for surgery - only barrier elevated potassium. Care to return to [facility] at time of discharge from [place] 05/22/17- POD1- hemoglobin decreased to 7.7. Will transfuse 1 unit packed red blood cell. Begin bladder retraining and hopes to remove Georges catheter. IV fluids discontinued. Monitor weight. Patient is up 6 kilograms since admission. 05/23/17 - received 1 unit of packed red blood cells today. Will recheck hemoglobin tomorrow morning. Hopeful for possible discharge to [place] Thursday 05/2405/25/17 10:24 Plan Continue to follow serial hemoglobin as patient has required 4 units of packed red blood cell transfusion since surgery. Hemoglobin this morning is 8.1 Continue work with physical therapy as tolerated. We'll discontinue Goerges catheter today. Hopefully this will encourage patient to get up and move more. Continue to encourage work with PT and OT for postoperative strengthening. Creatinine continues to trend down at 1.3 Planning for likely discharge to [facility] on Saturday
--- NOTE | 2017-05-26 12:04 | Progress Note ---
<Madelaine Womack V - Last Filed: 05/26/17 12:01> - Date 05/26/17 Subjective: Santa is seen this afternoon while resting in bed. She is alert and pleasant during examination. She reports left hip is mildly tender with movement. However , she is comfortable at rest. Hemoglobin has remained stable at 8.0. No difficulty with urination after fully catheter has been removed Blood pressure this morning 106/52. Objective Vital signs: Temperature 97.7 F 05/26/17 11:41 Pulse Rate 79 05/26/17 11:41 Respiratory Rate 16 05/26/17 11:41 Blood Pressure 93/48 05/26/17 11:41 Pulse Oximetry 92 05/26/17 11:41 Height/Weight/BMI: Height 1.66 m Weight 63.4 kg Body Mass Index 21.8 - Constitutional Present: no acute distress, well nourished, well developed - Routine HEENT Exam Eye: Present: EOMI ENT: Present: mucous membranes moist, dentition normal - Routine Respiratory Exam Present: CTA bilaterally. Absent: wheezes - Routine Cardiovascular Exam Present: RRR, S1, S2. Absent: murmur - Routine Abdominal Exam Present: soft, normoactive bowel sounds, non distended. Absent: tenderness - Routine Extremities Exam Present: normal capillary refill - Routine Musculoskeletal Exam Musculoskeletal: Present: other (Left hip pain) - Routine Skin Exam Present: intact, dry, warm - Routine Neurological Exam Present: alert, CN II-XII intact Pleasantly confused - Routine Lymphatic Exam Lymphatic: Absent: adenopathy - Routine Psychiatric Exam Present: normal affect Results - Labs CBC & Chem 7: 05/26/17 05:01 05/26/17 05:01 Assessment and Plan (1) Hip fracture, intertrochanteric Current visit: Yes Status: Acute Assessment and Plan: Impression Left distal periprosthetic femur fracture, status post 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 Left leg pain due to femur fracture Anemia-the patient has a hemoglobin at baseline of around 10 according to previous records. She has required a transfusion on the with 2 units, on the with 1 unit, on the with 1 unit and her hemoglobin still remains at the 8 level. She has no sign of active bleeding. Presumably her anemia is secondary to the hematoma over left hip fracture however I'm concerned that she continues to require transfusions. Fall approximately 2.5 weeks ago Gait instability secondary to femur fracture Hyperkalemia (POA) resolved Acute kidney injury (POA) resolved Stage III CKD Left shoulder pain CAD HDL Pulm HTN Hypothyroidism OA/RA Dementia Plan Overall, but he is doing well. Hemoglobin remains stable at 8.0. We will recheck this again tomorrow morning. Georges catheter was removed yesterday and patient is voiding without difficulty. She will require 30 days of postoperative Lovenox for DVT prophylaxis Plan is to discharge patient to [facility] tomorrow if all labs remain stable Hospital Course Summary Disclaimer: The visit summary below is not to be considered part of the above Progress Note. Hospital Course: 05/21/17 Admission Assessment Left distal periprosthetic femur fracture Left leg pain due to femur fracture Fall approximately 2.5 weeks ago Gait instability secondary to femur fracture Hyperkalemia (POA) Acute kidney injury (POA) Stage III CKD Left shoulder pain CAD HDL Pulm HTN Hypothyroidism OA/RA Dementia Plan [place]patient admission at [facility] [place] definitive orthopedic intervention. Anticipate greater than 2 midnights of care needed. Consult with Dr Bernstein for orthopedic evaluation and surgical correction. Consult with Dr Toledo for metabolic bone evaluation secondary to her fragility fracture. Check Vit D level. NS for hydration and to help with YO. Recheck potassium prior to surgery. Control pain and nausea. Georges placed to DD due to pain with movements and YO - work to remove as soon as possible post op. Initiate SCD for DVT prevention - likely Lovenox post op. IS for pulmonary toilet. Start routine Senna Plus BID with Miralax daily to decrease risk for post op constipation. MOM and Dulcolax prn. PT/OT post op to maximize strength and functional status. Monitor blood counts post op - transfuse as indicated. Medically stable for surgery - only barrier elevated potassium. Care to return to [facility] at time of discharge from [place] 05/22/17- POD1- hemoglobin decreased to 7.7. Will transfuse 1 unit packed red blood cell. Begin bladder retraining and hopes to remove Georges catheter. IV fluids discontinued. Monitor weight. Patient is up 6 kilograms since admission. 05/23/17 - received 1 unit of packed red blood cells today. Will recheck hemoglobin tomorrow morning. Hopeful for possible discharge to [place] Thursday 05/2405/25/17 10:24 Plan Continue to follow serial hemoglobin as patient has required 4 units of packed red blood cell transfusion since surgery. Hemoglobin this morning is 8.1 Continue work with physical therapy as tolerated. We'll discontinue Georges catheter today. Hopefully this will encourage patient to get up and move more. Continue to encourage work with PT and OT for postoperative strengthening. Creatinine continues to trend down at 1.3 Planning for likely discharge to [facility] on Saturday05/26/17 Plan Overall, but he is doing well. Hemoglobin remains stable at 8.0. We will recheck this again tomorrow morning. Georges catheter was removed yesterday and patient is voiding without difficulty. She will require 30 days of postoperative Lovenox for DVT prophylaxis Plan is to discharge patient to [facility] tomorrow if all labs remain stable <Billy Serna - Last Filed: 05/26/17 13:54> - Date 05/26/17 Objective Vital signs: Temperature 97.7 F 05/26/17 11:41 Pulse Rate 79 05/26/17 11:41 Respiratory Rate 16 05/26/17 11:41 Blood Pressure 93/48 05/26/17 11:41 Pulse Oximetry 92 05/26/17 11:41 Height/Weight/BMI: Height 1.66 m Weight 63.4 kg Body Mass Index 21.8 Results - Labs CBC & Chem 7: 05/26/17 05:01 05/26/17 05:01 Assessment and Plan Assessment and Plan: Patient was evaluated concurrently with Madelaine Sawant. Assessment and plan were also developed concurrently with Madelaine Sawant. Patient was resting comfortably in bed. Tolerating diet. Pain managed. Exam of the leg was performed, no cellulitis or redness was noted on skin. Bandage in place appropriately. Lungs clear to auscultation, cardiac regular rate and rhythm with no murmur heard Impression Left distal periprosthetic femur fracture, status post 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 Left leg pain due to femur fracture Anemia-the patient has a hemoglobin at baseline of around 10 according to previous records. She has required a transfusion on the with 2 units, on the with 1 unit, on the 19th with 1 unit and her hemoglobin still remains at the 8 level. She has no sign of active bleeding. Presumably her anemia is secondary to the hematoma over left hip fracture however I'm concerned that she continues to require transfusions. Fall approximately 2.5 weeks ago Gait instability secondary to femur fracture Hyperkalemia (POA) resolved Acute kidney injury (POA) resolved Stage III CKD Left shoulder pain CAD HDL Pulm HTN Hypothyroidism OA/RA Dementia Plan Overall, but he is doing well. Hemoglobin remains stable at 8.0. We will recheck this again tomorrow morning. Georges catheter was removed yesterday and patient is voiding without difficulty. She will require 30 days of postoperative Lovenox for DVT prophylaxis Plan is to discharge patient to [place] care home tomorrow if all labs remain stable Billy Serna M.D. Hospital Course Summary Disclaimer: The visit summary below is not to be considered part of the above Progress Note.
[2017-05-26] MEDS: SIMVASTATIN 40 MG TABLET PO SCH (20:16)
[2017-05-27] MEDS: PANTOPRAZOLE 40 MG TABLET PO SCH (05:45)
[2017-05-27] MEDS: LEVOTHYROXINE 175 MCG TABLET PO SCH (05:45)
[2017-05-27] MEDS: MULTI-VIT + MINERAL (Opti-gen) TABLET PO SCH (08:31)
[2017-05-27] MEDS: ASCORBIC ACID 500 MG TABLET PO SCH (08:31)
[2017-05-27] MEDS: POLYETHYL GLYCOL 3350 17gm PACKET PO SCH (08:31)
[2017-05-27] MEDS: ESCITALOPRAM 10 MG TABLET PO SCH (08:31)
[2017-05-27] MEDS: FOLIC ACID 1 MG TABLET PO SCH (08:31)
[2017-05-27] MEDS: CALCIUM 500 + VIT D 200 TABLET PO SCH (08:32)
[2017-05-27] MEDS: ACETAMINOPHEN 325 MG TABLET PO SCH (08:32)
[2017-05-27] MEDS: FERROUS SULFATE 324 MG TABLET PO SCH (08:32)
[2017-05-27] MEDS: MULTI-VITAMIN PLAIN TABLET PO SCH (08:32)
[2017-05-27] MEDS: SENNA + DOCUSATE TABLET PO SCH (08:32)
[2017-05-27] MEDS: MEMANTINE 10 MG TABLET PO SCH (08:32)
[2017-05-27] MEDS ORDERED: ENOXAPARIN 40 MG/0.4 ML INJECTION SQ SCH (09:00)
--- NOTE | 2017-05-27 10:14 | Extended Care Facility Orders ---
Admission Orders Admit to:: [facility] Allergies/Adverse Reactions: Allergies hydrocodone Allergy (Intermediate, Verified 12/16/16 21:11) CRAZY/DIZZY ibuprofen Allergy (Mild, Verified 12/16/16 21:11) PHASES ME OUT epinephrine Allergy (Unknown, Verified 12/16/16 21:11) UNKNOWN; PER HISTORY iodine Allergy (Unknown, Verified 12/16/16 21:11) UNKNOWN; PER HISTORY iron Allergy (Unknown, Verified 12/16/16 21:11) UNKNOWN; PER HISTORY metoprolol Allergy (Unknown, Verified 12/16/16 21:11) UNKNOWN; PER HISTORY omeprazole Allergy (Unknown, Verified 12/16/16 21:11) UNKNOWN; PER HISTORY vancomycin Allergy (Unknown, Verified 12/16/16 21:11) HEARING LOSS etodolac Adverse Reaction (Intermediate, Verified 12/16/16 21:11) CONFUSION aspirin Adverse Reaction (Mild, Verified 12/16/16 21:11) EARS RINGING propoxyphene Adverse Reaction (Unknown, Verified 12/16/16 21:11) DIZZINESS, CRAZY DREAMS verapamil Adverse Reaction (Unknown, Verified 12/16/16 21:11) clindamycin HCl Adverse Reaction (Unknown, Uncoded 12/16/16 21:11) Clindamycin Palmitate HCl Adverse Reaction (Unknown, Uncoded 12/16/16 21:11) clindamycin phosphate Adverse Reaction (Unknown, Uncoded 12/16/16 21:11) Admitting Diagnosis: Left hip fx Admitting Physician: Sina Harrington MD Attending Physician: Sina Harrington MD Code Status: Full Code Anticiapted Length of Stay: 30 days or less Rehab Potential: fair Rehab Prognosis: fair Diet: 05/22/17 Breakfast Regular Diet [DIET] Diet Modifications: May use Facility Protocol or Standing Orders: Yes May have flu vaccine: Yes Evaluations/Treatment: PT, OT [facility] Certification: I certify that SNF services are required to be given on an Inpatient basis because of the patients need for snf care on a continuing basis for the condition(s) for which he/she received inpatient hospital services prior to his/her transfer to the SNF. SNF inpatient care is necessary for the following reasons Indication for Senior Care: Other (PT,OT) - Additional Information In Event of Arrest: Start CPR,call 911,send patient to the ER Referrals: Billy Toledo MD [Physician] - 2 Months (FOR METABOLIC BONE DISEASE) Chris Butler PA [Physician Emergency Service Restorer] - 06/17/17 10:30 am ESTER CALDERON MD [Family Provider] - 2 Weeks
--- NOTE | 2017-05-27 10:21 | Discharge Instructions ---
Discharge Plan - Med Rec/Dispo Referrals/Follow Up: Billy Toledo MD [Physician] - 2 Months (FOR METABOLIC BONE DISEASE) Chris Butler PA [Physician Sand System Operator] - 06/17/17 10:30 am ESTER BRICE MD [Family Provider] - 2 Weeks (Please Check CBC and BMP in [address] send to Dr Brice) [place]farzana Instructions: Hip Fracture (GEN), Blood Transfusion (GEN) Additional Instructions: Her hemoglobin was 8.5 on 05/27- Day of discharge on 05/24/17. Blood transfusions 4 units of blood total 1 unit on 05/21/17 2nd unit on 05/21/17 3rd unit 05/22/17 4th unit 05/23/17 (05/24/17 Hgb 8.0) Prescriptions: New Bisacodyl Supp [Dulcolax] 10 mg RECTALLY DAILY PRN supp PRN Reason: Constipation Enoxaparin Sodium [Lovenox] 40 mg SQ Q24H 25 Days syringe Milk of Magnesia [Mom] 30 ml PO DAILY PRN udc PRN Reason: Constipation Oxycodone *IR* [Roxicodone *Ir*] 5 mg PO Q6H PRN #30 tab PRN Reason: Pain Senna + Docusate [Senna Plus Tablet] 1 tab PO BID tablet Levothyroxine Tab [Synthroid] 175 mcg PO ACB tablet PEG 3350 17gm PACKET [Miralax] 17 gm PO DAILY packet Continue Escitalopram Oxalate 1 tab PO DAILY #0 tab Rivastigmine Tartrate [Rivastigmine] 1 cap PO BID Pantoprazole Sodium [Protonix] 40 mg PO DAILY Calcium Carbonate/Vitamin D3 [Oyster Shell 500-Vit D3 200 Tb] 1 each PO DAILY Vits A,C,E/Lutein/Minerals [Ocuvite with Lutein Tablet] 1 each PO DAILY Ferrous Sulfate [Ferosul] 60 mg PO BID Memantine [Namenda] 10 mg PO HS Folic Acid [Folate] 1 tab PO DAILY Rutin/Hesp/Bioflav/C/Herb#196 [Bioflex Tablet] 1 each PO DAILY Ascorbate Calcium [Vitamin C] 500 mg PO DAILY #0 tab Simvastatin [Zocor] 1 tab PO DAILY Lansoprazole [Prevacid] 1 cap PO DAILY Memantine HCl [Namenda Xr] 14 mg PO DAILY Multivitamin [One Daily] 1 each PO DAILY Discontinued Potassium Chloride [Klor-Con M20] 20 meq PO DAILY Oxycodone/Apap 7.5/325 [Percocet 7.5/325] 1 - 2 tab PO Q6H PRN PRN Reason: Pain Mupirocin Calcium [Mupirocin] 1 applic BID Levothyroxine Sodium 150 mcg PO DAILY #30 No Action Acetaminophen [Tylenol] 2 tab PO TID Discharge Instructions/Outpatient Orders: Provider Discharge Instructions Location: Determined By Patient - Disposition [facility] ([facility])
--- NOTE | 2017-05-27 10:32 | Discharge Summary ---
<Madelaine Womack V - Last Filed: 05/27/17 10:50> Discharge Information Date of admission: 05/20/17 23:45 Attending Physician: Sina Harrington MD Primary care physician: ESTER BRICE Consults: 05/21/17 00:37 Physician Consult [CONS] Routine Consulting Provider: Billy Toledo Reason For Exam: hip fracture Ordering Provider has Notified Nurse Charge Rn: No 05/21/17 06:00 Consult to Anesthesiology [CONS] Routine Consulting Provider: SAIRA Smith Reason For Exam: Preoperative Assessment 05/21/17 13:22 Physician Consult [CONS] Routine Consulting Provider: Billy Toledo Reason For Exam: Metabolic Bone Disease Ordering Provider has Notified Nurse Charge Rn: No - Discharge Diagnosis (1) Hip fracture, intertrochanteric Status: Acute Discharge Diagnosis: Left distal periprosthetic femur fracture, status post 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 Left leg pain due to femur fracture Anemia-the patient has a hemoglobin at baseline of around 10 according to previous records. She has required a transfusion on the with 2 units, on the with 1 unit, on the with 1 unit and her hemoglobin still remains at the 8 level. She has no sign of active bleeding. Presumably her anemia is secondary to the hematoma over left hip fracture however I'm concerned that she continues to require transfusions. Fall approximately 2.5 weeks ago Gait instability secondary to femur fracture Hyperkalemia (POA) resolved Acute kidney injury (POA) resolved Stage III CKD Left shoulder pain CAD HDL Pulm HTN Hypothyroidism OA/RA Dementia - Procedures Procedures: 05/21/17-Revision right total hip arthroplasty for fracture. Dr Bernstein - Laboratory Labs: 05/27/17 04:20 05/27/17 04:20 - Microbiology None - Radiology Radiology: 05/21/17- left hip [id number] of left hip prosthesis 05/21/17-venous Doppler left lower extremity-no evidence of acute DVT - Pathology None History of Present Illness HPI: The pt is a demented 86 yo who [facility] [place], [place] who fell 2 1/2 weeks ago. She was taken to the ER at that time and a X-ray and CT scan did not find any abnormalities. Since the fall she has not been ambulatory due to severe pain in the left leg and hip, and mostly lying in bed all day. Today, she was c/o chest pain and GOTTI and thus brought to the ER. In the ER, she denies any chest pain but c/o leg/ hip pain. a repeat CT scan did show a fracture in the left hip proximal to the prosthesis. The family requested to be transfered to [facility] for orthopedic evaluation. Hospital Course This is a general summary of the patient's hospital course. For more details refer to the complete medical record. Hospital course: 05/21/17 Admission Assessment Left distal periprosthetic femur fracture Left leg pain due to femur fracture Fall approximately 2.5 weeks ago Gait instability secondary to femur fracture Hyperkalemia (POA) Acute kidney injury (POA) Stage III CKD Left shoulder pain CAD HDL Pulm HTN Hypothyroidism OA/RA Dementia Plan Inpatient admission at [facility] for definitive orthopedic intervention. Anticipate greater than 2 midnights of care needed. Consult with Dr Bernstein for orthopedic evaluation and surgical correction. Consult with Dr Toledo for metabolic bone evaluation secondary to her fragility fracture. Check Vit D level. NS for hydration and to help with YO. Recheck potassium prior to surgery. Control pain and nausea. Georges placed to DD due to pain with movements and YO - work to remove as soon as possible post op. Initiate SCD for DVT prevention - likely Lovenox post op. IS for pulmonary toilet. Start routine Senna Plus BID with Miralax daily to decrease risk for post op constipation. MOM and Dulcolax prn. PT/OT post op to maximize strength and functional status. Monitor blood counts post op - transfuse as indicated. Medically stable for surgery - only barrier elevated potassium. Care to return to [facility] at time of discharge from [place] 05/22/17- POD1- hemoglobin decreased to 7.7. Will transfuse 1 unit packed red blood cell. Begin bladder retraining and hopes to remove Georges catheter. IV fluids discontinued. Monitor weight. Patient is up 6 kilograms since admission. 05/23/17 - received 1 unit of packed red blood cells today. Will recheck hemoglobin tomorrow morning. Hopeful for possible discharge to [place] Thursday 05/2405/25/17 Plan Continue to follow serial hemoglobin as patient has required 4 units of packed red blood cell transfusion since surgery. Hemoglobin this morning is 8.1 Continue work with physical therapy as tolerated. We'll discontinue Georges catheter today. Hopefully this will encourage patient to get up and move more. Continue to encourage work with PT and OT for postoperative strengthening. Creatinine continues to trend down at 1.3 Planning for likely discharge to [facility] on Saturday05/26/17 Plan Overall, but he is doing well. Hemoglobin remains stable at 8.0. We will recheck this again tomorrow morning. Georges catheter was removed yesterday and patient is voiding without difficulty. She will require 30 days of postoperative Lovenox for DVT prophylaxis Plan is to discharge patient to [facility] tomorrow if all labs remain stable 05/27/17-discharge Nuria is seen and examined today. She is alert and pleasantly confused. She denies having any difficulty breathing this morning. She reports mild pain in the left hip. We discussed her discharge plan to return to [facility] today, and she is in agreement. Her hemoglobin has remained stable, and this morning is 8.5. She did receive a total of 4 blood transfusions, 40412 units, 05/22 and 05/23. Function and electrolytes have normalized. Operative pain appears to be controlled using Roxicodone 5 every 6 hours as needed. She will continue to be on Lovenox subcutaneous daily for 25 additional days, last date 06/20/17 for postoperative anticoagulation. Have instructed on discharge instructions that she is to have a CBC and BMP in 1 week sent to PCP Dr. Brice. Patient will follow with orthopedic team, follow up appointment already established on 06/17/17 at 1030 a.m. She is discharged in stable condition. Time spent with patient: discharge greater than 30 minutes Discharge Plan - Med Rec/Dispo Referrals/Follow Up: Billy Toledo MD [Physician] - 2 Months (FOR METABOLIC BONE DISEASE) Chris Butler PA [Physician Roll Handler] - 06/17/17 10:30 am ESTER BRICE MD [Family Provider] - 2 Weeks (Please Check CBC and BMP in [address] send to Dr Brice) Timo Instructions: Hip Fracture (GEN), Blood Transfusion (GEN) Additional Instructions: Her hemoglobin was 8.5 on 05/27- Day of discharge on 05/24/17. Blood transfusions 4 units of blood total 1 unit on 05/21/17 2nd unit on 05/21/17 3rd unit 10/18/17 4th unit 05/23/17 (05/24/17 Hgb 8.0) Prescriptions: New Bisacodyl Supp [Dulcolax] 10 mg RECTALLY DAILY PRN supp PRN Reason: Constipation Enoxaparin Sodium [Lovenox] 40 mg SQ Q24H 25 Days syringe Milk of Magnesia [Mom] 30 ml PO DAILY PRN udc PRN Reason: Constipation Oxycodone *IR* [Roxicodone *Ir*] 5 mg PO Q6H PRN #30 tab PRN Reason: Pain Senna + Docusate [Senna Plus Tablet] 1 tab PO BID tablet Levothyroxine Tab [Synthroid] 175 mcg PO ACB tablet PEG 3350 17gm PACKET [Miralax] 17 gm PO DAILY packet Continue Escitalopram Oxalate 1 tab PO DAILY #0 tab Rivastigmine Tartrate [Rivastigmine] 1 cap PO BID Pantoprazole Sodium [Protonix] 40 mg PO DAILY Calcium Carbonate/Vitamin D3 [Oyster Shell 500-Vit D3 200 Tb] 1 each PO DAILY Vits A,C,E/Lutein/Minerals [Ocuvite with Lutein Tablet] 1 each PO DAILY Ferrous Sulfate [Ferosul] 60 mg PO BID Memantine [Namenda] 10 mg PO HS Folic Acid [Folate] 1 tab PO DAILY Rutin/Hesp/Bioflav/C/Herb#196 [Bioflex Tablet] 1 each PO DAILY Ascorbate Calcium [Vitamin C] 500 mg PO DAILY #0 tab Simvastatin [Zocor] 1 tab PO DAILY Lansoprazole [Prevacid] 1 cap PO DAILY Memantine HCl [Namenda Xr] 14 mg PO DAILY Multivitamin [One Daily] 1 each PO DAILY Discontinued Potassium Chloride [Klor-Con M20] 20 meq PO DAILY Oxycodone/Apap 7.5/325 [Percocet 7.5/325] 1 - 2 tab PO Q6H PRN PRN Reason: Pain Mupirocin Calcium [Mupirocin] 1 applic BID Levothyroxine Sodium 150 mcg PO DAILY #30 No Action Acetaminophen [Tylenol] 2 tab PO TID Discharge Instructions/Outpatient Orders: Provider Discharge Instructions Location: Determined By Patient - [facility]position 03 [facility] ([facility]) <Sina Harrington - Last Filed: 05/27/17 11:16> Discharge Information Date of admission: 05/20/17 23:45 Attending Physician: Sina Harrington MD Primary care physician: ESTER BRICE Consults: 05/21/17 00:37 Physician Consult [CONS] Routine Consulting Provider: Billy Toledo Reason For Exam: hip fracture Ordering Provider has Notified Nurse Charge Rn: Luzmaria 05/21/17 06:00 Consult to Anesthesiology [CONS] Routine Consulting Provider: SAIRA Smith Reason For Exam: Preoperative Assessment 05/21/17 13:22 Physician Consult [CONS] Routine Consulting Provider: Billy Toledo Reason For Exam: Metabolic Bone Disease Ordering Provider has Notified Nurse Charge Rn: No - Discharge Diagnosis (1) Hip fracture, intertrochanteric Status: Acute - Laboratory Labs: 05/27/17 04:20 05/27/17 04:20 Hospital Course This is a general summary of the patient's hospital course. For more details refer to the complete medical record. Discharge Plan - Med Rec/Dispo - Attestation Attestation Narrative: 05/27/17 11:09 I Have independently interviewed and examined patient. Chart reviewed. Case discussed with my CLEATER. Care plan developed with my supervision; agree with above. Pain problematic. Just reviewed pain medication prior to my interview. Tolerating pain medications well. No nausea. Lungs: Clear CV: regular MSE: awake alert Plan: Medically stable for discharge to [facility]. See orders for details.
[2017-05-27] MEDS: Oxycodone *IR* 5 MG TABLET PO PRN (10:49)
[2017-05-27 12:46] VITALS: BP 114/61; PULSE 73; RESP 18; TEMP 97.7; O2SAT 95
== END 2017-05-27 13:55 | DRG 467 ==
LOC: SRG 23:45 → SUATTDRO 23:45
PROVIDERS: ADMIT Internal Medicine; ATTEND Hospitalist